=== PATIENT | female | born 1930 | race Caucasian/White ===

== ENCOUNTER 2016-10-28 08:51 | Emergency (ER) | payer MEDICARE ==
[~2016-10-28] VITALS: Ht 167.6 cm; Wt 74.8 kg
[~2016-10-28 08:51] MED LIST: ACET325T21 PO; AMLO10TA2 PO; BETA1TAB10 PO; CARV12.52 PO; CARV25TA2 PO; CARV6.25 PO; CHLO12TA PO; CHLO25TA PO; CHOL10003 PO; DABI150C PO; FERR-26 PO; FURO20TA3 PO; LEVO50TA5 PO; LOSA25TA PO; OMEG500C PO; POTASSIUM CHLO10 MEQ PO; QUIN40TA7 PO
[2016-10-28] MEDS ORDERED: IBUPROFEN 600 MG TABLET. PO ONE (10:15)
[2016-10-28] MEDS ORDERED: HYDROcodone/APAP 5/325MG 1 TAB TABLET PO ONE (10:30)
--- NOTE | 2016-10-28 11:01 | RAD ---
Exam performed: 3 views bilateral knees. History: Chronic bilateral knee pain, worse to the normal. Patient is unable to bear weight. Date of service: 10/28/16. Comparison: None available 3 views bilateral knees findings: Severe narrowing of bilateral medial and lateral tibiofemoral as well as patellofemoral joint compartment is noted with diffuse osteophytic spurring. There is no acute fracture or dislocation. No soft tissue swelling or joint effusion is seen. 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 No acute abnormality noted.
[2016-10-28] MEDS ORDERED: HYDR-971 PO (13:44)
--- NOTE | 2016-10-28 13:45 | PHYS DOC ---
Past Medical History Past Medical History: A-Fib, Hypertension, Hyperthyroid, Other Additional Past Medical Histor: CHRONIC KNEE PAIN, HYPOKALEMIA Past Surgical History: Other Additional Past Surgical Histo: Right shoulder Alcohol Use: Heavy Drug Use: None Adult General Chief Complaint Chief Complaint: LOWER EXT PAIN HPI HPI 86-year-old female with a history of chronic knee pain now complaining of gradually worsening pain in both knees. Patient is having difficulty getting around because her knee pain is so bad. She takes Tylenol and previously took ibuprofen but she is under the impression she was told to stop this medication. No fall or injury no other complaints. Family is concerned about social issues regarding their mother and that she needs alf placement but she is refusing. Review of Systems Review of Systems Constitutional: Denies fever or chills [] Eyes: Denies change in visual acuity, redness, or eye pain [] HENT: Denies nasal congestion or sore throat [] Respiratory: Denies cough or shortness of breath [] Cardiovascular: No additional information not addressed in HPI [] GI: Denies abdominal pain, nausea, vomiting, bloody stools or diarrhea [] : Denies dysuria or hematuria [] Musculoskeletal: Denies back pain or joint pain [] Integument: Denies rash or skin lesions [] Neurologic: Denies headache, focal weakness or sensory changes [] Endocrine: Denies polyuria or polydipsia [] Current Medications Current Medications Current Medications Medications (Trade) Dose Ordered Sig/Ramón Start Time Stop Time Status Last Admin Dose Admin Acetaminophen/ Hydrocodone Bitart (Lortab 5/325) 1 tab 1X ONCE 10/28/16 10:30 10/28/16 10:31 DC 10/28/16 10:32 1 TAB Ibuprofen (Motrin) 600 mg 1X ONCE 10/28/16 10:15 10/28/16 10:16 DC 10/28/16 10:33 600 MG Allergies Allergies Allergies Coded Allergies Type Severity Reaction Last Updated Verified No Known Drug Allergies 08/21/15 No Physical Exam Physical Exam Constitutional: Well developed, well nourished, no acute distress, non-toxic appearance. [] HENT: Normocephalic, atraumatic, bilateral external ears normal, oropharynx moist, no oral exudates, nose normal. [] Eyes: PERRLA, EOMI, conjunctiva normal, no discharge. [] Neck: Normal range of motion, no tenderness, supple, no stridor. [] Cardiovascular:Heart rate regular rhythm, no murmur [] Lungs & Thorax: Bilateral breath sounds clear to auscultation [] Abdomen: Bowel sounds normal, soft, no tenderness, no masses, no pulsatile masses. [] Skin: Warm, dry, no erythema, no rash. [] Back: No tenderness, no CVA tenderness. [] Extremities: Chronic bony deformities of bilateral knees with no skin changes. Mild tenderness of both knees with palpation and in with range of motion. no cyanosis, no clubbing, ROM intact, no edema. [] Neurologic: Alert and oriented X 3, normal motor function, normal sensory function, no focal deficits noted. [] Psychologic: Affect normal, judgement normal, mood normal. [] Current Patient Data Vital Signs Vital Signs Date Time Temp Pulse Resp B/P (MAP) Pulse Ox O2 Delivery O2 Flow Rate FiO2 10/28/16 12:21 76 20 146/77 (100) 97 10/28/16 08:57 98.1 Room Air 98.1 EKG EKG [] Radiology/Procedures Radiology/Procedures [] Course & Med Decision Making Course & Med Decision Making Pertinent Labs and Imaging studies reviewed. (See chart for details) Signs and symptoms consistent with severe chronic arthritis with no acute disease. Patient improved with NSAIDs. She does not have adequate pain control at home. There is no acute bony abnormality whatsoever and no evidence of recent injury. No further workup or treatment is indicated. Family requested social work to discuss increased level of care for mother but no indication for admission excess today. Patient's were to use NSAIDs and will prescribe Markle for use as needed. The PCP for reevaluation and referral to orthopedics as needed to discuss possibility of qualification for knee replacement Arlyn Disclaimer Dragon Disclaimer This electronic medical record was generated, in whole or in part, using a voice recognition dictation system. Departure Departure Impression: Primary Impression: Osteoarthritis Additional Impression: Bilateral knee pain Disposition: HOME, SELF-CARE Condition: GRAVE Referrals: JENNIFER TELLES (PCP) Patient Instructions: Osteoarthritis Additional Instructions: You have severe osteoarthritis of both knees. Your arthritis is very advanced and certainly the cause of your chronic knee pain. Take anti-inflammatory medication as prescribed and use one half of one Markle pill every 6 hours as needed for breakthrough pain. Try to avoid weightbearing by using her walker to the degree that this is possible and follow-up with your doctor in 1 day for reevaluation and to discuss social issues or guarding and increased level of care either at home or with alf placement. Return immediately for new severe worsening symptoms Scripts Hydrocodone/Apap 5-325 (NORCO 5-325 TABLET) 1 Each Tablet 1 TAB PO PRN Q6HRS Y for PAIN, #14 TAB 0 Refills Take 1/2-1 pill every 6 hours as needed for pain Prov: TREV SAUNDERS MD 10/28/16 Problem Qualifiers TREV SAUNDERS MD Oct 28, 2016 13:45
[2016-10-28 14:41] VITALS: BP 176/108
== END 2016-10-28 14:15 | disposition home or self-care (01) ==
LOC: ER 08:51
DX: M17.0 Bilateral primary osteoarthritis of knee (principal); G89.29 Other chronic pain; I10 Essential (primary) hypertension; I48.91 Unspecified atrial fibrillation; E05.90 Thyrotoxicosis, unspecified without thyrotoxic crisis or storm; F10.10 Alcohol abuse, uncomplicated
CPT/HCPCS: 73562; 99284

== ENCOUNTER 2018-03-26 10:33 | Emergency (ER) | payer MEDICARE ==
[~2018-03-26] VITALS: Ht 160 cm; Wt 72.6 kg
[~2018-03-26 10:33] MED LIST changes: -AMLO10TA2 PO; +AMLO10TA6 PO; +CARV12.511 PO; -CARV12.52 PO; -CHLO25TA PO; +CHLO25TA10 PO; -FERR-26 PO; +FERR325T14 PO; +HYDR-3164 PO; +POTA10TA12 PO; -POTASSIUM CHLO10 MEQ PO; +QUIN40TA16 PO; -QUIN40TA7 PO
--- NOTE | 2018-03-26 10:58 | PHYS DOC ---
Past Medical History Past Medical History: A-Fib, Hypertension, Hypothyroid, Other Additional Past Medical Histor: CHRONIC KNEE PAIN, HYPOKALEMIA Past Surgical History: Other Additional Past Surgical Histo: Right shoulder Alcohol Use: Heavy Drug Use: None Adult General Chief Complaint Chief Complaint: ABSCESS HPI HPI Patient is a 88 year old female who presents with swelling over the right face. Patient has had symptoms over the last 3 days. She complains of pain and swelling over the right portion of her face just over the right mandible. Prior to this, she had some suspected dental pain and was evaluated by her primary care doctor last week. He placed her on Augmentin. She is currently on day 4 of this medication. Patient has not had a fever or chills. She became concerned because she noted the area to be draining some purulent material. Review of Systems Review of Systems Constitutional: Denies fever or chills Eyes: Denies change in visual acuity HENT: Denies nasal congestion or sore throat Respiratory: Denies cough or shortness of breath Cardiovascular: No additional information not addressed in HPI GI: Denies abdominal pain, nausea : Denies dysuria or hematuria Musculoskeletal: Denies back pain Neurologic: Denies headache All other systems were reviewed and found to be within normal limits, except as documented in this note. Current Medications Current Medications Current Medications Medications (Trade) Dose Ordered Sig/Ramón Start Time Stop Time Status Last Admin Dose Admin Info (CONTRAST GIVEN -- Rx MONITORING) 1 each PRN DAILY PRN 03/26/18 12:30 03/28/18 12:29 Iohexol (Omnipaque 300 Mg/ml) 50 ml 1X ONCE 03/26/18 12:30 03/26/18 12:31 DC 03/26/18 12:31 50 ML Piperacillin Sod/ Tazobactam Sod (Zosyn Per Pharmacy) 1 each PRN DAILY PRN 03/26/18 13:45 UNV Piperacillin Sod/ Tazobactam Sod 3.375 gm/Sodium Chloride 50 ml @ 100 mls/hr 1X ONCE 03/26/18 13:45 03/26/18 14:14 DC 03/26/18 14:25 100 MLS/HR Sodium Chloride 500 ml @ 500 mls/hr 1X ONCE 03/26/18 11:00 03/26/18 11:59 DC 03/26/18 11:02 500 MLS/HR Vancomycin HCl (Vanco Per Pharmacy) 1 each PRN DAILY PRN 03/26/18 13:45 UNV Vancomycin HCl 1.75 gm/Sodium Chloride 500 ml @ 250 mls/hr 1X ONCE 03/26/18 14:00 03/26/18 15:59 Allergies Allergies Allergies Coded Allergies Type Severity Reaction Last Updated Verified No Known Drug Allergies 08/21/15 No Physical Exam Physical Exam Constitutional: Well developed, well nourished, no acute distress, non-toxic appearance. overall poorly-kempt with visible dirt on the skin of her face and chest HENT: bilateral external ears normal, oropharynx moist, no oral exudates, nose normal, large area of swelling and erythema over the right side of the face just over the angle of the mandible. There is some palpable fluctuance present. There is a area of central necrotic tissue but no ulcerations. No pain with TMJ range of motion. Patient has no teeth on the corresponding mandibular area in the mouth. Neck is supple. Floor of mouth is soft Eyes: PERRLA, EOMI Neck: Normal range of motion Cardiovascular:Heart rate regular rhythm, no murmur Lungs & Thorax: Bilateral breath sounds clear to auscultation Abdomen: Bowel sounds normal, soft, no tenderness Skin: Warm, dry, no erythema, no rash Back: No tenderness, no CVA tenderness Extremities: No edema Neurologic: Alert and oriented X 3 Psychologic: Affect normal Current Patient Data Vital Signs Vital Signs Date Time Temp Pulse Resp B/P (MAP) Pulse Ox O2 Delivery O2 Flow Rate FiO2 03/26/18 13:52 80 113/56 (75) 94 Room Air 03/26/18 10:40 98.1 20 98.1 Lab Values Laboratory Tests Test 03/26/18 11:00 White Blood Count 14.6 x10^3/uL (4.0-11.0) H Red Blood Count 3.81 x10^6/uL (3.50-5.40) Hemoglobin 11.9 g/dL (12.0-15.5) L Hematocrit 35.1 % (36.0-47.0) L Mean Corpuscular Volume 92 fL (79-100) Mean Corpuscular Hemoglobin 31 pg (25-35) Mean Corpuscular Hemoglobin Concent 34 g/dL (31-37) Red Cell Distribution Width 13.8 % (11.5-14.5) Platelet Count 247 x10^3/uL (140-400) Neutrophils (%) (Auto) 85 % (31-73) H Lymphocytes (%) (Auto) 9 % (24-48) L Monocytes (%) (Auto) 5 % (0-9) Eosinophils (%) (Auto) 1 % (0-3) Basophils (%) (Auto) 1 % (0-3) Neutrophils # (Auto) 12.4 x10^3uL (1.8-7.7) H Lymphocytes # (Auto) 1.3 x10^3/uL (1.0-4.8) Monocytes # (Auto) 0.7 x10^3/uL (0.0-1.1) Eosinophils # (Auto) 0.1 x10^3/uL (0.0-0.7) Basophils # (Auto) 0.1 x10^3/uL (0.0-0.2) Sodium Level 139 mmol/L (136-145) Potassium Level 3.7 mmol/L (3.5-5.1) Chloride Level 109 mmol/L (98-107) H Carbon Dioxide Level 20 mmol/L (21-32) L Anion Gap 10 (6-14) Blood Urea Nitrogen 26 mg/dL (7-20) H Creatinine 1.4 mg/dL (0.6-1.0) H Estimated GFR (Cockcroft-Gault) 35.7 Glucose Level 112 mg/dL (70-99) H Calcium Level 9.2 mg/dL (8.5-10.1) Laboratory Tests 03/26/18 11:00 Laboratory Tests 03/26/18 11:00 EKG EKG [] Radiology/Procedures Radiology/Procedures IMPRESSION: 1. There is a complex rim-enhancing fluid collection of the right parotid gland. If there is clinical evidence of infection, parotid abscess is likely. In the setting of infection reactive regional lymph nodes are expected but are not seen on this study. Benign or malignant parotid neoplasm is not excluded. 2. Calcified meningioma of the right CPA-IAC. 3. Large left thyroid goiter with moderate rightward deviation of the trachea. 4. Periapical lucency of right mandible frontal incisor. Course & Med Decision Making Course & Med Decision Making Pertinent Labs and Imaging studies reviewed. (See chart for details) 10:50: Patient is seen and examined. No acute distress. Orders placed for IVF 's, BMP, CBC, and CT scan to further evaluate the patient's primary complaint. 14:15: All results are reviewed. The patient has mild leukocytosis. Otherwise, she is mildly dehydrated but no acute findings on labs. She was given 500 mils of normal saline in the ER. She was also given a dose of vancomycin and Zosyn. Her CT scan was revealing for a abscess over the right face near the parotid gland. I spoke to [facility] transfer line regarding transfer of this patient for evaluation by marketing researcher. The patient was accepted by transfer by Dr. Ancelmo Cunha. Plan is for the patient to go to the emergency department at where she will then be evaluated. Transfer paperwork is complete. Plan of care is discussed with the family and all of their questions are answered. The patient is agreeable. She is able to sign her on transfer papers. , The patient is in poor hygiene in the emergency department. I did ask about this. The patient states most of the day she sits around and smokes cigarettes and she accrues soot over the neck and face. Patient does not endorse feeling any danger at home and feels safe. Dragon Disclaimer Dragon Disclaimer This electronic medical record was generated, in whole or in part, using a voice recognition dictation system. Departure Departure Disposition: 05 TRANSFER OTHER Condition: GOOD Referrals: JENNIFER TELLES (PCP) ANNEMARIE RAMSAY DO Mar 26, 2018 10:58
[2018-03-26] MEDS: IV NORMAL SALINE 500ML BAG 500 ML IV ONE (11:02)
[2018-03-26 11:18] LABS: BASO # 0.1 x10^3/uL (0.0-0.2); BASO % 1 % (0-3); EOS # 0.1 x10^3/uL (0.0-0.7); EOS % 1 % (0-3); HEMATOCRIT 35.1 % (36.0-47.0); HEMOGLOBIN 11.9 g/dL (12.0-15.5); LYMPH # 1.3 x10^3/uL (1.0-4.8); LYMPH % 9 % (24-48); MEAN CORPUSCULAR HEMOGLOBIN 31 pg (25-35); MEAN CORPUSCULAR HGB CONC 34 g/dL (31-37); MEAN CORPUSCULAR VOLUME 92 fL (79-100); MONO # 0.7 x10^3/uL (0.0-1.1); MONO % 5 % (0-9); NEUT # 12.4 x10^3uL (1.8-7.7); NEUT % 85 % (31-73); PLATELET COUNT 247 x10^3/uL (140-400); RED BLOOD COUNT 3.81 x10^6/uL (3.50-5.40); RED CELL DISTRIBUTION WIDTH 13.8 % (11.5-14.5); WHITE BLOOD COUNT 14.6 x10^3/uL (4.0-11.0)
[2018-03-26 11:32] LABS: CALCIUM 9.2 mg/dL (8.5-10.1); CREATININE 1.4 mg/dL (0.6-1.0); GFR 35.7; POTASSIUM 3.7 mmol/L (3.5-5.1)
[2018-03-26] MEDS ORDERED: CONTRAST GIVEN. MC PRN (12:30)
[2018-03-26] MEDS: IOHEXOL 300 MG/ML 100ML VIAL. IV ONE (12:31)
--- NOTE | 2018-03-26 13:10 | RAD ---
PQRS Compliance Statement: One or more of the following individualized dose reduction techniques were utilized for this examination: 1. Automated exposure control 2. Adjustment of the mA and/or kV according to patient size 3. Use of iterative reconstruction technique CT SOFT TISSUE NECK W/CONTRAST Clinical Indication: mass, abscess right ,mandible angle Comparison: None. TECHNIQUE: Helical CT imaging of the soft tissues of the neck is performed after 50 cc of Omnipaque 300 IV contrast. Findings: There is a calcified mass of the right cerebellopontine angle with an intracanicular component. The mass measures approximately 1.5 x 1.5 cm. No midline shift or mass effect in the brain. The globes and orbits are intact. The mastoid air cells are clear. The paranasal sinuses are clear. There is periapical lucency of right mandible frontal incisor. Maxillary teeth are absent. The parapharyngeal fat planes are preserved. The epiglottis and aryepiglottic folds and piriform sinuses are normal. The submandibular glands are symmetric. Bilateral carotid bulb calcifications. The visualized lungs are clear. There is a heterogeneous left thyroid goiter measuring 5.4 x 5 x 6.3 cm. There is moderate rightward deviation of the trachea. There is no cervical adenopathy. At the area of palpable concern there is a superficial hypodensity with rim enhancement measuring approximately 4.5 cm AP by 3.4 cm transverse by 3.7 cm craniocaudal. This arises from the right parotid gland. The right parotid gland is increased in density compared to the contralateral side. Cervical spine alignment is maintained. IMPRESSION: 1. There is a complex rim-enhancing fluid collection of the right parotid gland. If there is clinical evidence of infection, parotid abscess is likely. In the setting of infection reactive regional lymph nodes are expected but are not seen on this study. Benign or malignant parotid neoplasm is not excluded. 2. Calcified meningioma of the right CPA-IAC. 3. Large left thyroid goiter with moderate rightward deviation of the trachea. 4. Periapical lucency of right mandible frontal incisor. Electronically signed by: Manav Abrams MD (03/26/2018 12:45 PM) [id number] [id number]
[2018-03-26] MEDS ORDERED: PIP/TAZO PER PHARMACY MC PRN (13:45)
[2018-03-26] MEDS ORDERED: VANCOMYCIN PER PHARMACY MC PRN (13:45)
[2018-03-26 13:52] VITALS: BP 113/56
[2018-03-26] MEDS: PIPERACILLIN/TAZOBACTAM 3.375 GM in IV NORMAL SALINE 50ML 50 ML IV ONE (14:25)
[2018-03-26] MEDS: VANCOMYCIN 1.75 GM in IV NORMAL SALINE 500ML BAG 500 ML IV ONE (14:37)
== END 2018-03-26 15:03 | disposition short-term general hospital (02) ==
LOC: ER 10:33
DX: L53.8 Other specified erythematous conditions (principal); F17.210 Nicotine dependence, cigarettes, uncomplicated; I48.91 Unspecified atrial fibrillation; I10 Essential (primary) hypertension; E03.9 Hypothyroidism, unspecified; F10.20 Alcohol dependence, uncomplicated; Y90.9 Presence of alcohol in blood, level not specified
CPT/HCPCS: 36415; 70491; 80048; 85025; 96365; 96368; 99285; J2543; J3370; J7040; Q9967

== ENCOUNTER 2018-05-19 11:20 | Inpatient (IN) | payer MEDICARE ==
[~2018-05-19] VITALS: Ht 160 cm; Wt 67.8 kg
[~2018-05-19 11:20] MED LIST changes: -AMLO10TA6 PO; +AMLO10TA8 PO; +ASPI81TA50 PO; +CEPH250C PO; +FAMO20TA5 PO; +FURO40TA4 PO; +HYDR-2761 PO
[2018-05-19] MEDS ORDERED: NICOTINE 21MG PATCH. TD STA (11:29)
[2018-05-19] MEDS ORDERED: methylPREDNISolone SOD SUCC PF 125 MG/2 ML VIAL. IV ONE (11:30)
[2018-05-19] MEDS ORDERED: IV NORMAL SALINE 1000ML BAG 1,000 ML IV ONE (11:30)
[2018-05-19 11:47] LABS: BASO % 1 % (0-3); EOS # 0.1 x10^3/uL (0.0-0.7); EOS % 1 % (0-3); HEMATOCRIT 40.3 % (36.0-47.0); HEMOGLOBIN 13.1 g/dL (12.0-15.5); LYMPH # 1.4 x10^3/uL (1.0-4.8); LYMPH % 13 % (24-48); MEAN CORPUSCULAR HEMOGLOBIN 29 pg (25-35); MEAN CORPUSCULAR HGB CONC 33 g/dL (31-37); MEAN CORPUSCULAR VOLUME 90 fL (79-100); MONO # 0.7 x10^3/uL (0.0-1.1); MONO % 7 % (0-9); NEUT # 8.3 x10^3uL (1.8-7.7); NEUT % 79 % (31-73); PLATELET COUNT 205 x10^3/uL (140-400); RED BLOOD COUNT 4.48 x10^6/uL (3.50-5.40); RED CELL DISTRIBUTION WIDTH 16.8 % (11.5-14.5); WHITE BLOOD COUNT 10.5 x10^3/uL (4.0-11.0)
--- NOTE | 2018-05-19 11:54 | PHYS DOC ---
Past Medical History Past Medical History: A-Fib, Hypertension, Hypothyroid, Other Additional Past Medical Histor: CHRONIC KNEE PAIN, HYPOKALEMIA Past Surgical History: Other Additional Past Surgical Histo: Right shoulder,R GLAND/JAW Alcohol Use: Heavy Drug Use: None Adult General Chief Complaint Chief Complaint: MECHANICAL FALL HPI HPI Patient is a 88 year old female with history of A. fib, hypertension, heavy smoking, who presents to the ED today to be evaluated for follow-up and a rash. Patient states last night she got up to use the bathroom, she states while getting off the toilet, she fell down landing on her buttocks. Patient denies any loss of consciousness, denies hitting her head on the ground, denies being on any anticoagulants. Denies any neck pain. She is complaining of bilateral knee pain she is unable to rate the pain. Patient is also complaining of a pruritic rash throughout her body for a while. EMS states when they got patient' s the house was dirty. Review of Systems Review of Systems Constitutional: Denies fever or chills [] Eyes: Denies change in visual acuity, redness, or eye pain [] HENT: Denies nasal congestion or sore throat [] Respiratory: Denies cough or shortness of breath [] Cardiovascular: No additional information not addressed in HPI [] GI: Denies abdominal pain, nausea, vomiting, bloody stools or diarrhea [] : Denies dysuria or hematuria [] Musculoskeletal: Bilateral knee pain, buttock pain. Integument: Reports rash Neurologic: Denies headache, focal weakness or sensory changes [] All other systems were reviewed and found to be within normal limits, except as documented in this note. Current Medications Current Medications Current Medications Medications (Trade) Dose Ordered Sig/Ramón Start Time Stop Time Status Last Admin Dose Admin Acetaminophen (Tylenol) 650 mg PRN Q4HRS PRN 05/19/18 14:30 05/20/18 14:29 UNV Methylprednisolone Sodium Succinate (SOLU-Medrol 125MG VIAL) 125 mg 1X ONCE 05/19/18 11:30 05/19/18 11:36 DC 05/19/18 11:59 125 MG Morphine Sulfate (Morphine Sulfate) 2 mg PRN Q2HR PRN 05/19/18 14:30 05/20/18 14:29 UNV Nicotine (Nicoderm Cq 21mg) 1 patch 1X STAT 05/19/18 11:29 05/19/18 11:36 DC 05/19/18 11:50 1 PATCH Ondansetron HCl (Zofran) 4 mg PRN Q8HRS PRN 05/19/18 14:30 05/20/18 14:29 UNV Sodium Chloride 1,000 ml @ 1,000 mls/hr 1X ONCE 05/19/18 11:30 05/19/18 12:29 DC 05/19/18 11:56 1,000 MLS/HR Allergies Allergies Allergies Coded Allergies Type Severity Reaction Last Updated Verified No Known Drug Allergies 08/21/15 No Physical Exam Physical Exam Constitutional: Well developed, well nourished, no acute distress, non-toxic appearance. [] HENT: Normocephalic, atraumatic, bilateral external ears normal, oropharynx moist, no oral exudates, nose normal. [] Eyes: PERRLA, EOMI, conjunctiva normal, no discharge. [] Neck: Normal range of motion, no tenderness, supple, no stridor. [] Cardiovascular:Heart rate regular rhythm, no murmur [] Lungs & Thorax: Bilateral breath sounds clear to auscultation [] Abdomen: Bowel sounds normal, soft, no tenderness, no masses, no pulsatile masses. [] Skin: Patient's skin appears dirty. Mild to moderate erythematous macular rash throughout patient's body worse on extremities, back and in between the thighs Back: Slight tenderness on palpation of the lower lumbar spline area, tenderness diffusely on palpation of bilateral knees, no obvious deformities. Full passive range of motion to bilateral knees. +2 bilateral pedal pulses. Sensation intact bilateral lower extremities. Cap refill less than 2 seconds bilateral lower extremities. Extremities: No hip tenderness bilaterally. No cyanosis, no clubbing, ROM intact , no edema. [] Neurologic: Alert and oriented X 3, normal motor function, normal sensory function, no focal deficits noted. Cranial nerves II through XII intact. Psychologic: Affect normal, judgement normal, mood normal. [] Current Patient Data Vital Signs Vital Signs Date Time Temp Pulse Resp B/P (MAP) Pulse Ox O2 Delivery O2 Flow Rate FiO2 05/19/18 11:20 97.3 84 20 115/67 (83) 99 Room Air 97.3 Lab Values Laboratory Tests Test 05/19/18 11:33 05/19/18 11:48 White Blood Count 10.5 x10^3/uL (4.0-11.0) Red Blood Count 4.48 x10^6/uL (3.50-5.40) Hemoglobin 13.1 g/dL (12.0-15.5) Hematocrit 40.3 % (36.0-47.0) Mean Corpuscular Volume 90 fL (79-100) Mean Corpuscular Hemoglobin 29 pg (25-35) Mean Corpuscular Hemoglobin Concent 33 g/dL (31-37) Red Cell Distribution Width 16.8 % (11.5-14.5) H Platelet Count 205 x10^3/uL (140-400) Neutrophils (%) (Auto) 79 % (31-73) H Lymphocytes (%) (Auto) 13 % (24-48) L Monocytes (%) (Auto) 7 % (0-9) Eosinophils (%) (Auto) 1 % (0-3) Basophils (%) (Auto) 1 % (0-3) Neutrophils # (Auto) 8.3 x10^3uL (1.8-7.7) H Lymphocytes # (Auto) 1.4 x10^3/uL (1.0-4.8) Monocytes # (Auto) 0.7 x10^3/uL (0.0-1.1) Eosinophils # (Auto) 0.1 x10^3/uL (0.0-0.7) Basophils # (Auto) 0.0 x10^3/uL (0.0-0.2) Prothrombin Time 13.8 SEC (11.7-14.0) Prothrombin Time INR 1.1 (0.8-1.1) Sodium Level 140 mmol/L (136-145) Potassium Level 3.7 mmol/L (3.5-5.1) Chloride Level 106 mmol/L (98-107) Carbon Dioxide Level 22 mmol/L (21-32) Anion Gap 12 (6-14) Blood Urea Nitrogen 15 mg/dL (7-20) Creatinine 1.3 mg/dL (0.6-1.0) H Estimated GFR (Cockcroft-Gault) 38.8 BUN/Creatinine Ratio 12 (6-20) Glucose Level 109 mg/dL (70-99) H Lactic Acid Level 2.0 mmol/L (0.4-2.0) Calcium Level 8.8 mg/dL (8.5-10.1) Magnesium Level 1.8 mg/dL (1.8-2.4) Total Bilirubin 0.8 mg/dL (0.2-1.0) Aspartate Amino Transferase (AST) 19 U/L (15-37) Alanine Aminotransferase (ALT) 12 U/L (14-59) L Alkaline Phosphatase 66 U/L (46-116) Creatine Kinase 134 U/L (26-192) Creatine Kinase MB (Mass) 1.2 ng/mL (0.0-3.6) Creatine Kinase MB Relative Index 0.9 % (0-4) Troponin I Quantitative 0.026 ng/mL (0.000-0.055) MW-Kjw-Q-Type Natriuretic Peptide 3701 pg/mL (0-449) H Total Protein 6.0 g/dL (6.4-8.2) L Albumin 2.3 g/dL (3.4-5.0) L Albumin/Globulin Ratio 0.6 (1.0-1.7) L Lipase 58 U/L (73-393) L Thyroid Stimulating Hormone (TSH) 1.328 uIU/mL (0.358-3.74) Urine Collection Type U cath Urine Color Yellow Urine Clarity Clear Urine pH 5.5 Urine Specific [place] 1.015 Urine Protein Negative mg/dL (NEG-TRACE) Urine Glucose (UA) Negative mg/dL (NEG) Urine Ketones (Stick) Negative mg/dL (NEG) Urine Blood Negative (NEG) Urine Nitrite Negative (NEG) Urine Bilirubin Negative (NEG) Urine Urobilinogen Dipstick 0.2 mg/dL (0.2 mg/dL) Urine Leukocyte Esterase Negative (NEG) Urine RBC Occ /HPF (0-2) Urine WBC 1-4 /HPF (0-4) Urine Squamous Epithelial Cells Occ /LPF Urine Bacteria Few /HPF (0-FEW) Urine Hyaline Casts Few /HPF Urine Mucus Marked /LPF Urine Opiates Screen Pos (NEG) Urine Methadone Screen Neg (NEG) Urine Barbiturates Neg (NEG) Urine Phencyclidine Screen Neg (NEG) Urine Amphetamine/Methamphetamine Neg (NEG) Urine Benzodiazepines Screen Neg (NEG) Urine Cocaine Screen Neg (NEG) Urine Cannabinoids Screen Neg (NEG) Urine Ethyl Alcohol Neg (NEG) Laboratory Tests 05/19/18 11:33 Laboratory Tests 05/19/18 11:33 EKG EKG 11:40 Interpreted by Beatriz sinus irregular rhythm HR 87 no STEMI[] Radiology/Procedures Radiology/Procedures [] Course & Med Decision Making Course & Med Decision Making Pertinent Labs and Imaging studies reviewed. (See chart for details) This is a 88-year-old female patient presenting to the ED today to be evaluated for 2 things. One she fell last night and has bilateral knee pain and slight buttock pain, no loss of consciousness. 2. She's had a rash that appears systemic for a while. Family is in the room, they state patient has had a rash for one week, this state they believe the rash began after she took Benadryl. Patient's labs do not have anything significantly acute. Urine analysis is no infection. Patient is alert and oriented 3. Lumbar spine x-rays shows patient has compression fractures of L4 and L2. Spoke with Edna KEYES for neurosurgery, she requested we order a CT of the lumbar spine and follow-up with patient. Consulted with Dr. Sweeney who accepted patient for admission. Dragon Disclaimer Dragon Disclaimer This electronic medical record was generated, in whole or in part, using a voice recognition dictation system. Departure Departure Impression: Primary Impression: Fall Additional Impressions: Rash Compression fx, lumbar spine Smoking addiction Disposition: ADMITTED INPATIENT Condition: STABLE Referrals: JENNIFER TELLES (PCP) Problem Qualifiers Primary Impression: Fall Encounter type: initial encounter Qualified Codes: W19.XXXA - Unspecified fall, initial encounter Additional Impressions: Compression fx, lumbar spine Encounter type: initial encounter Lumbar vertebra fracture level: L4 Fracture type: closed Qualified Codes: S32.040A - Wedge compression fracture of fourth lumbar vertebra, initial encounter for closed fracture EVELIN JOHANSEN BOARDING ROOM FIXER May 19, 2018 11:54
[2018-05-19 11:56] LABS: BILIRUBIN,URINE NEGATIVE (NEG); CLARITY,URINE CLEAR; COLOR,URINE YELLOW; NITRITE,URINE NEGATIVE (NEG); PH,URINE 5.5; PROTEIN,URINE NEGATIVE (NEG-TRACE); UROBILINOGEN,URINE 0.2 mg/dL (0.2 mg/dL)
[2018-05-19 11:57] LABS: PROTHROMBIN TIME PATIENT 13.8 SEC (11.7-14.0)
[2018-05-19 12:02] LABS: CALCIUM 8.8 mg/dL (8.5-10.1); CREATININE 1.3 mg/dL (0.6-1.0); GFR 38.8; POTASSIUM 3.7 mmol/L (3.5-5.1)
[2018-05-19 12:04] LABS: BARBITURATES NEG (NEG); BENZODIAZEPINES NEG (NEG); CANNABINOIDS NEG (NEG); COCAINE NEG (NEG); HYALINE CASTS, URINE FEW /HPF; METHADONE NEG (NEG); OPIATES POS (NEG); PHENCYCLIDINE NEG (NEG); SQUAMOUS EPITHELIAL CELL,UR OCC /LPF
[2018-05-19 12:06] LABS: BACTERIA,URINE FEW /HPF (0-FEW); RBC,URINE OCC /HPF (0-2)
[2018-05-19 12:08] LABS: ALBUMIN 2.3 g/dL (3.4-5.0); ALBUMIN/GLOBULIN RATIO 0.6 (1.0-1.7); MAGNESIUM 1.8 mg/dL (1.8-2.4); TOTAL BILIRUBIN 0.8 mg/dL (0.2-1.0)
[2018-05-19 12:08] LABS: AMPHETAMINE/METHAMPHETAMINE NEG (NEG)
--- NOTE | 2018-05-19 13:00 | RAD ---
PQRS Compliance Statement: One or more of the following individualized dose reduction techniques were utilized for this examination: 1. Automated exposure control 2. Adjustment of the mA and/or kV according to patient size 3. Use of iterative reconstruction technique CT HEAD WITHOUT CONTRAST History: AMS, fall. Comparison: CT head without contrast 04/13/2018. Technique: Axial images are obtained of the head from the skull base through the vertex without IV contrast. Findings: No mass-effect, midline shift, extra-axial fluid collection, hemorrhage, or obvious acute infarction is identified. Basilar cisterns are patent. The ventricles and sulci are prominent, consistent with age-related cerebral atrophy. There is mild supratentorial white matter hypoattenuation. This is a nonspecific finding but is commonly due to chronic small vessel ischemic disease. Bone windows demonstrate no acute calvarial abnormality. There is a 1.4 cm x 0.9 cm homogeneously calcified mass of the right cerebellopontine angle. Primary consideration is a meningioma. This may partially block the right internal auditory canal. Small air-fluid level in the left maxillary sinus. Mastoid air cells are well aerated. IMPRESSION: 1. No acute intracranial hemorrhage or obvious infarct. 2. Calcified mass of the right cerebellopontine angle, primary consideration is a meningioma. If diagnosis is not known recommend MR brain with and without contrast, IAC protocol. 3. Mild periventricular white matter changes probably due to chronic small vessel ischemic disease. Generalized cerebral atrophy. 4. Small air-fluid level in the left maxillary sinus suggests acute sinusitis. Electronically signed by: Manav Abrams MD (05/19/2018 12:57 PM) [id number]
--- NOTE | 2018-05-19 13:17 | RAD ---
Portable chest, 05/19/2018: HISTORY: Fall Comparison is made to a study from 01/25/2016. The heart is enlarged. There is calcific plaquing and tortuosity of the thoracic aorta. The pulmonary vascularity is normal. A density overlying the right upper chest is most likely due to an overlying soft tissue density or skinfold. There is minimal linear atelectasis or scarring laterally in the left base. There is no evidence of pleural fluid or pneumothorax. Moderate spurring is present in the spine. A surgical plate and screws is partially visualized in the proximal right humerus. IMPRESSION: 1. Cardiomegaly and aortic atherosclerosis. 2. Probable skin fold overlying the right upper chest. PA and lateral chest radiographs may be useful for confirmation, if clinically indicated Electronically signed by: Roberto Morgan MD (05/19/2018 1:15 PM) [facility]
--- NOTE | 2018-05-19 13:21 | RAD ---
Left knee, 3 views, 05/19/2018: HISTORY: Chronic pain, recent fall The bony structures are demineralized. There is severe narrowing of the left knee joint with marginal spurring and articular irregularity. There is extensive patellofemoral hypertrophic degenerative change. No acute fracture or dislocation is identified. No significant joint effusion is evident. Moderate arterial calcifications are noted. IMPRESSION: 1. Demineralization. 2. Severe hypertrophic degenerative change at the left knee. 3. No acute bony abnormality is detected. Lumbar spine, 3 views, 05/19/2018: HISTORY: Fall, pain The bony structures are demineralized. There is a moderate vertebral compression deformity at L4 and a mild vertebral compression deformity at L2, both which were not present on CT images from 08/23/2015. There are moderate scattered marginal spurs. There is moderate to severe facet joint arthropathy bilaterally in the lower lumbar spine. Moderate aortoiliac calcific plaquing is present. IMPRESSION: 1. Demineralization. 2. Moderate degenerative change. 3. L4 and L2 vertebral compression fractures which are new since 08/23/2015. Electronically signed by: Roberto Morgan MD (05/19/2018 1:19 PM) [facility]
[2018-05-19] MEDS ORDERED: MORPHINE SULFATE 2 MG/ML VIAL. IV PRN (14:30)
[2018-05-19] MEDS ORDERED: ONDANSETRON PF 4 MG/2 ML VIAL. IV PRN (14:30)
[2018-05-19] MEDS ORDERED: ACETAMINOPHEN 325 MG TABLET. PO PRN (14:30)
--- NOTE | 2018-05-19 15:19 | PDOC1 ---
History and Physical Date of Admission Date of Admission DATE: 05/19/18 TIME: 15:19 Source Source: Caregiver, Chart review, Patient History of Present Illness History of Present Illness Ms. Alonso, is a 88 year old female admit from ER s/p a fall at home, right knee pain and back pain. She has with history of A. fib, hypertension, tobacco use. prior admit here last month acute renal failure and UTI. she complains of back pain and knee pain and severe rash, beefy red rash to buttock and trunk and thighs, her son has been putting A+D ointment and OTC meds on with no improfement, rash has puritic sensation she fell last night off the toilet onto her buttock and now having pain. no LOC. pt brought by EMS, could not walk, Past Medical History Cardiovascular: AFIB, HTN Pulmonary: No pertinent hx CENTRAL NERVOUS SYSTEM: Other GI: Gastritis Heme/Onc: No pertinent hx Hepatobiliary: No pertinent hx Psych: No pertinent hx Musculoskeletal: Osteoarthritis Rheumatologic: No pertinent hx Infectious disease: No pertinent hx Renal/: No pertinent hx Endocrine: Hypothyroidism Past Surgical History Past Surgical History: Cataract Removal, Other Family History Family History: No Significant, Family History Unknown, Other Social History Smoke: 1 pack per day (or more) ALCOHOL: none Drugs: None Current Problem List Problem List Problems Medical Problems: (1) Compression fx, lumbar spine Status: Acute (2) Fall Status: Acute (3) Rash Status: Acute (4) Smoking addiction Status: Acute Current Medications Current Medications Current Medications Methylprednisolone Sodium Succinate (SOLU-Medrol 125MG VIAL) 125 mg 1X ONCE IV Last administered on 05/19/18at 11:59; Start 05/19/18 at 11:30; Stop 05/19/18 at 11:36; Status DC Sodium Chloride 1,000 ml @ 1,000 mls/hr 1X ONCE IV Last administered on at 11:56; Start 05/19/18 at 11:30; Stop 05/19/18 at 12:29; Status DC Nicotine (Nicoderm Cq 21mg) 1 patch 1X STAT TD Last administered on 05/19/18at 11:50; Start 05/19/18 at 11:29; Stop 05/19/18 at 11:36; Status DC Ondansetron HCl (Zofran) 4 mg PRN Q8HRS PRN IV NAUSEA/VOMITING; Start 05/19/18 at 14:30; Stop 05/20/18 at 14:29 Morphine Sulfate (Morphine Sulfate) 2 mg PRN Q2HR PRN IV PAIN; Start 05/19/18 at 14:30; Stop 05/20/18 at 14:29 Acetaminophen (Tylenol) 650 mg PRN Q4HRS PRN PO FEVER; Start 05/19/18 at 14:30 ; Stop 05/20/18 at 14:29 Aspirin (Ecotrin) 81 mg DAILY PO ; Start 05/20/18 at 09:00 Carvedilol (Coreg) 6.25 mg BIDWMEALS PO ; Start 05/19/18 at 17:00 Cephalexin HCl (Keflex) 250 mg QID PO ; Start 05/19/18 at 17:00 Famotidine (Pepcid) 20 mg DAILY PO ; Start 05/20/18 at 09:00 Acetaminophen/ Hydrocodone Bitart (Lortab 5/325) 1 tab PRN Q4HRS PRN PO MODERATE PAIN; Start 05/19/18 at 14:45 Losartan Potassium (Cozaar) 25 mg DAILY PO ; Start 05/20/18 at 09:00 Potassium Chloride (Klor-Con) 10 meq DAILY PO ; Start 05/20/18 at 09:00 Active Scripts Active Cephalexin 250 Mg Capsule 250 Mg PO QID 5 Days Hydrocodone-Apap 5-325 (Hydrocodone Bit/Acetaminophen) 1 Tab Tablet 1 Tab PO PRN Q4-6HRS PRN 5 Days Cozaar (Losartan Potassium) 25 Mg Tablet 25 Mg PO DAILY Reported Famotidine 20 Mg Tablet 20 Mg PO DAILY Aspir-Low (Aspirin) 81 Mg Tablet.dr 81 Mg PO DAILY Furosemide 40 Mg Tablet 40 Mg PO DAILY Coreg (Carvedilol) 6.25 Mg Tablet 6.25 Mg PO BIDWMEALS Potassium Chloride 10 Meq Capsule.er 10 Meq PO DAILY Allergies Allergies: Coded Allergies: No Known Drug Allergies (Unverified , 08/21/15) ROS General: YES: Fatigue, Malaise PSYCHOLOGICAL ROS: YES: Sleep disturbances Eyes: No Blurry vision, No Decreased vision, No Double vision, No Dry eyes, No Excessive tearing, No Eye Pain, No Itchy Eyes, No Loss of vision, No Photophobia , No Scotomata, No Uses contacts, No Uses glasses, No Other HEENT: No: Heacaches, Visual Changes, Hearing change, Nasal congestion, Nasal discharge, Oral lesions, Sinus pain, Sore Throat, Epistaxis, Sneezing, Snoring, Tinnitus, Vertigo, Vocal changes, Other Respiratory: YES: Cough; No: Hemoptysis, Orthopnea, Pleuritic Pain, Shortness of breath, SOB with excertion, Sputum Changes, Stridor, Tachypnea, Wheezing, Other Cardiovascular: No Chest Pain, No Palpitations, No Orthopnea, No Paroxysmal Noc. Dyspnea, No Edema, No Lt Headedness, No Other Gastrointestinal: No Nausea, No Vomiting, No Abdominal Pain, No Diarrhea, No Constipation, No Melena, No Hematochezia, No Other Genitourinary: No Dysuria, No Frequency, No Incontinence, No Hematuria, No Retention, No Discharge, No Urgency, No Pain, No Flank Pain, No Other, No , No , No , No , No , No , No Musculoskeletal: Yes Gait Disturbance, Yes Joint Stiffness, Yes Muscular Weakness, Yes Pain In: (knee) Skin: Yes Dry Skin, Yes Eczema, Yes Rash, Yes Other Physical Exam General: Alert, Oriented X3, Cooperative, mild distress, Other (sunken face, ) HEENT: EOMI, Other Lungs: Clear to auscultation, Normal air movement Heart: no gallops Abdomen: Normal bowel sounds, Soft Rectal Exam: not examined Extremities: Other (right knee severe pain, poor mobility, tr edema) Skin: Other (large diffuse area of rash, mult skin thinkening on face, ) Neuro: Sensation intact Psych/Mental Status: Mood NL Vitals Vitals Vital Signs Date Time Temp Pulse Resp B/P (MAP) Pulse Ox O2 Delivery O2 Flow Rate FiO2 05/19/18 11:20 97.3 84 20 115/67 (83) 99 Room Air 97.3 Labs Labs Laboratory Tests Test 05/19/18 11:33 05/19/18 11:48 White Blood Count 10.5 x10^3/uL (4.0-11.0) Red Blood Count 4.48 x10^6/uL (3.50-5.40) Hemoglobin 13.1 g/dL (12.0-15.5) Hematocrit 40.3 % (36.0-47.0) Mean Corpuscular Volume 90 fL (79-100) Mean Corpuscular Hemoglobin 29 pg (25-35) Mean Corpuscular Hemoglobin Concent 33 g/dL (31-37) Red Cell Distribution Width 16.8 % (11.5-14.5) Platelet Count 205 x10^3/uL (140-400) Neutrophils (%) (Auto) 79 % (31-73) Lymphocytes (%) (Auto) 13 % (24-48) Monocytes (%) (Auto) 7 % (0-9) Eosinophils (%) (Auto) 1 % (0-3) Basophils (%) (Auto) 1 % (0-3) Neutrophils # (Auto) 8.3 x10^3uL (1.8-7.7) Lymphocytes # (Auto) 1.4 x10^3/uL (1.0-4.8) Monocytes # (Auto) 0.7 x10^3/uL (0.0-1.1) Eosinophils # (Auto) 0.1 x10^3/uL (0.0-0.7) Basophils # (Auto) 0.0 x10^3/uL (0.0-0.2) Prothrombin Time 13.8 SEC (11.7-14.0) Prothromb Time International Ratio 1.1 (0.8-1.1) Sodium Level 140 mmol/L (136-145) Potassium Level 3.7 mmol/L (3.5-5.1) Chloride Level 106 mmol/L (98-107) Carbon Dioxide Level 22 mmol/L (21-32) Anion Gap 12 (6-14) Blood Urea Nitrogen 15 mg/dL (7-20) Creatinine 1.3 mg/dL (0.6-1.0) Estimated GFR (Cockcroft-Gault) 38.8 BUN/Creatinine Ratio 12 (6-20) Glucose Level 109 mg/dL (70-99) Lactic Acid Level 2.0 mmol/L (0.4-2.0) Calcium Level 8.8 mg/dL (8.5-10.1) Magnesium Level 1.8 mg/dL (1.8-2.4) Total Bilirubin 0.8 mg/dL (0.2-1.0) Aspartate Amino Transf (AST/SGOT) 19 U/L (15-37) Alanine Aminotransferase (ALT/SGPT) 12 U/L (14-59) Alkaline Phosphatase 66 U/L (46-116) Creatine Kinase 134 U/L (26-192) Creatine Kinase MB (Mass) 1.2 ng/mL (0.0-3.6) Creatine Kinase MB Relative Index 0.9 % (0-4) Troponin I Quantitative 0.026 ng/mL (0.000-0.055) [id number]-Type Natriuretic Peptide 3701 pg/mL (0-449) Total Protein 6.0 g/dL (6.4-8.2) Albumin 2.3 g/dL (3.4-5.0) Albumin/Globulin Ratio 0.6 (1.0-1.7) Lipase 58 U/L (73-393) Thyroid Stimulating Hormone (TSH) 1.328 uIU/mL (0.358-3.74) Urine Collection Type U cath Urine Color Yellow Urine Clarity Clear Urine pH 5.5 Urine Specific [place] 1.015 Urine Protein Negative mg/dL (NEG-TRACE) Urine Glucose (UA) Negative mg/dL (NEG) Urine Ketones (Stick) Negative mg/dL (NEG) Urine Blood Negative (NEG) Urine Nitrite Negative (NEG) Urine Bilirubin Negative (NEG) Urine Urobilinogen Dipstick 0.2 mg/dL (0.2 mg/dL) Urine Leukocyte Esterase Negative (NEG) Urine RBC Occ /HPF (0-2) Urine WBC 1-4 /HPF (0-4) Urine Squamous Epithelial Cells Occ /LPF Urine Bacteria Few /HPF (0-FEW) Urine Hyaline Casts Few /HPF Urine Mucus Marked /LPF Urine Opiates Screen Pos (NEG) Urine Methadone Screen Neg (NEG) Urine Barbiturates Neg (NEG) Urine Phencyclidine Screen Neg (NEG) Urine Amphetamine/Methamphetamine Neg (NEG) Urine Benzodiazepines Screen Neg (NEG) Urine Cocaine Screen Neg (NEG) Urine Cannabinoids Screen Neg (NEG) Urine Ethyl Alcohol Neg (NEG) Laboratory Tests Test 05/19/18 11:33 05/19/18 11:48 White Blood Count 10.5 x10^3/uL (4.0-11.0) Red Blood Count 4.48 x10^6/uL (3.50-5.40) Hemoglobin 13.1 g/dL (12.0-15.5) Hematocrit 40.3 % (36.0-47.0) Mean Corpuscular Volume 90 fL (79-100) Mean Corpuscular Hemoglobin 29 pg (25-35) Mean Corpuscular Hemoglobin Concent 33 g/dL (31-37) Red Cell Distribution Width 16.8 % (11.5-14.5) Platelet Count 205 x10^3/uL (140-400) Neutrophils (%) (Auto) 79 % (31-73) Lymphocytes (%) (Auto) 13 % (24-48) Monocytes (%) (Auto) 7 % (0-9) Eosinophils (%) (Auto) 1 % (0-3) Basophils (%) (Auto) 1 % (0-3) Neutrophils # (Auto) 8.3 x10^3uL (1.8-7.7) Lymphocytes # (Auto) 1.4 x10^3/uL (1.0-4.8) Monocytes # (Auto) 0.7 x10^3/uL (0.0-1.1) Eosinophils # (Auto) 0.1 x10^3/uL (0.0-0.7) Basophils # (Auto) 0.0 x10^3/uL (0.0-0.2) Prothrombin Time 13.8 SEC (11.7-14.0) Prothromb Time International Ratio 1.1 (0.8-1.1) Sodium Level 140 mmol/L (136-145) Potassium Level 3.7 mmol/L (3.5-5.1) Chloride Level 106 mmol/L (98-107) Carbon Dioxide Level 22 mmol/L (21-32) Anion Gap 12 (6-14) Blood Urea Nitrogen 15 mg/dL (7-20) Creatinine 1.3 mg/dL (0.6-1.0) Estimated GFR (Cockcroft-Gault) 38.8 BUN/Creatinine Ratio 12 (6-20) Glucose Level 109 mg/dL (70-99) Lactic Acid Level 2.0 mmol/L (0.4-2.0) Calcium Level 8.8 mg/dL (8.5-10.1) Magnesium Level 1.8 mg/dL (1.8-2.4) Total Bilirubin 0.8 mg/dL (0.2-1.0) Aspartate Amino Transf (AST/SGOT) 19 U/L (15-37) Alanine Aminotransferase (ALT/SGPT) 12 U/L (14-59) Alkaline Phosphatase 66 U/L (46-116) Creatine Kinase 134 U/L (26-192) Creatine Kinase MB (Mass) 1.2 ng/mL (0.0-3.6) Creatine Kinase MB Relative Index 0.9 % (0-4) Troponin I Quantitative 0.026 ng/mL (0.000-0.055) RS-[id number]-S-Type Natriuretic Peptide 3701 pg/mL (0-449) Total Protein 6.0 g/dL (6.4-8.2) Albumin 2.3 g/dL (3.4-5.0) Albumin/Globulin Ratio 0.6 (1.0-1.7) Lipase 58 U/L (73-393) Thyroid Stimulating Hormone (TSH) 1.328 uIU/mL (0.358-3.74) Urine Collection Type U cath Urine Color Yellow Urine Clarity Clear Urine pH 5.5 Urine Specific [place] 1.015 Urine Protein Negative mg/dL (NEG-TRACE) Urine Glucose (UA) Negative mg/dL (NEG) Urine Ketones (Stick) Negative mg/dL (NEG) Urine Blood Negative (NEG) Urine Nitrite Negative (NEG) Urine Bilirubin Negative (NEG) Urine Urobilinogen Dipstick 0.2 mg/dL (0.2 mg/dL) Urine Leukocyte Esterase Negative (NEG) Urine RBC Occ /HPF (0-2) Urine WBC 1-4 /HPF (0-4) Urine Squamous Epithelial Cells Occ /LPF Urine Bacteria Few /HPF (0-FEW) Urine Hyaline Casts Few /HPF Urine Mucus Marked /LPF Urine Opiates Screen Pos (NEG) Urine Methadone Screen Neg (NEG) Urine Barbiturates Neg (NEG) Urine Phencyclidine Screen Neg (NEG) Urine Amphetamine/Methamphetamine Neg (NEG) Urine Benzodiazepines Screen Neg (NEG) Urine Cocaine Screen Neg (NEG) Urine Cannabinoids Screen Neg (NEG) Urine Ethyl Alcohol Neg (NEG) VTE Prophylaxis Ordered VTE Prophylaxis Devices: No VTE Pharmacological Prophylaxi: Yes Assessment/Plan Assessment/Plan fall, back pain, right knee pain, poor mobility weakness and debility serious diffuse rash to trunk and groin - try nystatin powder, consult Derm and wound care CKD3 severe malnutrition, consult nutrition admit, discussed with son in the ER TATYANA HAQUE MD May 19, 2018 15:19
[2018-05-19] MEDS ORDERED: NICOTINE 21MG PATCH. TD PRN (15:30)
--- NOTE | 2018-05-19 15:55 | RAD ---
EXAM: CT lumbar spine without contrast. HISTORY: Back pain, fall, compression fractures. TECHNIQUE: CT of the lumbar spine was performed without intravenous contrast. COMPARISON: Today's radiograph. FINDINGS: There is a small left pleural effusion. And mitral valve annular calcifications are noted. A large gallstone is partially visualized. There are diffuse aortic atherosclerotic calcifications without aneurysm. Overall alignment of the lumbar spine is maintained. Osteopenia is severe. There are compression deformities at all lumbar levels. These are minimal at L1, moderate at L2, L3 and L5, and moderate to severe at L4-5. There are also mild at T11 and T12. No definitively acute fractures are seen, but at least a subacute component is suspected at L4. Sensitivity is low in the setting of severe osteopenia. Disc heights are preserved. Vacuum disc phenomenon are seen from L1 through L5. Facet osteoarthritis is moderate to severe from L3 through S1 and moderate more superiorly. Neural foraminal stenosis is moderate to severe bilaterally from L2 through L5 and mild to moderate at L1-2 and L5-S1. Central canal stenosis is moderate to severe from L3 through L5 and moderate at L2-3. IMPRESSION: 1. Compression fractures at all levels from T11 through L5 to moderate/severe at L4. Severe osteopenia limits assessment for acute fractures, but none are clearly seen and there is no malalignment. MRI could further evaluate fractures if there is persistent concern. 2. Central canal stenosis is moderate at L2-3 and moderate to severe from L3 through L5. There is diffuse moderate to severe neural foraminal stenosis as above. MRI could further assess stenosis if there is persistent concern. 3. Cholelithiasis. *One or more of the following individualized dose reduction techniques were utilized for this examination: 1. Automated exposure control. 2. Adjustment of the mA and/or kV according to patient size. 3. Use of iterative reconstruction technique. Electronically signed by: Bi Ziegler MD (05/19/2018 3:52 PM) [place] [id number]
--- NOTE | 2018-05-19 16:08 | EKG ---
[facility] [address] [place] [address] Test Date: 2018-05-19 Test Time: 11:40:20 Pat Name: CRISTO TANG Department: Room: Gender: F Health Director: : [id number] Requested By: EVELIN JOHANSEN Order Number: [id number] Reading MD: Dnucan Rojas MD Measurements Intervals [place] Rate: 87 P: ME: QRS: 49 QRSD: 70 T: -9 QT: 380 QTc: 458 Interpretive Statements ATRIAL FIBRILLATION WITH CONTROLLED VENTRICULAR RESPONSE PVC Electronically Signed On 05-27-2018 9:43:33 CDT by Duncan Rojas MD
[2018-05-19] MEDS: HYDROcodone/APAP 5/325MG 1 TAB TABLET PO PRN (16:47)
[2018-05-19] MEDS: CARVEDILOL 6.25 MG TABLET. PO SCH (16:47)
[2018-05-19] MEDS: CEPHALEXIN 250 MG CAPSULE. PO SCH ×2 (16:47→21:00)
[2018-05-19] MEDS ORDERED: methylPREDNISolone ACETATE 40 MG/ML VIAL. IM ONE (17:00)
[2018-05-19] MEDS ORDERED: BUPIVACAINE MPF 0.25% 10 ML VIAL. IJ ONE (17:00)
[2018-05-19 19:00] VITALS: BP 113/54
[2018-05-19] MEDS: DICLOFENAC SODIUM 1% TOPICAL GEL 100GM TUBE. TP SCH (21:00)
[2018-05-19] MEDS: NYSTATIN TOPICAL POWDER 15GM BOTTLE. TP SCH (21:00)
[2018-05-19 23:00] VITALS: BP 110/71
[2018-05-20 03:00] VITALS: BP 131/56
[2018-05-20 05:16] LABS: BASO % 0 % (0-3); EOS % 0 % (0-3); HEMATOCRIT 37.6 % (36.0-47.0); HEMOGLOBIN 12.4 g/dL (12.0-15.5); LYMPH % 13 % (24-48); MEAN CORPUSCULAR HEMOGLOBIN 30 pg (25-35); MEAN CORPUSCULAR HGB CONC 33 g/dL (31-37); MEAN CORPUSCULAR VOLUME 90 fL (79-100); MONO # 0.2 x10^3/uL (0.0-1.1); MONO % 2 % (0-9); NEUT # 6.2 x10^3uL (1.8-7.7); NEUT % 84 % (31-73); PLATELET COUNT 184 x10^3/uL (140-400); RED BLOOD COUNT 4.17 x10^6/uL (3.50-5.40); RED CELL DISTRIBUTION WIDTH 17.1 % (11.5-14.5); WHITE BLOOD COUNT 7.3 x10^3/uL (4.0-11.0)
[2018-05-20 05:29] LABS: CALCIUM 8.9 mg/dL (8.5-10.1); GFR 52.6; POTASSIUM 3.9 mmol/L (3.5-5.1)
[2018-05-20 07:00] VITALS: BP 131/83
--- NOTE | 2018-05-20 07:27 | CONS ---
DATE OF CONSULTATION: 05/19/2018 ATTENDING PHYSICIAN: Dr. Sweeney. The patient was seen at the request of Dr. Sweeney for rehab evaluation. HISTORY OF PRESENT ILLNESS: This is an 88-year-old female admitted on 05/19/2018, after she apparently had a fall at home, complaining of lower back and right knee pain. The patient with known atrial fibrillation, hypertension, still smokes. The patient was admitted in the past, last month for acute renal failure and urinary tract infection. The patient complains of right knee pain and back pain and weepy red rash to her buttock, trunk and thighs and her son had been using A and D ointment and [id number] medication like Benadryl without much improvement, rash had pruritic sensation. She apparently fell last night off the toilet onto her buttocks and having pain. No apparent loss of consciousness. The patient usually gets up from a lift chair and walks a few feet using a roller walker and to the commode, other than that she does not get much activity. The patient with known gastritis, degenerative joint disease, hypothyroidism, not known allergic to any medication, status post cataract surgery. She still smokes a pack of cigarettes per day. The patient had radiological studies, which revealed multiple lower thoracic and lumbar vertebral body compression fractures of indeterminate age secondary to significant osteoporosis, also right knee x-ray showed osteoporosis and degenerative joint disease changes with bone spurs at edges. CT scan of the brain failed to reveal any acute abnormality other than chronic microvascular ischemic changes and possible calcified lesion might be meningioma. The patient denies any trouble with her bowel or bladder control. PHYSICAL EXAMINATION: Today revealed an elderly female. She is alert, oriented to time, place, person and circumstance and follows commands appropriately, moves all 4 extremities voluntarily where she had 4/5 to 4+/5 grade muscle strength. Deep tendon reflexes are 2+ and symmetrical with absent ankle jerks and she had equal perception of touch and pinprick sensation bilaterally. The patient had no significant tenderness to palpation over thoracic or lumbar spine or adjoining paraspinal muscles or sacroiliac joint area and straight leg raising test is negative bilaterally. She had crepitus on range of motion of both knee joints with knee joint effusion. The patient had weepy red skin rash, more so over her lumbar area, buttocks and groin and anterior aspect of her thighs and dry scaly skin over thoracic level in the back. She requires some assistance in rolling from side to side. I have not tested her transfers or ambulation skills at this time. ASSESSMENT: An elderly female with significant deconditioned state does not get much activity with severe osteoporosis with probable old lower thoracic and lumbar vertebral body compression fractures and degenerative joint disease of both knees with associated osteoporosis with painful right knee, clinical evidence of peripheral neuropathy. The patient with known atrial fibrillation, hypertension, gastritis, hypothyroidism, last hospitalization for urinary tract infection and acute renal failure. She apparently takes hydrocodone 5/325 mg four times a day for right knee pain given by Dr. Cornel Lambert, her family physician. RECOMMENDATION: At her request, I have injected painful right knee joint under aseptic skin technique after skin preparation using 2 mL of 0.25% Marcaine solution mixed with 1 mL of Depo-Medrol 40 mg per 1 mL solution and she tolerated the procedure satisfactorily without any side effects to get her up as tolerated. I agree with consultation with Dr. Pierre about her skin rash, hopefully home when medically stable with home health followup in the next day or so. Dr. Sweeney, I appreciate asking me to participate in the care of this interesting patient. I will be glad to follow her with you as needed for her rehabilitation. QUYEN ADAN MD DR: KIRIT/david JOB#: [id number] / [id number]
[2018-05-20] MEDS: FAMOTIDINE 20 MG TABLET. PO SCH (08:05)
[2018-05-20] MEDS: CEPHALEXIN 250 MG CAPSULE. PO SCH ×4 (08:05→21:16)
[2018-05-20] MEDS: ASPIRIN ENTERIC COATED 81 MG TABLET.DR. PO SCH (08:05)
[2018-05-20] MEDS: POTASSIUM CHLORIDE 10 MEQ TABLET.ER. PO SCH (08:05)
[2018-05-20] MEDS: LOSARTAN POTASSIUM 25 MG TABLET. PO SCH (08:06)
[2018-05-20] MEDS: DICLOFENAC SODIUM 1% TOPICAL GEL 100GM TUBE. TP SCH ×2 (08:06→21:19)
[2018-05-20] MEDS: CARVEDILOL 6.25 MG TABLET. PO SCH ×2 (08:06→15:46)
[2018-05-20] MEDS: NYSTATIN TOPICAL POWDER 15GM BOTTLE. TP SCH ×2 (08:06→21:17)
[2018-05-20] MEDS: HYDROcodone/APAP 5/325MG 1 TAB TABLET PO PRN (09:54)
[2018-05-20] MEDS ORDERED: CELECOXIB 100 MG CAPSULE. PO SCH (10:00)
--- NOTE | 2018-05-20 10:52 | PDOC ---
PROGRESS NOTES Chief Complaint Chief Complaint fall, back pain, right knee pain, poor mobility weakness and debility eryhtematous diffuse rash to trunk and groin - CKD3 severe malnutrition, OSteoporosis, highly likely\\ FULL CODE History of Present Illness History of Present Illness RAsh which sons claim is pruritic but she seems calm and, not scratching Very hard of hearing Agreeable to SN[facility] Did work with physical therapy today - walked around the room L3 and L4 compression fracture seems to be chronic-patient not complaining of back pain Status post knee injections by physiatry and significant improvement already as relayed by alysa Plan: full code as discussed with alysa Trial of Celebrex 100 twice a day Check vitamin D levels Social work for SNU screen FULL CODE Vitals Vitals Vital Signs Date Time Temp Pulse Resp B/P (MAP) Pulse Ox O2 Delivery O2 Flow Rate FiO2 05/20/18 10:43 Room Air 05/20/18 08:06 69 131/83 05/20/18 07:00 97.3 18 98 97.3 Physical Exam General: Alert, Oriented X3, Cooperative, mild distress, Other (sunken face, ) Lungs: Clear Abdomen: Normal bowel sounds, Soft Extremities: Other (right knee severe pain, poor mobility, tr edema) Skin: Other (large diffuse area of rash, mult skin thinkening on face, ) Labs LABS Laboratory Tests Test 05/19/18 11:33 05/19/18 11:48 05/20/18 04:45 White Blood Count 10.5 x10^3/uL (4.0-11.0) 7.3 x10^3/uL (4.0-11.0) Red Blood Count 4.48 x10^6/uL (3.50-5.40) 4.17 x10^6/uL (3.50-5.40) Hemoglobin 13.1 g/dL (12.0-15.5) 12.4 g/dL (12.0-15.5) Hematocrit 40.3 % (36.0-47.0) 37.6 % (36.0-47.0) Mean Corpuscular Volume 90 fL (79-100) 90 fL (79-100) Mean Corpuscular Hemoglobin 29 pg (25-35) 30 pg (25-35) Mean Corpuscular Hemoglobin Concent 33 g/dL (31-37) 33 g/dL (31-37) Red Cell Distribution Width 16.8 % (11.5-14.5) 17.1 % (11.5-14.5) Platelet Count 205 x10^3/uL (140-400) 184 x10^3/uL (140-400) Neutrophils (%) (Auto) 79 % (31-73) 84 % (31-73) Lymphocytes (%) (Auto) 13 % (24-48) 13 % (24-48) Monocytes (%) (Auto) 7 % (0-9) 2 % (0-9) Eosinophils (%) (Auto) 1 % (0-3) 0 % (0-3) Basophils (%) (Auto) 1 % (0-3) 0 % (0-3) Neutrophils # (Auto) 8.3 x10^3uL (1.8-7.7) 6.2 x10^3uL (1.8-7.7) Lymphocytes # (Auto) 1.4 x10^3/uL (1.0-4.8) 1.0 x10^3/uL (1.0-4.8) Monocytes # (Auto) 0.7 x10^3/uL (0.0-1.1) 0.2 x10^3/uL (0.0-1.1) Eosinophils # (Auto) 0.1 x10^3/uL (0.0-0.7) 0.0 x10^3/uL (0.0-0.7) Basophils # (Auto) 0.0 x10^3/uL (0.0-0.2) 0.0 x10^3/uL (0.0-0.2) Prothrombin Time 13.8 SEC (11.7-14.0) Prothromb Time International Ratio 1.1 (0.8-1.1) Sodium Level 140 mmol/L (136-145) 144 mmol/L (136-145) Potassium Level 3.7 mmol/L (3.5-5.1) 3.9 mmol/L (3.5-5.1) Chloride Level 106 mmol/L (98-107) 110 mmol/L (98-107) Carbon Dioxide Level 22 mmol/L (21-32) 21 mmol/L (21-32) Anion Gap 12 (6-14) 13 (6-14) Blood Urea Nitrogen 15 mg/dL (7-20) 21 mg/dL (7-20) Creatinine 1.3 mg/dL (0.6-1.0) 1.0 mg/dL (0.6-1.0) Estimated GFR (Cockcroft-Gault) 38.8 52.6 BUN/Creatinine Ratio 12 (6-20) Glucose Level 109 mg/dL (70-99) 137 mg/dL (70-99) Lactic Acid Level 2.0 mmol/L (0.4-2.0) Calcium Level 8.8 mg/dL (8.5-10.1) 8.9 mg/dL (8.5-10.1) Magnesium Level 1.8 mg/dL (1.8-2.4) Total Bilirubin 0.8 mg/dL (0.2-1.0) Aspartate Amino Transf (AST/SGOT) 19 U/L (15-37) Alanine Aminotransferase (ALT/SGPT) 12 U/L (14-59) Alkaline Phosphatase 66 U/L (46-116) Creatine Kinase 134 U/L (26-192) Creatine Kinase MB (Mass) 1.2 ng/mL (0.0-3.6) Creatine Kinase MB Relative Index 0.9 % (0-4) Troponin I Quantitative 0.026 ng/mL (0.000-0.055) BQ-Wkf-T-Type Natriuretic Peptide 3701 pg/mL (0-449) Total Protein 6.0 g/dL (6.4-8.2) Albumin 2.3 g/dL (3.4-5.0) Albumin/Globulin Ratio 0.6 (1.0-1.7) Lipase 58 U/L (73-393) Thyroid Stimulating Hormone (TSH) 1.328 uIU/mL (0.358-3.74) Urine Collection Type U cath Urine Color Yellow Urine Clarity Clear Urine pH 5.5 Urine Specific [place] 1.015 Urine Protein Negative mg/dL (NEG-TRACE) Urine Glucose (UA) Negative mg/dL (NEG) Urine Ketones (Stick) Negative mg/dL (NEG) Urine Blood Negative (NEG) Urine Nitrite Negative (NEG) Urine Bilirubin Negative (NEG) Urine Urobilinogen Dipstick 0.2 mg/dL (0.2 mg/dL) Urine Leukocyte Esterase Negative (NEG) Urine RBC Occ /HPF (0-2) Urine WBC 1-4 /HPF (0-4) Urine Squamous Epithelial Cells Occ /LPF Urine Bacteria Few /HPF (0-FEW) Urine Hyaline Casts Few /HPF Urine Mucus Marked /LPF Urine Opiates Screen Pos (NEG) Urine Methadone Screen Neg (NEG) Urine Barbiturates Neg (NEG) Urine Phencyclidine Screen Neg (NEG) Urine Amphetamine/Methamphetamine Neg (NEG) Urine Benzodiazepines Screen Neg (NEG) Urine Cocaine Screen Neg (NEG) Urine Cannabinoids Screen Neg (NEG) Urine Ethyl Alcohol Neg (NEG) Review of Systems Review of Systems HArd of hearing hence unobtainable ROS Assessment and Plan Assessmemt and Plan Problems Medical Problems: (1) Compression fx, lumbar spine Status: Acute (2) Fall Status: Acute (3) Rash Status: Acute (4) Smoking addiction Status: Acute Comment Review of Relevant I have reviewed the following items lupe (where applicable) has been applied. Labs Laboratory Tests Test 05/19/18 11:33 05/19/18 11:48 05/20/18 04:45 White Blood Count 10.5 x10^3/uL (4.0-11.0) 7.3 x10^3/uL (4.0-11.0) Red Blood Count 4.48 x10^6/uL (3.50-5.40) 4.17 x10^6/uL (3.50-5.40) Hemoglobin 13.1 g/dL (12.0-15.5) 12.4 g/dL (12.0-15.5) Hematocrit 40.3 % (36.0-47.0) 37.6 % (36.0-47.0) Mean Corpuscular Volume 90 fL (79-100) 90 fL (79-100) Mean Corpuscular Hemoglobin 29 pg (25-35) 30 pg (25-35) Mean Corpuscular Hemoglobin Concent 33 g/dL (31-37) 33 g/dL (31-37) Red Cell Distribution Width 16.8 % (11.5-14.5) 17.1 % (11.5-14.5) Platelet Count 205 x10^3/uL (140-400) 184 x10^3/uL (140-400) Neutrophils (%) (Auto) 79 % (31-73) 84 % (31-73) Lymphocytes (%) (Auto) 13 % (24-48) 13 % (24-48) Monocytes (%) (Auto) 7 % (0-9) 2 % (0-9) Eosinophils (%) (Auto) 1 % (0-3) 0 % (0-3) Basophils (%) (Auto) 1 % (0-3) 0 % (0-3) Neutrophils # (Auto) 8.3 x10^3uL (1.8-7.7) 6.2 x10^3uL (1.8-7.7) Lymphocytes # (Auto) 1.4 x10^3/uL (1.0-4.8) 1.0 x10^3/uL (1.0-4.8) Monocytes # (Auto) 0.7 x10^3/uL (0.0-1.1) 0.2 x10^3/uL (0.0-1.1) Eosinophils # (Auto) 0.1 x10^3/uL (0.0-0.7) 0.0 x10^3/uL (0.0-0.7) Basophils # (Auto) 0.0 x10^3/uL (0.0-0.2) 0.0 x10^3/uL (0.0-0.2) Prothrombin Time 13.8 SEC (11.7-14.0) Prothromb Time International Ratio 1.1 (0.8-1.1) Sodium Level 140 mmol/L (136-145) 144 mmol/L (136-145) Potassium Level 3.7 mmol/L (3.5-5.1) 3.9 mmol/L (3.5-5.1) Chloride Level 106 mmol/L (98-107) 110 mmol/L (98-107) Carbon Dioxide Level 22 mmol/L (21-32) 21 mmol/L (21-32) Anion Gap 12 (6-14) 13 (6-14) Blood Urea Nitrogen 15 mg/dL (7-20) 21 mg/dL (7-20) Creatinine 1.3 mg/dL (0.6-1.0) 1.0 mg/dL (0.6-1.0) Estimated GFR (Cockcroft-Gault) 38.8 52.6 BUN/Creatinine Ratio 12 (6-20) Glucose Level 109 mg/dL (70-99) 137 mg/dL (70-99) Lactic Acid Level 2.0 mmol/L (0.4-2.0) Calcium Level 8.8 mg/dL (8.5-10.1) 8.9 mg/dL (8.5-10.1) Magnesium Level 1.8 mg/dL (1.8-2.4) Total Bilirubin 0.8 mg/dL (0.2-1.0) Aspartate Amino Transf (AST/SGOT) 19 U/L (15-37) Alanine Aminotransferase (ALT/SGPT) 12 U/L (14-59) Alkaline Phosphatase 66 U/L (46-116) Creatine Kinase 134 U/L (26-192) Creatine Kinase MB (Mass) 1.2 ng/mL (0.0-3.6) Creatine Kinase MB Relative Index 0.9 % (0-4) Troponin I Quantitative 0.026 ng/mL (0.000-0.055) JG-Swx-A-Type Natriuretic Peptide 3701 pg/mL (0-449) Total Protein 6.0 g/dL (6.4-8.2) Albumin 2.3 g/dL (3.4-5.0) Albumin/Globulin Ratio 0.6 (1.0-1.7) Lipase 58 U/L (73-393) Thyroid Stimulating Hormone (TSH) 1.328 uIU/mL (0.358-3.74) Urine Collection Type U cath Urine Color Yellow Urine Clarity Clear Urine pH 5.5 Urine Specific [place] 1.015 Urine Protein Negative mg/dL (NEG-TRACE) Urine Glucose (UA) Negative mg/dL (NEG) Urine Ketones (Stick) Negative mg/dL (NEG) Urine Blood Negative (NEG) Urine Nitrite Negative (NEG) Urine Bilirubin Negative (NEG) Urine Urobilinogen Dipstick 0.2 mg/dL (0.2 mg/dL) Urine Leukocyte Esterase Negative (NEG) Urine RBC Occ /HPF (0-2) Urine WBC 1-4 /HPF (0-4) Urine Squamous Epithelial Cells Occ /LPF Urine Bacteria Few /HPF (0-FEW) Urine Hyaline Casts Few /HPF Urine Mucus Marked /LPF Urine Opiates Screen Pos (NEG) Urine Methadone Screen Neg (NEG) Urine Barbiturates Neg (NEG) Urine Phencyclidine Screen Neg (NEG) Urine Amphetamine/Methamphetamine Neg (NEG) Urine Benzodiazepines Screen Neg (NEG) Urine Cocaine Screen Neg (NEG) Urine Cannabinoids Screen Neg (NEG) Urine Ethyl Alcohol Neg (NEG) Laboratory Tests Test 05/19/18 11:33 05/19/18 11:48 05/20/18 04:45 White Blood Count 10.5 x10^3/uL (4.0-11.0) 7.3 x10^3/uL (4.0-11.0) Red Blood Count 4.48 x10^6/uL (3.50-5.40) 4.17 x10^6/uL (3.50-5.40) Hemoglobin 13.1 g/dL (12.0-15.5) 12.4 g/dL (12.0-15.5) Hematocrit 40.3 % (36.0-47.0) 37.6 % (36.0-47.0) Mean Corpuscular Volume 90 fL (79-100) 90 fL (79-100) Mean Corpuscular Hemoglobin 29 pg (25-35) 30 pg (25-35) Mean Corpuscular Hemoglobin Concent 33 g/dL (31-37) 33 g/dL (31-37) Red Cell Distribution Width 16.8 % (11.5-14.5) 17.1 % (11.5-14.5) Platelet Count 205 x10^3/uL (140-400) 184 x10^3/uL (140-400) Neutrophils (%) (Auto) 79 % (31-73) 84 % (31-73) Lymphocytes (%) (Auto) 13 % (24-48) 13 % (24-48) Monocytes (%) (Auto) 7 % (0-9) 2 % (0-9) Eosinophils (%) (Auto) 1 % (0-3) 0 % (0-3) Basophils (%) (Auto) 1 % (0-3) 0 % (0-3) Neutrophils # (Auto) 8.3 x10^3uL (1.8-7.7) 6.2 x10^3uL (1.8-7.7) Lymphocytes # (Auto) 1.4 x10^3/uL (1.0-4.8) 1.0 x10^3/uL (1.0-4.8) Monocytes # (Auto) 0.7 x10^3/uL (0.0-1.1) 0.2 x10^3/uL (0.0-1.1) Eosinophils # (Auto) 0.1 x10^3/uL (0.0-0.7) 0.0 x10^3/uL (0.0-0.7) Basophils # (Auto) 0.0 x10^3/uL (0.0-0.2) 0.0 x10^3/uL (0.0-0.2) Prothrombin Time 13.8 SEC (11.7-14.0) Prothromb Time International Ratio 1.1 (0.8-1.1) Sodium Level 140 mmol/L (136-145) 144 mmol/L (136-145) Potassium Level 3.7 mmol/L (3.5-5.1) 3.9 mmol/L (3.5-5.1) Chloride Level 106 mmol/L (98-107) 110 mmol/L (98-107) Carbon Dioxide Level 22 mmol/L (21-32) 21 mmol/L (21-32) Anion Gap 12 (6-14) 13 (6-14) Blood Urea Nitrogen 15 mg/dL (7-20) 21 mg/dL (7-20) Creatinine 1.3 mg/dL (0.6-1.0) 1.0 mg/dL (0.6-1.0) Estimated GFR (Cockcroft-Gault) 38.8 52.6 BUN/Creatinine Ratio 12 (6-20) Glucose Level 109 mg/dL (70-99) 137 mg/dL (70-99) Lactic Acid Level 2.0 mmol/L (0.4-2.0) Calcium Level 8.8 mg/dL (8.5-10.1) 8.9 mg/dL (8.5-10.1) Magnesium Level 1.8 mg/dL (1.8-2.4) Total Bilirubin 0.8 mg/dL (0.2-1.0) Aspartate Amino Transf (AST/SGOT) 19 U/L (15-37) Alanine Aminotransferase (ALT/SGPT) 12 U/L (14-59) Alkaline Phosphatase 66 U/L (46-116) Creatine Kinase 134 U/L (26-192) Creatine Kinase MB (Mass) 1.2 ng/mL (0.0-3.6) Creatine Kinase MB Relative Index 0.9 % (0-4) Troponin I Quantitative 0.026 ng/mL (0.000-0.055) FQ-Jpm-Y-Type Natriuretic Peptide 3701 pg/mL (0-449) Total Protein 6.0 g/dL (6.4-8.2) Albumin 2.3 g/dL (3.4-5.0) Albumin/Globulin Ratio 0.6 (1.0-1.7) Lipase 58 U/L (73-393) Thyroid Stimulating Hormone (TSH) 1.328 uIU/mL (0.358-3.74) Urine Collection Type U cath Urine Color Yellow Urine Clarity Clear Urine pH 5.5 Urine Specific [place] 1.015 Urine Protein Negative mg/dL (NEG-TRACE) Urine Glucose (UA) Negative mg/dL (NEG) Urine Ketones (Stick) Negative mg/dL (NEG) Urine Blood Negative (NEG) Urine Nitrite Negative (NEG) Urine Bilirubin Negative (NEG) Urine Urobilinogen Dipstick 0.2 mg/dL (0.2 mg/dL) Urine Leukocyte Esterase Negative (NEG) Urine RBC Occ /HPF (0-2) Urine WBC 1-4 /HPF (0-4) Urine Squamous Epithelial Cells Occ /LPF Urine Bacteria Few /HPF (0-FEW) Urine Hyaline Casts Few /HPF Urine Mucus Marked /LPF Urine Opiates Screen Pos (NEG) Urine Methadone Screen Neg (NEG) Urine Barbiturates Neg (NEG) Urine Phencyclidine Screen Neg (NEG) Urine Amphetamine/Methamphetamine Neg (NEG) Urine Benzodiazepines Screen Neg (NEG) Urine Cocaine Screen Neg (NEG) Urine Cannabinoids Screen Neg (NEG) Urine Ethyl Alcohol Neg (NEG) Medications Current Medications Methylprednisolone Sodium Succinate (SOLU-Medrol 125MG VIAL) 125 mg 1X ONCE IV Last administered on 05/19/18at 11:59; Start 05/19/18 at 11:30; Stop 05/19/18 at 11:36; Status DC Sodium Chloride 1,000 ml @ 1,000 mls/hr 1X ONCE IV Last administered on 11:56; Start 05/19/18 at 11:30; Stop 05/19/18 at 12:29; Status DC Nicotine (Nicoderm Cq 21mg) 1 patch 1X STAT TD Last administered on 05/19/18 11:50; Start 05/19/18 at 11:29; Stop 05/19/18 at 11:36; Status DC Ondansetron HCl (Zofran) 4 mg PRN Q8HRS PRN IV NAUSEA/VOMITING; Start 05/19/18 at 14:30; Stop 05/20/18 at 14:29 Morphine Sulfate (Morphine Sulfate) 2 mg PRN Q2HR PRN IV PAIN; Start 05/19/18 at 14:30; Stop 05/20/18 at 14:29 Acetaminophen (Tylenol) 650 mg PRN Q4HRS PRN PO FEVER; Start 05/19/18 at 14:30 ; Stop 05/20/18 at 14:29 Aspirin (Ecotrin) 81 mg DAILY PO Last administered on 05/20/18 08:05; Start at 09:00 Carvedilol (Coreg) 6.25 mg BIDWMEALS PO Last administered on 05/20/18 08:06; Start 05/19/18 at 17:00 Cephalexin HCl (Keflex) 250 mg QID PO Last administered on 05/20/18 08:05; Start 05/19/18 at 17:00 Famotidine (Pepcid) 20 mg DAILY PO Last administered on 05/20/18 08:05; Start 05/20/18 at 09:00 Acetaminophen/ Hydrocodone Bitart (Lortab 5/325) 1 tab PRN Q4HRS PRN PO MODERATE PAIN Last administered on 05/20/18 09:54; Start 05/19/18 at 14:45 Losartan Potassium (Cozaar) 25 mg DAILY PO Last administered on 05/20/18 08:06 ; Start 05/20/18 at 09:00 Potassium Chloride (Klor-Con) 10 meq DAILY PO Last administered on 05/20/18 08 :05; Start 05/20/18 at 09:00 Nystatin (Nystop) 1 gonzalez BID TP Last administered on 05/20/18 08:06; Start at 21:00 Nicotine (Nicoderm Cq 21mg) 1 patch PRN DAILY PRN TD SMOKING CESSATION Last administered on 05/20/18at 08:07; Start 05/19/18 at 15:30 Methylprednisolone Acetate (DEPO-Medrol 40MG VIAL) 40 mg 1X ONCE IM Last administered on 05/19/18at 17:00; Start 05/19/18 at 17:00; Stop 05/19/18 at 17:01 ; Status DC Bupivacaine HCl (Sensorcaine-Mpf 0.25%) 10 ml 1X ONCE IJ Last administered on 05/19/18at 17:00; Start 05/19/18 at 17:00; Stop 05/19/18 at 17:01; Status DC Diclofenac Sodium (Voltaren) 1 gonzalez BID TP Last administered on 05/20/18at 08:06 ; Start 05/19/18 at 21:00 Celecoxib (CeleBREX) 100 mg BID PO Last administered on 05/20/18at 09:26; Start 05/20/18 at 10:00 Active Scripts Active Cephalexin 250 Mg Capsule 250 Mg PO QID 5 Days Hydrocodone-Apap 5-325 (Hydrocodone Bit/Acetaminophen) 1 Tab Tablet 1 Tab PO PRN Q4-6HRS PRN 5 Days Cozaar (Losartan Potassium) 25 Mg Tablet 25 Mg PO DAILY Reported Famotidine 20 Mg Tablet 20 Mg PO DAILY Aspir-Low (Aspirin) 81 Mg Tablet.dr 81 Mg PO DAILY Furosemide 40 Mg Tablet 40 Mg PO DAILY Coreg (Carvedilol) 6.25 Mg Tablet 6.25 Mg PO BIDWMEALS Potassium Chloride 10 Meq Capsule.er 10 Meq PO DAILY Vitals/I & O Vital Sign - Last 24 Hours 05/19/18 05/19/18 05/19/18 05/19/18 11:20 11:57 12:27 13:21 Temp 97.3 97.3 Pulse 84 86 84 86 Resp 20 18 16 16 B/P (MAP) 115/67 (83) Pulse Ox 99 98 96 96 O2 Delivery Room Air 05/19/18 05/19/18 05/19/18 05/19/18 13:51 14:21 16:20 16:47 Pulse 86 88 87 87 Resp 20 20 16 B/P (MAP) 124/83 Pulse Ox 97 97 98 05/19/18 05/19/18 05/19/18 05/19/18 16:47 17:05 19:00 20:00 Temp 97.8 97.8 Pulse 83 Resp 14 B/P (MAP) 113/54 (73) Pulse Ox 96 O2 Delivery Room Air Room Air Room Air Room Air 05/19/18 05/20/18 05/20/18 05/20/18 23:00 03:00 07:00 07:30 Temp 97.2 97.5 97.3 97.2 97.5 97.3 Pulse 74 71 69 Resp 14 16 18 B/P (MAP) 110/71 (84) 131/56 (81) 131/83 (99) Pulse Ox 95 96 98 O2 Delivery Room Air Room Air Room Air Room Air 05/20/18 05/20/18 05/20/18 05/20/18 08:06 08:06 09:54 10:43 Pulse 69 69 B/P (MAP) 131/83 131/83 O2 Delivery Room Air Room Air Intake and Output 05/19/18 05/19/18 05/20/18 14:59 22:59 06:59 Intake Total 1000 ml 0 ml 0 ml Output Total 120 ml Balance 1000 ml 0 ml -120 ml MELANI HICKS MD May 20, 2018 10:52
[2018-05-20 11:00] VITALS: BP 124/34
--- NOTE | 2018-05-20 12:53 | PDOC ---
PROGRESS NOTES Subjective Subjective She denies any knee or back pain. Objective Objective Vital Signs Date Time Temp Pulse Resp B/P (MAP) Pulse Ox O2 Delivery O2 Flow Rate FiO2 05/20/18 11:00 97.4 83 18 124/34 (64) 98 Room Air 97.4 Intake and Output 05/20/18 06:59 Intake Total 1000 ml Output Total 120 ml Balance 880 ml Intake Oral 0 ml IV Total 1000 ml Output Urine Total 120 ml Physical Exam Physical Exam She got up and walked with roller walker with wide based gait under supervision. Assessment Assessment Problems Medical Problems: (1) Compression fx, lumbar spine Status: Acute (2) Fall Status: Acute (3) Rash Status: Acute (4) Smoking addiction Status: Acute Plan Plan of Care I spoke to her son who lives with her and he feels comfortable to take her home when medically stable. Comment Review of Relevant I have reviewed the following items lupe (where applicable) has been applied. Labs Laboratory Tests Test 05/19/18 11:33 05/19/18 11:48 05/20/18 04:45 White Blood Count 10.5 x10^3/uL (4.0-11.0) 7.3 x10^3/uL (4.0-11.0) Red Blood Count 4.48 x10^6/uL (3.50-5.40) 4.17 x10^6/uL (3.50-5.40) Hemoglobin 13.1 g/dL (12.0-15.5) 12.4 g/dL (12.0-15.5) Hematocrit 40.3 % (36.0-47.0) 37.6 % (36.0-47.0) Mean Corpuscular Volume 90 fL (79-100) 90 fL (79-100) Mean Corpuscular Hemoglobin 29 pg (25-35) 30 pg (25-35) Mean Corpuscular Hemoglobin Concent 33 g/dL (31-37) 33 g/dL (31-37) Red Cell Distribution Width 16.8 % (11.5-14.5) 17.1 % (11.5-14.5) Platelet Count 205 x10^3/uL (140-400) 184 x10^3/uL (140-400) Neutrophils (%) (Auto) 79 % (31-73) 84 % (31-73) Lymphocytes (%) (Auto) 13 % (24-48) 13 % (24-48) Monocytes (%) (Auto) 7 % (0-9) 2 % (0-9) Eosinophils (%) (Auto) 1 % (0-3) 0 % (0-3) Basophils (%) (Auto) 1 % (0-3) 0 % (0-3) Neutrophils # (Auto) 8.3 x10^3uL (1.8-7.7) 6.2 x10^3uL (1.8-7.7) Lymphocytes # (Auto) 1.4 x10^3/uL (1.0-4.8) 1.0 x10^3/uL (1.0-4.8) Monocytes # (Auto) 0.7 x10^3/uL (0.0-1.1) 0.2 x10^3/uL (0.0-1.1) Eosinophils # (Auto) 0.1 x10^3/uL (0.0-0.7) 0.0 x10^3/uL (0.0-0.7) Basophils # (Auto) 0.0 x10^3/uL (0.0-0.2) 0.0 x10^3/uL (0.0-0.2) Prothrombin Time 13.8 SEC (11.7-14.0) Prothromb Time International Ratio 1.1 (0.8-1.1) Sodium Level 140 mmol/L (136-145) 144 mmol/L (136-145) Potassium Level 3.7 mmol/L (3.5-5.1) 3.9 mmol/L (3.5-5.1) Chloride Level 106 mmol/L (98-107) 110 mmol/L (98-107) Carbon Dioxide Level 22 mmol/L (21-32) 21 mmol/L (21-32) Anion Gap 12 (6-14) 13 (6-14) Blood Urea Nitrogen 15 mg/dL (7-20) 21 mg/dL (7-20) Creatinine 1.3 mg/dL (0.6-1.0) 1.0 mg/dL (0.6-1.0) Estimated GFR (Cockcroft-Gault) 38.8 52.6 BUN/Creatinine Ratio 12 (6-20) Glucose Level 109 mg/dL (70-99) 137 mg/dL (70-99) Lactic Acid Level 2.0 mmol/L (0.4-2.0) Calcium Level 8.8 mg/dL (8.5-10.1) 8.9 mg/dL (8.5-10.1) Magnesium Level 1.8 mg/dL (1.8-2.4) Total Bilirubin 0.8 mg/dL (0.2-1.0) Aspartate Amino Transf (AST/SGOT) 19 U/L (15-37) Alanine Aminotransferase (ALT/SGPT) 12 U/L (14-59) Alkaline Phosphatase 66 U/L (46-116) Creatine Kinase 134 U/L (26-192) Creatine Kinase MB (Mass) 1.2 ng/mL (0.0-3.6) Creatine Kinase MB Relative Index 0.9 % (0-4) Troponin I Quantitative 0.026 ng/mL (0.000-0.055) PI-Hcg-P-Type Natriuretic Peptide 3701 pg/mL (0-449) Total Protein 6.0 g/dL (6.4-8.2) Albumin 2.3 g/dL (3.4-5.0) Albumin/Globulin Ratio 0.6 (1.0-1.7) Lipase 58 U/L (73-393) Thyroid Stimulating Hormone (TSH) 1.328 uIU/mL (0.358-3.74) Urine Collection Type U cath Urine Color Yellow Urine Clarity Clear Urine pH 5.5 Urine Specific [place] 1.015 Urine Protein Negative mg/dL (NEG-TRACE) Urine Glucose (UA) Negative mg/dL (NEG) Urine Ketones (Stick) Negative mg/dL (NEG) Urine Blood Negative (NEG) Urine Nitrite Negative (NEG) Urine Bilirubin Negative (NEG) Urine Urobilinogen Dipstick 0.2 mg/dL (0.2 mg/dL) Urine Leukocyte Esterase Negative (NEG) Urine RBC Occ /HPF (0-2) Urine WBC 1-4 /HPF (0-4) Urine Squamous Epithelial Cells Occ /LPF Urine Bacteria Few /HPF (0-FEW) Urine Hyaline Casts Few /HPF Urine Mucus Marked /LPF Urine Opiates Screen Pos (NEG) Urine Methadone Screen Neg (NEG) Urine Barbiturates Neg (NEG) Urine Phencyclidine Screen Neg (NEG) Urine Amphetamine/Methamphetamine Neg (NEG) Urine Benzodiazepines Screen Neg (NEG) Urine Cocaine Screen Neg (NEG) Urine Cannabinoids Screen Neg (NEG) Urine Ethyl Alcohol Neg (NEG) Laboratory Tests Test 05/20/18 04:45 White Blood Count 7.3 x10^3/uL (4.0-11.0) Red Blood Count 4.17 x10^6/uL (3.50-5.40) Hemoglobin 12.4 g/dL (12.0-15.5) Hematocrit 37.6 % (36.0-47.0) Mean Corpuscular Volume 90 fL (79-100) Mean Corpuscular Hemoglobin 30 pg (25-35) Mean Corpuscular Hemoglobin Concent 33 g/dL (31-37) Red Cell Distribution Width 17.1 % (11.5-14.5) Platelet Count 184 x10^3/uL (140-400) Neutrophils (%) (Auto) 84 % (31-73) Lymphocytes (%) (Auto) 13 % (24-48) Monocytes (%) (Auto) 2 % (0-9) Eosinophils (%) (Auto) 0 % (0-3) Basophils (%) (Auto) 0 % (0-3) Neutrophils # (Auto) 6.2 x10^3uL (1.8-7.7) Lymphocytes # (Auto) 1.0 x10^3/uL (1.0-4.8) Monocytes # (Auto) 0.2 x10^3/uL (0.0-1.1) Eosinophils # (Auto) 0.0 x10^3/uL (0.0-0.7) Basophils # (Auto) 0.0 x10^3/uL (0.0-0.2) Sodium Level 144 mmol/L (136-145) Potassium Level 3.9 mmol/L (3.5-5.1) Chloride Level 110 mmol/L (98-107) Carbon Dioxide Level 21 mmol/L (21-32) Anion Gap 13 (6-14) Blood Urea Nitrogen 21 mg/dL (7-20) Creatinine 1.0 mg/dL (0.6-1.0) Estimated GFR (Cockcroft-Gault) 52.6 Glucose Level 137 mg/dL (70-99) Calcium Level 8.9 mg/dL (8.5-10.1) Microbiology 05/19/18 Blood Culture - Preliminary, Resulted NO GROWTH AFTER 1 DAY Medications Current Medications Methylprednisolone Sodium Succinate (SOLU-Medrol 125MG VIAL) 125 mg 1X ONCE IV Last administered on 05/19/18 11:59; Start 05/19/18 at 11:30; Stop 05/19/18 at 11:36; Status DC Sodium Chloride 1,000 ml @ 1,000 mls/hr 1X ONCE IV Last administered on at 11:56; Start 05/19/18 at 11:30; Stop 05/19/18 at 12:29; Status DC Nicotine (Nicoderm Cq 21mg) 1 patch 1X STAT TD Last administered on 05/19/18 11:50; Start 05/19/18 at 11:29; Stop 05/19/18 at 11:36; Status DC Ondansetron HCl (Zofran) 4 mg PRN Q8HRS PRN IV NAUSEA/VOMITING; Start 05/19/18 at 14:30; Stop 05/20/18 at 14:29 Morphine Sulfate (Morphine Sulfate) 2 mg PRN Q2HR PRN IV PAIN; Start 05/19/18 at 14:30; Stop 05/20/18 at 14:29 Acetaminophen (Tylenol) 650 mg PRN Q4HRS PRN PO FEVER; Start 05/19/18 at 14:30 ; Stop 05/20/18 at 14:29 Aspirin (Ecotrin) 81 mg DAILY PO Last administered on 05/20/18at 08:05; Start at 09:00 Carvedilol (Coreg) 6.25 mg BIDWMEALS PO Last administered on 05/20/18 08:06; Start 05/19/18 at 17:00 Cephalexin HCl (Keflex) 250 mg QID PO Last administered on 05/20/18 12:19; Start 05/19/18 at 17:00 Famotidine (Pepcid) 20 mg DAILY PO Last administered on 05/20/18at 08:05; Start 05/20/18 at 09:00 Acetaminophen/ Hydrocodone Bitart (Lortab 5/325) 1 tab PRN Q4HRS PRN PO MODERATE PAIN Last administered on 05/20/18 09:54; Start 05/19/18 at 14:45 Losartan Potassium (Cozaar) 25 mg DAILY PO Last administered on 05/20/18 08:06 ; Start 05/20/18 at 09:00 Potassium Chloride (Klor-Con) 10 meq DAILY PO Last administered on 05/20/18 08 :05; Start 05/20/18 at 09:00 Nystatin (Nystop) 1 gonzalez BID TP Last administered on 05/20/18 08:06; Start at 21:00 Nicotine (Nicoderm Cq 21mg) 1 patch PRN DAILY PRN TD SMOKING CESSATION Last administered on 05/20/18 08:07; Start 05/19/18 at 15:30 Methylprednisolone Acetate (DEPO-Medrol 40MG VIAL) 40 mg 1X ONCE IM Last administered on 05/19/18 17:00; Start 05/19/18 at 17:00; Stop 05/19/18 at 17:01 ; Status DC Bupivacaine HCl (Sensorcaine-Mpf 0.25%) 10 ml 1X ONCE IJ Last administered on 05/19/18 17:00; Start 05/19/18 at 17:00; Stop 05/19/18 at 17:01; Status DC Diclofenac Sodium (Voltaren) 1 gonzalez BID TP Last administered on 05/20/18 08:06 ; Start 05/19/18 at 21:00 Celecoxib (CeleBREX) 100 mg BID PO Last administered on 05/20/18 09:26; Start 05/20/18 at 10:00 Active Scripts Active Cephalexin 250 Mg Capsule 250 Mg PO QID 5 Days Hydrocodone-Apap 5-325 (Hydrocodone Bit/Acetaminophen) 1 Tab Tablet 1 Tab PO PRN Q4-6HRS PRN 5 Days Cozaar (Losartan Potassium) 25 Mg Tablet 25 Mg PO DAILY Reported Famotidine 20 Mg Tablet 20 Mg PO DAILY Aspir-Low (Aspirin) 81 Mg Tablet.dr 81 Mg PO DAILY Furosemide 40 Mg Tablet 40 Mg PO DAILY Coreg (Carvedilol) 6.25 Mg Tablet 6.25 Mg PO BIDWMEALS Potassium Chloride 10 Meq Capsule.er 10 Meq PO DAILY Vitals/I & O Vital Sign - Last 24 Hours 05/19/18 05/19/18 05/19/18 05/19/18 13:21 13:51 14:21 16:20 Pulse 86 86 88 87 Resp 16 20 20 16 Pulse Ox 96 97 97 98 05/19/18 05/19/18 05/19/18 05/19/18 16:47 16:47 17:05 19:00 Temp 97.8 97.8 Pulse 87 83 Resp 14 B/P (MAP) 124/83 113/54 (73) Pulse Ox 96 O2 Delivery Room Air Room Air Room Air 05/19/18 05/19/18 05/20/18 05/20/18 20:00 23:00 03:00 07:00 Temp 97.2 97.5 97.3 97.2 97.5 97.3 Pulse 74 71 69 Resp 14 16 18 B/P (MAP) 110/71 (84) 131/56 (81) 131/83 (99) Pulse Ox 95 96 98 O2 Delivery Room Air Room Air Room Air Room Air 05/20/18 05/20/18 05/20/18 05/20/18 07:30 08:06 08:06 09:54 Pulse 69 69 B/P (MAP) 131/83 131/83 O2 Delivery Room Air Room Air 05/20/18 05/20/18 10:43 11:00 Temp 97.4 97.4 Pulse 83 Resp 18 B/P (MAP) 124/34 (64) Pulse Ox 98 O2 Delivery Room Air Room Air Intake and Output 05/19/18 05/19/18 05/20/18 14:59 22:59 06:59 Intake Total 1000 ml 0 ml 0 ml Output Total 120 ml Balance 1000 ml 0 ml -120 ml QUYEN ADAN MD May 20, 2018 12:53
--- NOTE | 2018-05-20 13:28 | NUR ---
SW following for discharge planning. Discussed with RN, [facility]. Anne with [facility] will meet with pt. SW will continue to follow.
[2018-05-20 15:00] VITALS: BP 125/68
--- NOTE | 2018-05-20 15:58 | NUR ---
Wound Care Wound care consult for rash. Pt has red, peeling, dry rash from upper thighs to top of shoulders, worse on posterior side and in groin. Cleansed area with lotion cleanser and applied generous amount of lotion mixed with nystatin powder. Dermatology will follow up tomorrow to assess and treat. No open wounds noted. WC will continue to follow for possible changes.
[2018-05-20 19:29] VITALS: BP 118/53
[2018-05-20 22:57] VITALS: BP 116/72
[2018-05-21] MEDS: HYDROcodone/APAP 5/325MG 1 TAB TABLET PO PRN ×3 (00:50→09:57)
--- NOTE | 2018-05-21 03:06 | NUR ---
Pt has open to air wound on right sacrum. Pictures taken, refer to wound assessment. Barrier creams applied. Pt educated on turning every two hours, off weight. Will reassess incontinence frequently. P500 bed ordered. Will continue to monitor.
[2018-05-21 03:10] VITALS: BP 131/76
[2018-05-21 07:00] VITALS: BP 107/68
[2018-05-21] MEDS: ASPIRIN ENTERIC COATED 81 MG TABLET.DR. PO SCH (08:00)
[2018-05-21] MEDS: FAMOTIDINE 20 MG TABLET. PO SCH (08:01)
[2018-05-21] MEDS: LOSARTAN POTASSIUM 25 MG TABLET. PO SCH (08:01)
[2018-05-21] MEDS: POTASSIUM CHLORIDE 10 MEQ TABLET.ER. PO SCH (08:01)
[2018-05-21] MEDS: CEPHALEXIN 250 MG CAPSULE. PO SCH ×3 (08:01→16:47)
[2018-05-21] MEDS: CARVEDILOL 6.25 MG TABLET. PO SCH ×2 (08:02→16:48)
[2018-05-21] MEDS ORDERED: NYST60PO TP (08:57)
--- NOTE | 2018-05-21 09:13 | PDOC ---
PROGRESS NOTES Subjective Subjective She admits pain right knee joint. Objective Objective Vital Signs Date Time Temp Pulse Resp B/P (MAP) Pulse Ox O2 Delivery O2 Flow Rate FiO2 05/21/18 08:02 75 107/68 05/21/18 08:00 Room Air 05/21/18 07:00 97.4 18 96 97.4 Intake and Output 05/21/18 07:00 Intake Total 870 ml Balance 870 ml Intake Oral 870 ml # Voids 5 # Bowel Movements 7 Physical Exam Physical Exam She is alert,supine in bed and she continues with crepitus on ROM of her knee joints with mild knee joint effusion and some stiffness of her knees but she can move right lower extremity actively. She has been walking to bathroom. Assessment Assessment Problems Medical Problems: (1) Compression fx, lumbar spine Status: Acute (2) Fall Status: Acute (3) Rash Status: Acute (4) Smoking addiction Status: Acute Plan Plan of Care Waiting for dermatology consult. To consider hinge knee brace if pain in her right knee is interfering with her mobility. Comment Review of Relevant I have reviewed the following items lupe (where applicable) has been applied. Labs Laboratory Tests Test 05/19/18 11:33 05/19/18 11:48 05/20/18 04:45 White Blood Count 10.5 x10^3/uL (4.0-11.0) 7.3 x10^3/uL (4.0-11.0) Red Blood Count 4.48 x10^6/uL (3.50-5.40) 4.17 x10^6/uL (3.50-5.40) Hemoglobin 13.1 g/dL (12.0-15.5) 12.4 g/dL (12.0-15.5) Hematocrit 40.3 % (36.0-47.0) 37.6 % (36.0-47.0) Mean Corpuscular Volume 90 fL (79-100) 90 fL (79-100) Mean Corpuscular Hemoglobin 29 pg (25-35) 30 pg (25-35) Mean Corpuscular Hemoglobin Concent 33 g/dL (31-37) 33 g/dL (31-37) Red Cell Distribution Width 16.8 % (11.5-14.5) 17.1 % (11.5-14.5) Platelet Count 205 x10^3/uL (140-400) 184 x10^3/uL (140-400) Neutrophils (%) (Auto) 79 % (31-73) 84 % (31-73) Lymphocytes (%) (Auto) 13 % (24-48) 13 % (24-48) Monocytes (%) (Auto) 7 % (0-9) 2 % (0-9) Eosinophils (%) (Auto) 1 % (0-3) 0 % (0-3) Basophils (%) (Auto) 1 % (0-3) 0 % (0-3) Neutrophils # (Auto) 8.3 x10^3uL (1.8-7.7) 6.2 x10^3uL (1.8-7.7) Lymphocytes # (Auto) 1.4 x10^3/uL (1.0-4.8) 1.0 x10^3/uL (1.0-4.8) Monocytes # (Auto) 0.7 x10^3/uL (0.0-1.1) 0.2 x10^3/uL (0.0-1.1) Eosinophils # (Auto) 0.1 x10^3/uL (0.0-0.7) 0.0 x10^3/uL (0.0-0.7) Basophils # (Auto) 0.0 x10^3/uL (0.0-0.2) 0.0 x10^3/uL (0.0-0.2) Prothrombin Time 13.8 SEC (11.7-14.0) Prothromb Time International Ratio 1.1 (0.8-1.1) Sodium Level 140 mmol/L (136-145) 144 mmol/L (136-145) Potassium Level 3.7 mmol/L (3.5-5.1) 3.9 mmol/L (3.5-5.1) Chloride Level 106 mmol/L (98-107) 110 mmol/L (98-107) Carbon Dioxide Level 22 mmol/L (21-32) 21 mmol/L (21-32) Anion Gap 12 (6-14) 13 (6-14) Blood Urea Nitrogen 15 mg/dL (7-20) 21 mg/dL (7-20) Creatinine 1.3 mg/dL (0.6-1.0) 1.0 mg/dL (0.6-1.0) Estimated GFR (Cockcroft-Gault) 38.8 52.6 BUN/Creatinine Ratio 12 (6-20) Glucose Level 109 mg/dL (70-99) 137 mg/dL (70-99) Lactic Acid Level 2.0 mmol/L (0.4-2.0) Calcium Level 8.8 mg/dL (8.5-10.1) 8.9 mg/dL (8.5-10.1) Magnesium Level 1.8 mg/dL (1.8-2.4) Total Bilirubin 0.8 mg/dL (0.2-1.0) Aspartate Amino Transf (AST/SGOT) 19 U/L (15-37) Alanine Aminotransferase (ALT/SGPT) 12 U/L (14-59) Alkaline Phosphatase 66 U/L (46-116) Creatine Kinase 134 U/L (26-192) Creatine Kinase MB (Mass) 1.2 ng/mL (0.0-3.6) Creatine Kinase MB Relative Index 0.9 % (0-4) Troponin I Quantitative 0.026 ng/mL (0.000-0.055) AU-Qjs-S-Type Natriuretic Peptide 3701 pg/mL (0-449) Total Protein 6.0 g/dL (6.4-8.2) Albumin 2.3 g/dL (3.4-5.0) Albumin/Globulin Ratio 0.6 (1.0-1.7) Lipase 58 U/L (73-393) Thyroid Stimulating Hormone (TSH) 1.328 uIU/mL (0.358-3.74) Urine Collection Type U cath Urine Color Yellow Urine Clarity Clear Urine pH 5.5 Urine Specific [place] 1.015 Urine Protein Negative mg/dL (NEG-TRACE) Urine Glucose (UA) Negative mg/dL (NEG) Urine Ketones (Stick) Negative mg/dL (NEG) Urine Blood Negative (NEG) Urine Nitrite Negative (NEG) Urine Bilirubin Negative (NEG) Urine Urobilinogen Dipstick 0.2 mg/dL (0.2 mg/dL) Urine Leukocyte Esterase Negative (NEG) Urine RBC Occ /HPF (0-2) Urine WBC 1-4 /HPF (0-4) Urine Squamous Epithelial Cells Occ /LPF Urine Bacteria Few /HPF (0-FEW) Urine Hyaline Casts Few /HPF Urine Mucus Marked /LPF Urine Opiates Screen Pos (NEG) Urine Methadone Screen Neg (NEG) Urine Barbiturates Neg (NEG) Urine Phencyclidine Screen Neg (NEG) Urine Amphetamine/Methamphetamine Neg (NEG) Urine Benzodiazepines Screen Neg (NEG) Urine Cocaine Screen Neg (NEG) Urine Cannabinoids Screen Neg (NEG) Urine Ethyl Alcohol Neg (NEG) 25-Hydroxy Vitamin D Total 48.3 ng/mL (30-100) Microbiology 05/19/18 Blood Culture - Preliminary, Resulted NO GROWTH AFTER 1 DAY Medications Current Medications Methylprednisolone Sodium Succinate (SOLU-Medrol 125MG VIAL) 125 mg 1X ONCE IV Last administered on 05/19/18at 11:59; Start 05/19/18 at 11:30; Stop 05/19/18 at 11:36; Status DC Sodium Chloride 1,000 ml @ 1,000 mls/hr 1X ONCE IV Last administered on at 11:56; Start 05/19/18 at 11:30; Stop 05/19/18 at 12:29; Status DC Nicotine (Nicoderm Cq 21mg) 1 patch 1X STAT TD Last administered on 05/19/18at 11:50; Start 05/19/18 at 11:29; Stop 05/19/18 at 11:36; Status DC Ondansetron HCl (Zofran) 4 mg PRN Q8HRS PRN IV NAUSEA/VOMITING; Start 05/19/18 at 14:30; Stop 05/20/18 at 14:29; Status DC Morphine Sulfate (Morphine Sulfate) 2 mg PRN Q2HR PRN IV PAIN; Start 05/19/18 at 14:30; Stop 05/20/18 at 14:29; Status DC Acetaminophen (Tylenol) 650 mg PRN Q4HRS PRN PO FEVER; Start 05/19/18 at 14:30 ; Stop 05/20/18 at 14:29; Status DC Aspirin (Ecotrin) 81 mg DAILY PO Last administered on 05/21/18at 08:00; Start at 09:00 Carvedilol (Coreg) 6.25 mg BIDWMEALS PO Last administered on 05/21/18at 08:02; Start 05/19/18 at 17:00 Cephalexin HCl (Keflex) 250 mg QID PO Last administered on 05/21/18 08:01; Start 05/19/18 at 17:00 Famotidine (Pepcid) 20 mg DAILY PO Last administered on 05/21/18 08:01; Start 05/20/18 at 09:00 Acetaminophen/ Hydrocodone Bitart (Lortab 5/325) 1 tab PRN Q4HRS PRN PO MODERATE PAIN Last administered on 05/21/18 06:08; Start 05/19/18 at 14:45 Losartan Potassium (Cozaar) 25 mg DAILY PO Last administered on 05/21/18 08:01 ; Start 05/20/18 at 09:00 Potassium Chloride (Klor-Con) 10 meq DAILY PO Last administered on 05/21/18 08 :01; Start 05/20/18 at 09:00 Nystatin (Nystop) 1 bret BID TP Last administered on 05/20/18 21:17; Start at 21:00 Nicotine (Nicoderm Cq 21mg) 1 patch PRN DAILY PRN TD SMOKING CESSATION Last administered on 05/20/18 08:07; Start 05/19/18 at 15:30 Methylprednisolone Acetate (DEPO-Medrol 40MG VIAL) 40 mg 1X ONCE IM Last administered on 05/19/18 17:00; Start 05/19/18 at 17:00; Stop 05/19/18 at 17:01 ; Status DC Bupivacaine HCl (Sensorcaine-Mpf 0.25%) 10 ml 1X ONCE IJ Last administered on 05/19/18 17:00; Start 05/19/18 at 17:00; Stop 05/19/18 at 17:01; Status DC Diclofenac Sodium (Voltaren) 1 bret BID TP Last administered on 05/20/18 21:19 ; Start 05/19/18 at 21:00 Celecoxib (CeleBREX) 100 mg BID PO Last administered on 05/20/18 09:26; Start 05/20/18 at 10:00; Stop 05/20/18 at 12:49; Status DC Active Scripts Active Nystop (Nystatin) 60 Gm Powder 1 Bret TP BID MDD 1 Cephalexin 250 Mg Capsule 250 Mg PO QID 5 Days Hydrocodone-Apap 5-325 (Hydrocodone Bit/Acetaminophen) 1 Tab Tablet 1 Tab PO PRN Q4-6HRS PRN 5 Days Cozaar (Losartan Potassium) 25 Mg Tablet 25 Mg PO DAILY Reported Famotidine 20 Mg Tablet 20 Mg PO DAILY Aspir-Low (Aspirin) 81 Mg Tablet.dr 81 Mg PO DAILY Furosemide 40 Mg Tablet 40 Mg PO DAILY Coreg (Carvedilol) 6.25 Mg Tablet 6.25 Mg PO BIDWMEALS Potassium Chloride 10 Meq Capsule.er 10 Meq PO DAILY Vitals/I & O Vital Sign - Last 24 Hours 05/20/18 05/20/18 05/20/18 05/20/18 09:54 11:00 15:00 15:46 Temp 97.4 97.5 97.4 97.5 Pulse 83 75 75 Resp 18 18 B/P (MAP) 124/34 (64) 125/68 (87) 125/68 Pulse Ox 98 100 O2 Delivery Room Air Room Air Room Air 05/20/18 05/20/18 05/20/18 05/21/18 19:29 20:30 22:57 00:50 Temp 97.4 97.9 97.4 97.9 Pulse 75 75 Resp 18 20 B/P (MAP) 118/53 (74) 116/72 (87) Pulse Ox 97 95 O2 Delivery Room Air Room Air Room Air Room Air 05/21/18 05/21/18 05/21/18 05/21/18 03:10 06:08 07:00 07:08 Temp 97.4 97.4 97.4 97.4 Pulse 73 75 Resp 20 18 B/P (MAP) 131/76 (94) 107/68 (81) Pulse Ox 96 96 O2 Delivery Room Air Room Air Room Air Room Air 05/21/18 05/21/18 05/21/18 08:00 08:01 08:02 Pulse 75 75 B/P (MAP) 107/68 107/68 O2 Delivery Room Air Intake and Output 05/20/18 05/20/18 05/21/18 15:00 23:00 07:00 Intake Total 325 ml 245 ml 300 ml Balance 325 ml 245 ml 300 ml Nutrition Consultation Dietary Evaluation: Recommendations by RD: Increase Calorie Intake, Protein supplementation Comments: magic cup bid ensure pudding tid Expected Outcomes/Goals: to meet > 75% est nutr needs Malnutrition Findings: Body Fat Depletion (Non Severe: Mild Depletion Weight Status: Overweight QUYEN ADAN MD May 21, 2018 09:13
[2018-05-21] MEDS: DICLOFENAC SODIUM 1% TOPICAL GEL 100GM TUBE. TP SCH (09:54)
[2018-05-21] MEDS: NYSTATIN TOPICAL POWDER 15GM BOTTLE. TP SCH (09:54)
--- NOTE | 2018-05-21 10:07 | NUR ---
SW following. Discussed with RN. Pt has discharge orders in. GIBSON advised Chel Rodríguez RN. Cathi will fax discharge paperwork. No further SW needs.
[2018-05-21 11:00] VITALS: BP 118/61
--- NOTE | 2018-05-21 11:16 | PDOC3 ---
Discharge Summary Visit Information Date of Admission: May 19, 2018 Date of Discharge: May 21, 2018 Admitting Diagnosis Comment: fall, back pain, right knee pain s/p injections -better eryhtematous diffuse rash to trunk and groin - CKD3 severe malnutrition, OSteoporosis, highly likely\\ NOrmla VIt D FULL CODE Final Diagnosis Problems Medical Problems: (1) Compression fx, lumbar spine Status: Acute (2) Fall Status: Acute (3) Rash Status: Acute (4) Smoking addiction Status: Acute Brief Hospital Course Allergies Allergies Coded Allergies Type Severity Reaction Last Updated Verified No Known Drug Allergies 08/21/15 No Vital Signs Vital Signs Date Time Temp Pulse Resp B/P (MAP) Pulse Ox O2 Delivery O2 Flow Rate FiO2 05/21/18 11:00 16 Room Air 05/21/18 08:02 75 107/68 05/21/18 07:00 97.4 96 97.4 Lab Results Laboratory Tests Test 05/19/18 11:33 05/19/18 11:48 05/20/18 04:45 White Blood Count 10.5 x10^3/uL (4.0-11.0) 7.3 x10^3/uL (4.0-11.0) Red Blood Count 4.48 x10^6/uL (3.50-5.40) 4.17 x10^6/uL (3.50-5.40) Hemoglobin 13.1 g/dL (12.0-15.5) 12.4 g/dL (12.0-15.5) Hematocrit 40.3 % (36.0-47.0) 37.6 % (36.0-47.0) Mean Corpuscular Volume 90 fL (79-100) 90 fL (79-100) Mean Corpuscular Hemoglobin 29 pg (25-35) 30 pg (25-35) Mean Corpuscular Hemoglobin Concent 33 g/dL (31-37) 33 g/dL (31-37) Red Cell Distribution Width 16.8 % (11.5-14.5) 17.1 % (11.5-14.5) Platelet Count 205 x10^3/uL (140-400) 184 x10^3/uL (140-400) Neutrophils (%) (Auto) 79 % (31-73) 84 % (31-73) Lymphocytes (%) (Auto) 13 % (24-48) 13 % (24-48) Monocytes (%) (Auto) 7 % (0-9) 2 % (0-9) Eosinophils (%) (Auto) 1 % (0-3) 0 % (0-3) Basophils (%) (Auto) 1 % (0-3) 0 % (0-3) Neutrophils # (Auto) 8.3 x10^3uL (1.8-7.7) 6.2 x10^3uL (1.8-7.7) Lymphocytes # (Auto) 1.4 x10^3/uL (1.0-4.8) 1.0 x10^3/uL (1.0-4.8) Monocytes # (Auto) 0.7 x10^3/uL (0.0-1.1) 0.2 x10^3/uL (0.0-1.1) Eosinophils # (Auto) 0.1 x10^3/uL (0.0-0.7) 0.0 x10^3/uL (0.0-0.7) Basophils # (Auto) 0.0 x10^3/uL (0.0-0.2) 0.0 x10^3/uL (0.0-0.2) Prothrombin Time 13.8 SEC (11.7-14.0) Prothromb Time International Ratio 1.1 (0.8-1.1) Sodium Level 140 mmol/L (136-145) 144 mmol/L (136-145) Potassium Level 3.7 mmol/L (3.5-5.1) 3.9 mmol/L (3.5-5.1) Chloride Level 106 mmol/L (98-107) 110 mmol/L (98-107) Carbon Dioxide Level 22 mmol/L (21-32) 21 mmol/L (21-32) Anion Gap 12 (6-14) 13 (6-14) Blood Urea Nitrogen 15 mg/dL (7-20) 21 mg/dL (7-20) Creatinine 1.3 mg/dL (0.6-1.0) 1.0 mg/dL (0.6-1.0) Estimated GFR (Cockcroft-Gault) 38.8 52.6 BUN/Creatinine Ratio 12 (6-20) Glucose Level 109 mg/dL (70-99) 137 mg/dL (70-99) Lactic Acid Level 2.0 mmol/L (0.4-2.0) Calcium Level 8.8 mg/dL (8.5-10.1) 8.9 mg/dL (8.5-10.1) Magnesium Level 1.8 mg/dL (1.8-2.4) Total Bilirubin 0.8 mg/dL (0.2-1.0) Aspartate Amino Transf (AST/SGOT) 19 U/L (15-37) Alanine Aminotransferase (ALT/SGPT) 12 U/L (14-59) Alkaline Phosphatase 66 U/L (46-116) Creatine Kinase 134 U/L (26-192) Creatine Kinase MB (Mass) 1.2 ng/mL (0.0-3.6) Creatine Kinase MB Relative Index 0.9 % (0-4) Troponin I Quantitative 0.026 ng/mL (0.000-0.055) CC-Ive-A-Type Natriuretic Peptide 3701 pg/mL (0-449) Total Protein 6.0 g/dL (6.4-8.2) Albumin 2.3 g/dL (3.4-5.0) Albumin/Globulin Ratio 0.6 (1.0-1.7) Lipase 58 U/L (73-393) Thyroid Stimulating Hormone (TSH) 1.328 uIU/mL (0.358-3.74) Urine Collection Type U cath Urine Color Yellow Urine Clarity Clear Urine pH 5.5 Urine Specific Cartwright 1.015 Urine Protein Negative mg/dL (NEG-TRACE) Urine Glucose (UA) Negative mg/dL (NEG) Urine Ketones (Stick) Negative mg/dL (NEG) Urine Blood Negative (NEG) Urine Nitrite Negative (NEG) Urine Bilirubin Negative (NEG) Urine Urobilinogen Dipstick 0.2 mg/dL (0.2 mg/dL) Urine Leukocyte Esterase Negative (NEG) Urine RBC Occ /HPF (0-2) Urine WBC 1-4 /HPF (0-4) Urine Squamous Epithelial Cells Occ /LPF Urine Bacteria Few /HPF (0-FEW) Urine Hyaline Casts Few /HPF Urine Mucus Marked /LPF Urine Opiates Screen Pos (NEG) Urine Methadone Screen Neg (NEG) Urine Barbiturates Neg (NEG) Urine Phencyclidine Screen Neg (NEG) Urine Amphetamine/Methamphetamine Neg (NEG) Urine Benzodiazepines Screen Neg (NEG) Urine Cocaine Screen Neg (NEG) Urine Cannabinoids Screen Neg (NEG) Urine Ethyl Alcohol Neg (NEG) 25-Hydroxy Vitamin D Total 48.3 ng/mL (30-100) Brief Hospital Course Ms. Alonso is a 88 old female who is good ADLs for age, lives alone at home but sons are nearby. Admitted because for a fall and severe osteoarthritis of the knee that was significant BUTr better after injections by physiatry. Although she has old compression fractures of her thoracic spine, she is not complaining of back pain. Consulted physiatry, PT OT also has cleared for home independent with the sons nearby Is not needing any pain medicines. Full code. No no change in meds Physiatry preferred not to start Celebrex given some CK D element seen and examined Dc < 30 Discharge Information Condition at Discharge: Improved, Stable Disposition/Orders: D/C to Home Scheduled Aspirin (Aspir-Low) 81 Mg Tablet.dr, 81 MG PO DAILY for heart health, (Reported) Entered as Reported by: OSBALDO STROUD on 04/12/181258 Last Action: Continued on 05/19/181437 by TATYANA HAQUE Carvedilol (Coreg ) 6.25 Mg Tablet, 6.25 MG PO BIDWMEALS for CARDIAC, ( Reported) Entered as Reported by: OSBALDO STROUD on 04/12/181258 Last Action: Continued on 05/19/181437 by TATYANA HAQUE Cephalexin (Cephalexin) 250 Mg Capsule, 250 MG PO QID for uti for 5 Days, #20 Prescribed by: GE ESPINOZA MD on 04/15/18 1236 Last Action: Continued on 05/19/181437 by TATYANA HAQUE Famotidine (Famotidine) 20 Mg Tablet, 20 MG PO DAILY for acid reflux, (Reported) Entered as Reported by: OSBALDO STROUD on 04/12/181258 Last Action: Continued on 05/19/181437 by TATYANA HAQUE Furosemide (Furosemide) 40 Mg Tablet, 40 MG PO DAILY for diuretic, (Reported) Entered as Reported by: OSBALDO STROUD on 04/12/181258 Last Action: HELD on 05/19/181437 by TATYANA HAQUE Losartan Potassium (Cozaar ) 25 Mg Tablet, 25 MG PO DAILY, #30 Prescribed by: JESUS MILLAN MD on 01/28/16 1415 Last Action: Continued on 05/19/181437 by TATYANA HAQUE Nystatin (Nystop) 60 Gm Powder, 1 MI TP BID for folds MDD 1, #1 Prescribed by: MELANI HICKS on 05/21/18 0857 Potassium Chloride (Potassium Chloride) 10 Meq Capsule.er, 10 MEQ PO DAILY, ( Reported) Entered as Reported by: Sun Fernandez on 01/23/162120 Last Action: Continued on 05/19/181437 by TATYANA HAQUE Scheduled PRN Hydrocodone Bit/Acetaminophen (Hydrocodone-Apap 5-325 ) 1 Tab Tablet, 1 TAB PO PRN Q4-6HRS PRN for PAIN for 5 Days, #20 Ref 0 Prescribed by: GE ESPINOZA MD on 04/15/18 1235 Last Action: Continued on 05/19/181437 by MELANI BECERRA MD May 21, 2018 11:16
[2018-05-21 15:00] VITALS: BP 142/81
[2018-05-21 16:48] VITALS: BP 142/81
--- NOTE | 2018-05-21 16:52 | SNU/HH DC ---
DISCHARGE WITH HOME HEALTH DISCHARGE INFORMATION: Discharge Date: May 21, 2018 Final Diagnosis: Problems Medical Problems: (1) Compression fx, lumbar spine Status: Acute (2) Fall Status: Acute (3) Rash Status: Acute (4) Smoking addiction Status: Acute Condition on Discharge: Stable CODE STATUS: Code Status: Full HOME HEALTH: Face to Face: I certify this patient is under my care and that I, or a nurse practitioner or physician's financial legal assistant working with me, had a face to face encounter that meets the physician face to face encounter requirements with this patient on []. 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 For: Community Resources Pt Meets Homebound Status: Unsteady balance w/ amb, POST DISCHARGE ORDERS: Activity Instructions for Disc: Activity as tolerated Weight Bearing Status after Di: As tolerated DIET AFTER DISCHARGE: Cardiac Wound/Incision Care: Change dressing CHECKS AFTER DISCHARGE: Checks after discharge: Check blood press - daily TREATMENT/EQUIPMENT ORDERS: Adaptive Equipment Issued: None CERTIFICATION STATEMENT: Certification Statement: Certification Statement: Based on the above finding, I certify that this patient is confined to the home and needs intermittent longterm care, physical therapy and/or speech therapy, or continues to need occupational therapy.~ This patient is under my care, and I have initiated the establishment of the plan of care.~ This patient will be followed by myself or a community physician who will periodically review the plan of care. Home Meds Active Scripts Nystatin (NYSTOP) 60 Gm Powder, 1 MI TP BID for folds MDD 1, #1 MISC Prov:MELANI HICKS MD 05/21/18 Cephalexin (CEPHALEXIN) 250 Mg Capsule, 250 MG PO QID for uti for 5 Days, #20 CAP Prov:GE ESPINOZA MD 04/15/18 Hydrocodone Bit/Acetaminophen (HYDROCODONE-APAP 5-325 ) 1 Tab Tablet, 1 TAB PO PRN Q4-6HRS PRN for PAIN for 5 Days, #20 TAB 0 Refills Prov:GE ESPINOZA MD 04/15/18 Losartan Potassium (COZAAR ) 25 Mg Tablet, 25 MG PO DAILY, #30 TAB Prov:JESUS MILLAN MD 01/28/16 Reported Medications Famotidine (FAMOTIDINE) 20 Mg Tablet, 20 MG PO DAILY for acid reflux, TAB 04/12/18 Aspirin (ASPIR-LOW) 81 Mg Tablet.dr, 81 MG PO DAILY for heart health, TAB.SR 04/12/18 Furosemide (FUROSEMIDE) 40 Mg Tablet, 40 MG PO DAILY for diuretic, TAB 04/12/18 Carvedilol (COREG ) 6.25 Mg Tablet, 6.25 MG PO BIDWMEALS for CARDIAC, TAB 04/12/18 Potassium Chloride (POTASSIUM CHLORIDE) 10 Meq Capsule.er, 10 MEQ PO DAILY, TAB.SR 01/23/16 MELANI HICKS MD May 21, 2018 16:52
--- NOTE | 2018-05-21 16:54 | PDOC ---
SUBJECTIVE Subjective actually, her family were complaining more than the patient. OBJECTIVE Vital Signs Vital Signs Date Time Temp Pulse Resp B/P (MAP) Pulse Ox O2 Delivery O2 Flow Rate FiO2 05/21/18 15:00 97.4 75 18 142/81 (101) 95 Room Air 97.4 05/21/18 11:00 97.4 81 20 118/61 (80) 97 Room Air 97.4 05/21/18 11:00 16 Room Air 05/21/18 09:57 16 Room Air 05/21/18 08:02 75 107/68 05/21/18 08:01 75 107/68 05/21/18 08:00 Room Air 05/21/18 07:00 97.4 75 18 107/68 (81) 96 Room Air 97.4 05/21/18 06:08 Room Air 05/21/18 03:10 97.4 73 20 131/76 (94) 96 Room Air 97.4 05/21/18 00:50 Room Air 05/20/18 22:57 97.9 75 20 116/72 (87) 95 Room Air 97.9 05/20/18 20:30 Room Air 05/20/18 19:29 97.4 75 18 118/53 (74) 97 Room Air 97.4 I & O Intake and Output 05/21/18 06:59 Intake Total 870 ml Balance 870 ml Intake Oral 870 ml # Voids 5 # Bowel Movements 7 PHYSICAL EXAM Physical Exam face lesions of indeterminate significance right cheek (puckered). Some worrisome macular pigmented lesion upper left chest. Patchy faint pink erythema abdomen. significant erythema perineum and medial thighs with vulvar swelling. significant erythema medial buttocks. Significant desquamation of portions of posterior torso and legs. ASSESSMENT/PLAN Assessment/Plan Reviewed history and labs. Suspect patient had a "diaper rash". This may not have been adequately addressed. The intense inflammatory process spread (as bad rashes often do). (an "id" reaction). consider addressing lesions on face and chest at a future time.\\ I do not think that biopsy at this time will be helpful diagnostically. Drug rash always possible but the lack of generalized rash goes against that. will order up 1% HC cream. mix with Eucerin cream or equivalent and apply to entire affected skin. On severely involved perineal skin apply (over it) Nystatin cream + Calmoseptine ointment. Do this twice a day. Nutrition Consultation Dietary Evaluation: Recommendations by RD: Increase Calorie Intake, Protein supplementation Comments: magic cup bid ensure pudding tid Expected Outcomes/Goals: to meet > 75% est nutr needs Malnutrition Findings: Body Fat Depletion (Non Severe: Mild Depletion Weight Status: Overweight REGINA DELANEY MD May 21, 2018 16:54
--- NOTE | 2018-05-21 17:31 | NUR ---
Discharge instructions reviewed with patient and belongings, verbalized understanding. Patient was escorted out of hospital via wheelchair by Robert KEVIN, accompanied by her son. On license of [facility] was faxed all paperwork and orders to [phone].
[2018-05-21] MEDS ORDERED: MINERAL OIL/PETROLATUM TOPICAL CREAM 113GM JAR. TP SCH (21:00)
[2018-05-21] MEDS ORDERED: NYSTATIN 100,000 UNIT/GM TOPICAL CREAM 15GM TUBE. TP SCH (21:00)
[2018-05-21] MEDS ORDERED: HYDROCORTISONE 1% TOPICAL OINTMENT 30GM TUBE. TP SCH (21:00)
== END 2018-05-21 17:33 | disposition home health service (06) | DRG 542 ==
LOC: ER 11:20 → 4 NORTH 14:23
PROVIDERS: ADMIT Internal Medicine; ATTEND Internal Medicine
PROC: 3E0U3GC Introduction of Other Therapeutic Substance into Joints, Percutaneous Approach (ICD-10-PCS; principal; 2018-05-19)
DX: M80.08XA Age-related osteoporosis with current pathological fracture, vertebra(e), initial encounter for fracture (principal); E43 Unspecified severe protein-calorie malnutrition; M17.0 Bilateral primary osteoarthritis of knee; L29.9 Pruritus, unspecified; W18.30XA Fall on same level, unspecified, initial encounter; G62.9 Polyneuropathy, unspecified; G89.29 Other chronic pain; M19.90 Unspecified osteoarthritis, unspecified site; E03.9 Hypothyroidism, unspecified; E66.3 Overweight; F17.210 Nicotine dependence, cigarettes, uncomplicated; I12.9 Hypertensive chronic kidney disease with stage 1 through stage 4 chronic kidney disease, or unspecified chronic kidney disease; W18.39XA Other fall on same level, initial encounter; I48.91 Unspecified atrial fibrillation; K21.9 Gastro-esophageal reflux disease without esophagitis; N18.3 Chronic kidney disease, stage 3 (moderate); Z79.82 Long term (current) use of aspirin; Y93.89 Activity, other specified; Z68.26 Body mass index [BMI] 26.0-26.9, adult; Z79.899 Other long term (current) drug therapy; Y92.098 Other place in other non-institutional residence as the place of occurrence of the external cause; Y99.8 Other external cause status; R21 Rash and other nonspecific skin eruption
CPT/HCPCS: 36415; 70450; 71045; 72100; 72131; 73562; 80048; 80053; 80307; 81001; 82306; 82553; 83605; 83690; 83735; 83880; 84443; 84484; 85025; 85610; 87040; 87493; 93005; 96361; 96374; J1030; J2930; J3490; J7030; 97116; 97535; 99285-25

== ENCOUNTER 2018-06-12 10:16 | Inpatient (IN) | payer MEDICARE ==
[~2018-06-12] VITALS: Ht 154.9 cm; Wt 61.8 kg
[~2018-06-12 10:16] MED LIST changes: +NYST60PO TP
[2018-06-12] MEDS ORDERED: IPRATRPIUM/ALBUTEROL 0.5/2.5MG 3 ML NEBU. NEB ONE (10:45)
[2018-06-12 11:00] LABS: BASO % 1 % (0-3); EOS # 0.2 x10^3/uL (0.0-0.7); EOS % 3 % (0-3); LYMPH # 1.3 x10^3/uL (1.0-4.8); LYMPH % 18 % (24-48); MEAN CORPUSCULAR HEMOGLOBIN 30 pg (25-35); MEAN CORPUSCULAR HGB CONC 33 g/dL (31-37); MEAN CORPUSCULAR VOLUME 91 fL (79-100); MONO # 0.5 x10^3/uL (0.0-1.1); MONO % 7 % (0-9); NEUT % 71 % (31-73); PLATELET COUNT 238 x10^3/uL (140-400); RED BLOOD COUNT 4.41 x10^6/uL (3.50-5.40); RED CELL DISTRIBUTION WIDTH 17.4 % (11.5-14.5); WHITE BLOOD COUNT 7.1 x10^3/uL (4.0-11.0)
[2018-06-12 11:09] LABS: PROTHROMBIN TIME PATIENT 13.2 SEC (11.7-14.0)
[2018-06-12 11:10] LABS: CALCIUM 9.2 mg/dL (8.5-10.1); CREATININE 1.1 mg/dL (0.6-1.0); GFR 47.1; POTASSIUM 3.3 mmol/L (3.5-5.1)
--- NOTE | 2018-06-12 11:10 | EKG ---
[facility] [address] [place] [address] Test Date: 2018-06-12 Test Time: 10:33:28 Pat Name: CRISTO TANG Department: Room: Gender: Female Director Of Marketing And Promotions: : 1930 Requested By: AURELIA ISAAC Order Number: [id number] Reading MD: Duncan Rojas MD Measurements Intervals [place] Rate: 107 P: MI: QRS: 63 QRSD: 70 T: -10 QT: 352 QTc: 469 Interpretive Statements ATRIAL FIBRILLATION WITH RVR NON-SPECIFIC ST/T CHANGES PVC Electronically Signed On 06-15-2018 15:15:24 CDT by Duncan Rojas MD
--- NOTE | 2018-06-12 11:10 | RAD ---
AP view of the chest. Comparison: Chest radiograph dated 05/19/2018. Indication: Chest pain since this morning Findings: Slightly low lung volume. Bibasilar heterogenous airspace opacities. Pulmonary vascular indistinctness. Possible small right pleural effusion. No pneumothorax. Unchanged cardiomegaly. Unchanged atherosclerotic and tortuous thoracic aorta. No acute osseous abnormality. Incompletely visualized right humeral fixation hardware. IMPRESSION: 1. Bibasilar heterogenous airspace opacities could relate to atelectasis given the slightly low lung volumes. Pulmonary edema or infectious process would be difficult to exclude. 2. Possible small right pleural effusion. 3. Unchanged cardiomegaly. Electronically signed by: Gopal Ponce MD (06/12/2018 11:07 AM) [facility]
[2018-06-12 11:24] LABS: ALBUMIN 2.8 g/dL (3.4-5.0); ALBUMIN/GLOBULIN RATIO 0.7 (1.0-1.7); TOTAL BILIRUBIN 0.8 mg/dL (0.2-1.0)
--- NOTE | 2018-06-12 11:31 | PHYS DOC ---
Past Medical History Past Medical History: A-Fib, COPD, Hypertension, Hypothyroid, Other Additional Past Medical Histor: CHRONIC KNEE PAIN, HYPOKALEMIA Past Surgical History: Other Additional Past Surgical Histo: Right shoulder,R GLAND/JAW Alcohol Use: Heavy Drug Use: None Adult General Chief Complaint Chief Complaint: SHORTNESS OF BREATH HPI HPI Patient is a 88 year old female who presents with onset of shortness of breath. She states she cannot breath laying down and reports she's had head cold for the passed two days with increased white mucus production and cough. She reports a history of COPD. She denies f/c/n/v.[] Review of Systems Review of Systems Constitutional: Denies fever or chills [] Eyes: Denies change in visual acuity, redness, or eye pain [] HENT: Reports nasal congestion, denies sore throat [] Respiratory: Reports productive cough with increased shortness of breath [] Cardiovascular: No additional information not addressed in HPI [] GI: Denies abdominal pain, nausea, vomiting, bloody stools or diarrhea [] : Denies dysuria or hematuria [] Musculoskeletal: Denies back pain or joint pain [] Integument: Denies rash or skin lesions [] Neurologic: Denies headache, focal weakness or sensory changes [] Endocrine: Denies polyuria or polydipsia [] All other systems were reviewed and found to be within normal limits, except as documented in this note. Current Medications Current Medications Current Medications Medications (Trade) Dose Ordered Sig/Ramón Start Time Stop Time Status Last Admin Dose Admin Albuterol/ Ipratropium (Duoneb) 3 ml 1X ONCE 06/12/18 10:45 06/12/18 10:49 DC 06/12/18 10:46 3 ML Aspirin (Children'S Aspirin) 324 mg 1X ONCE 06/12/18 12:00 06/12/18 12:01 Doxycycline Hyclate 100 mg/ Dextrose 100 ml @ 50 mls/hr 1X ONCE 06/12/18 12:00 06/12/18 13:59 Furosemide (Lasix) 10 mg 1X ONCE 06/12/18 11:45 06/12/18 11:46 Methylprednisolone Sodium Succinate (SOLU-Medrol 125MG VIAL) 125 mg 1X ONCE 06/12/18 11:45 06/12/18 11:46 Potassium Chloride (KCl Oral Soln) 40 meq 1X ONCE 06/12/18 11:45 06/12/18 11:46 see med list Allergies Allergies Allergies Coded Allergies Type Severity Reaction Last Updated Verified No Known Drug Allergies 08/21/15 No Physical Exam Physical Exam Constitutional: Well developed, well nourished, no acute distress, non-toxic appearance. [] HENT: Normocephalic, atraumatic, bilateral external ears normal, oropharynx moist, no oral exudates, nose normal. [] Eyes: PERRLA, EOMI, conjunctiva normal, no discharge. [] Neck: Normal range of motion, no tenderness, supple, no stridor. [] Cardiovascular:Heart rate irregular rhythm, distant heart sounds, 2/6 systolic murmur [] Lungs & Thorax: Bilateral expiratory wheezes, diminished breath sounds all lung posts [] Abdomen: Bowel sounds normal, soft, no tenderness, no masses, no pulsatile masses. [] Skin: Warm, dry, no erythema, visible non acute facial lesion perinasal. [] Back: No tenderness, no CVA tenderness. [] Extremities: b/l venous stasis and 2/4 edema to LE, no tenderness, no cyanosis, no clubbing, ROM intact. [] Neurologic: Alert and oriented X 3, normal motor function, normal sensory function, no focal deficits noted. [] Psychologic: Affect normal, judgement normal, mood normal. [] Current Patient Data Vital Signs Vital Signs Date Time Temp Pulse Resp B/P (MAP) Pulse Ox O2 Delivery O2 Flow Rate FiO2 06/12/18 10:39 99 Room Air 06/12/18 10:21 98.0 88 24 130/93 (105) 98.0 Lab Values Laboratory Tests Test 06/12/18 10:45 White Blood Count 7.1 x10^3/uL (4.0-11.0) Red Blood Count 4.41 x10^6/uL (3.50-5.40) Hemoglobin 13.0 g/dL (12.0-15.5) Hematocrit 40.0 % (36.0-47.0) Mean Corpuscular Volume 91 fL (79-100) Mean Corpuscular Hemoglobin 30 pg (25-35) Mean Corpuscular Hemoglobin Concent 33 g/dL (31-37) Red Cell Distribution Width 17.4 % (11.5-14.5) H Platelet Count 238 x10^3/uL (140-400) Neutrophils (%) (Auto) 71 % (31-73) Lymphocytes (%) (Auto) 18 % (24-48) L Monocytes (%) (Auto) 7 % (0-9) Eosinophils (%) (Auto) 3 % (0-3) Basophils (%) (Auto) 1 % (0-3) Neutrophils # (Auto) 5.0 x10^3uL (1.8-7.7) Lymphocytes # (Auto) 1.3 x10^3/uL (1.0-4.8) Monocytes # (Auto) 0.5 x10^3/uL (0.0-1.1) Eosinophils # (Auto) 0.2 x10^3/uL (0.0-0.7) Basophils # (Auto) 0.0 x10^3/uL (0.0-0.2) Prothrombin Time 13.2 SEC (11.7-14.0) Prothrombin Time INR 1.0 (0.8-1.1) Sodium Level 144 mmol/L (136-145) Potassium Level 3.3 mmol/L (3.5-5.1) L Chloride Level 107 mmol/L (98-107) Carbon Dioxide Level 26 mmol/L (21-32) Anion Gap 11 (6-14) Blood Urea Nitrogen 18 mg/dL (7-20) Creatinine 1.1 mg/dL (0.6-1.0) H Estimated GFR (Cockcroft-Gault) 47.1 BUN/Creatinine Ratio 16 (6-20) Glucose Level 165 mg/dL (70-99) H Lactic Acid Level 1.7 mmol/L (0.4-2.0) Calcium Level 9.2 mg/dL (8.5-10.1) Total Bilirubin 0.8 mg/dL (0.2-1.0) Aspartate Amino Transferase (AST) 15 U/L (15-37) Alanine Aminotransferase (ALT) 16 U/L (14-59) Alkaline Phosphatase 93 U/L (46-116) Troponin I Quantitative 0.076 ng/mL (0.000-0.055) XH-Iao-V-Type Natriuretic Peptide 7541 pg/mL (0-449) H Total Protein 7.0 g/dL (6.4-8.2) Albumin 2.8 g/dL (3.4-5.0) L Albumin/Globulin Ratio 0.7 (1.0-1.7) L Laboratory Tests 06/12/18 10:45 Laboratory Tests 06/12/18 10:45 EKG EKG probable a-fib, rate 107 bpm, nonspecific ST changes anteriorly[] Radiology/Procedures Radiology/Procedures [] Impressions: IMPRESSION: 1. Bibasilar heterogenous airspace opacities could relate to atelectasis given the slightly low lung volumes. Pulmonary edema or infectious process would be difficult to exclude. 2. Possible small right pleural effusion. 3. Unchanged cardiomegaly. Electronically signed by: Gopal Ponce MD (06/12/2018 11:07 AM) [facility] Course & Med Decision Making Course & Med Decision Making Pertinent Labs and Imaging studies reviewed. (See chart for details) Pt presents with acute onset shortness of breath in setting of COPD. CXR consistent for pulmonary edema or infectious process with possible small right pleural effusion and cardiomegaly. Current EKG consistent with a-fib not observed on previous EKG. Given increased cough and sputum production concerned for acute COPD exacerbation, however, given cardiac status, cannot exclude congestive heart failure induce pulmonary edema and volume overload. Pt denies fever, chills, nausea, vomiting which lessens concern for infectious etiology such as a pneumonia or UTI. Will proceed with respiratory therapy, assess cardiac labs, blood cultures. []BNP AND TROP MILDLY ELEVATED, SUSPECT GIVEN ORTHOPNEA, PROBABLY NEW CHF. HAS LIKELY AFIB ON EKG, ASIPRIN GIVEN FOR NOW, LASIX, K REPLETED DDX INCLUDES PNA SO GAVE SOLUMEDROL DOXY AND DUONEB IN ER BUT CXR AND LABS MORE SUGG OF CHF WILL D/W KI FOR ADMISSION. Dragon Disclaimer Dragon Disclaimer This electronic medical record was generated, in whole or in part, using a voice recognition dictation system. Departure Departure Impression: Primary Impression: CHF (congestive heart failure) Disposition: ADMITTED INPATIENT Admitting Physician: Aguilar Shabazz Condition: STABLE Referrals: JENNIFER TELLES (PCP) AURELIA ISAAC MD Jun 12, 2018 11:31
[2018-06-12] MEDS ORDERED: FUROSEMIDE 20 MG/2 ML VIAL. IVP ONE ×2 (11:45→14:15)
[2018-06-12] MEDS ORDERED: methylPREDNISolone SOD SUCC PF 125 MG/2 ML VIAL. IV ONE (11:45)
[2018-06-12] MEDS ORDERED: POTASSIUM CHLORIDE 20 MEQ/15 ML ORAL LIQUID. PO ONE (11:45)
[2018-06-12] MEDS ORDERED: ASPIRIN CHEWABLE 81 MG TABLET. PO ONE (12:00)
[2018-06-12] MEDS ORDERED: DOXYCYCLINE HYCLATE 100 MG in IV DEXTROSE 5% 100ML 100 ML IV ONE (12:00)
--- NOTE | 2018-06-12 12:22 | HP ---
ADMIT DATE: 06/12/2018 CHIEF COMPLAINT: Shortness of breath. HISTORY OF PRESENT ILLNESS: The patient is a pleasant 88-year-old female with multiple comorbidities. She is well known to our service. We do admit her several times a year. At this time, she presents with shortness of breath. It appears she is in heart failure. Her son states that she has had heart failure in the distant past and was placed on Lasix. She does have chronic AFib and COPD too. She describes her symptoms as agonizing, rated at 10/10. It has been coming on for 2 days, worse with moving, better with sitting still. She also has orthopnea, sleeps on several pillows. Her BNP level is greater than 7000. Chest x-ray is showing vascular congestion and/or pneumonia. I discussed the case with the ER physician. She also has a right pleural effusion. We are going to admit the patient and consult Cardiology and Pulmonary. The patient is being examined in the ER, where she is critically ill. PAST MEDICAL HISTORY: COPD, AFib, hypertension, hyperlipidemia, hypothyroidism, chronic knee pain, hypokalemia, right shoulder surgery, right jaw surgery and heavy alcohol abuse. ALLERGIES: None. FAMILY HISTORY: Coronary artery disease. SOCIAL HISTORY: She drinks. She used to smoke; I think she quit. No drugs. I think she lives at home with her 2 sons. They are here and seem to be good support for her. MEDICATIONS: Reviewed. She is on cephalexin, Coreg, Cozaar, aspirin, hydrocodone, potassium, Lasix, famotidine and nystatin. REVIEW OF SYSTEMS: GENERAL: No history of weight change or fevers. She complains of weakness. SKIN: No bruising, hair changes or rashes. EYES: No blurred, double or loss of vision. NOSE AND THROAT: No history of nosebleeds, hoarseness or sore throat. HEART: No history of palpitations, chest pain or shortness of breath on exertion. LUNGS: Denies cough, hemoptysis or wheezing. She complains of shortness of breath. GASTROINTESTINAL: Denies changes in appetite, nausea, vomiting, diarrhea or constipation. GENITOURINARY: No history of frequency, urgency, hesitancy or nocturia. NEUROLOGIC: Denies history of numbness, tingling or tremor. She complains of anxiety, weakness and depression. PSYCHIATRIC: No history of panic, anxiety or depression. ENDOCRINE: No history of heat or cold intolerance, polyuria or polydipsia. EXTREMITIES: Denies muscle weakness, joint pain, pain on walking or stiffness. PHYSICAL EXAMINATION: VITAL SIGNS: Temperature 98, pulse 90, respirations 24, blood pressure 133/93 and O2 sats 94% on room air. GENERAL: She is sleeping, she barely awakens. HEART: Tachy, S1 and S2, irregular. LUNGS: Coarse. ABDOMEN: Soft. Decreased bowel sounds. EXTREMITIES: With 2+ edema. SKIN: No rashes, but she is poorly kept, has some dirt on her skin. ENDOCRINE: No thyromegaly. LYMPHATICS: No cervical nodes. HEMATOPOIETIC: No bruising. PSYCHIATRIC: She is very depressed. LABORATORY DATA: White count 7, hemoglobin 13 and platelets 238,000. Electrolytes: Sodium 144, potassium 3.3, chloride 107, bicarbonate 26, BUN 18, creatinine 1.1 and glucose 165. Troponin 0.076 and elevated. BNP 7541. Chest x-ray shows vascular congestion and pneumonia. Albumin is 2.8. ASSESSMENT AND PLAN: Iievh-np-yclylem systolic and diastolic heart failure and/or pneumonia, hypokalemia, hyperglycemia, elevated BNP, elevated troponin and malnutrition. The patient is being admitted. We will start IV Lasix, cardiac monitoring, serial enzymes, serial EKGs, echocardiogram, consult Cardiology, consult Pulmonary, DVT prophylaxis, home meds and frequent labs. DuoNebs if she can tolerate them. Replace her potassium, IV Solu-Medrol. She is critically ill. TOTAL TIME: 35 minutes. ALYSSA EMERSON DO DR: POP/david JOB#: [id number] / [id number]
[2018-06-12] MEDS ORDERED: DIPH25CA58 PO (13:05)
[2018-06-12] MEDS ORDERED: OMEG-57 PO (13:05)
[2018-06-12 13:06] VITALS: BP 146/83
[2018-06-12] MEDS ORDERED: HYDR-2759 PO (14:04)
[2018-06-12] MEDS ORDERED: POTASSIUM CHLORIDE 10 MEQ TABLET.ER. PO ONE (14:15)
[2018-06-12] MEDS: NICOTINE 21MG PATCH. TD SCH (14:19)
[2018-06-12 14:55] VITALS: BP_SYST 153; BP_SYST 88; BP_DIAS 65; BP_DIAS 95
--- NOTE | 2018-06-12 16:34 | NUR ---
Patient arrived to unit from ED via bed, I was notified by nurse who brought her that she could barely stand to transfer. Patient is afib on the monitor. Vital signs stable. Patient accompanied by 2 sons, oriented to room and routines. Consults called to Dr. Mosley and Dr. Duran. Orders received. Will continue to monitor.
[2018-06-12] MEDS: CARVEDILOL 6.25 MG TABLET. PO SCH (18:10)
[2018-06-12] MEDS: HYDROcodone/APAP 5/325MG 1 TAB TABLET PO PRN (18:10)
[2018-06-12 19:35] VITALS: BP 171/104
[2018-06-12] MEDS ORDERED: guaiFENesin DM 200MG/20MG 10 ML SYRUP PO PRN (21:00)
[2018-06-12] MEDS ORDERED: cloNIDine HCL 0.2 MG TABLET PO PRN (21:00)
[2018-06-12] MEDS: NYSTATIN TOPICAL POWDER 15GM BOTTLE. TP SCH (21:22)
[2018-06-12 23:15] VITALS: BP 159/100
[2018-06-13 03:44] VITALS: BP 163/93
[2018-06-13 07:00] VITALS: BP 184/82
--- NOTE | 2018-06-13 07:24 | PDOC ---
PROGRESS NOTES Chief Complaint Chief Complaint Ecleb-yd-tplsahy systolic and diastolic heart failure +/- pneumonia hypokalemia hyperglycemia elevated troponin Severe protein calorie malnutrition - albumin 2.8 History of Present Illness History of Present Illness Ms Alonso is an 88yo F w/ PMHx COPD, AFib, hypertension, hyperlipidemia, hypothyroidism, chronic knee pain, hypokalemia, right shoulder surgery, right jaw surgery and heavy alcohol abuse who was admitted for worsening shortness of breath, weakness, hypoxia and bilateral opacities on CXR. She is still feeling very weak. Does not feel she can even get out of bed to urinate. Short of breath. Denies CP, no abdominal pain Plan: Cont diuresis, herrera Wean O2 as tolerated PT/OT, may need placement for recovery from this CHF exacerbation Vitals Vitals Vital Signs Date Time Temp Pulse Resp B/P (MAP) Pulse Ox O2 Delivery O2 Flow Rate FiO2 06/13/18 03:44 98.2 64 19 163/93 (116) 100 Nasal Cannula 2.0 98.2 Physical Exam General: Alert, Cooperative Heart: Other (Irregular rate) Lungs: Clear Labs LABS Laboratory Tests Test 06/12/18 10:45 06/12/18 14:42 06/12/18 17:45 White Blood Count 7.1 x10^3/uL (4.0-11.0) Red Blood Count 4.41 x10^6/uL (3.50-5.40) Hemoglobin 13.0 g/dL (12.0-15.5) Hematocrit 40.0 % (36.0-47.0) Mean Corpuscular Volume 91 fL (79-100) Mean Corpuscular Hemoglobin 30 pg (25-35) Mean Corpuscular Hemoglobin Concent 33 g/dL (31-37) Red Cell Distribution Width 17.4 % (11.5-14.5) Platelet Count 238 x10^3/uL (140-400) Neutrophils (%) (Auto) 71 % (31-73) Lymphocytes (%) (Auto) 18 % (24-48) Monocytes (%) (Auto) 7 % (0-9) Eosinophils (%) (Auto) 3 % (0-3) Basophils (%) (Auto) 1 % (0-3) Neutrophils # (Auto) 5.0 x10^3uL (1.8-7.7) Lymphocytes # (Auto) 1.3 x10^3/uL (1.0-4.8) Monocytes # (Auto) 0.5 x10^3/uL (0.0-1.1) Eosinophils # (Auto) 0.2 x10^3/uL (0.0-0.7) Basophils # (Auto) 0.0 x10^3/uL (0.0-0.2) Prothrombin Time 13.2 SEC (11.7-14.0) Prothromb Time International Ratio 1.0 (0.8-1.1) Sodium Level 144 mmol/L (136-145) Potassium Level 3.3 mmol/L (3.5-5.1) Chloride Level 107 mmol/L (98-107) Carbon Dioxide Level 26 mmol/L (21-32) Anion Gap 11 (6-14) Blood Urea Nitrogen 18 mg/dL (7-20) Creatinine 1.1 mg/dL (0.6-1.0) Estimated GFR (Cockcroft-Gault) 47.1 BUN/Creatinine Ratio 16 (6-20) Glucose Level 165 mg/dL (70-99) Lactic Acid Level 1.7 mmol/L (0.4-2.0) Calcium Level 9.2 mg/dL (8.5-10.1) Total Bilirubin 0.8 mg/dL (0.2-1.0) Aspartate Amino Transf (AST/SGOT) 15 U/L (15-37) Alanine Aminotransferase (ALT/SGPT) 16 U/L (14-59) Alkaline Phosphatase 93 U/L (46-116) Troponin I Quantitative 0.076 ng/mL (0.000-0.055) 0.089 ng/mL (0.000-0.055) 0.072 ng/mL (0.000-0.055) AV-Upy-K-Type Natriuretic Peptide 7541 pg/mL (0-449) Total Protein 7.0 g/dL (6.4-8.2) Albumin 2.8 g/dL (3.4-5.0) Albumin/Globulin Ratio 0.7 (1.0-1.7) Comment Review of Relevant I have reviewed the following items lupe (where applicable) has been applied. Labs Laboratory Tests Test 06/12/18 10:45 06/12/18 14:42 06/12/18 17:45 White Blood Count 7.1 x10^3/uL (4.0-11.0) Red Blood Count 4.41 x10^6/uL (3.50-5.40) Hemoglobin 13.0 g/dL (12.0-15.5) Hematocrit 40.0 % (36.0-47.0) Mean Corpuscular Volume 91 fL (79-100) Mean Corpuscular Hemoglobin 30 pg (25-35) Mean Corpuscular Hemoglobin Concent 33 g/dL (31-37) Red Cell Distribution Width 17.4 % (11.5-14.5) Platelet Count 238 x10^3/uL (140-400) Neutrophils (%) (Auto) 71 % (31-73) Lymphocytes (%) (Auto) 18 % (24-48) Monocytes (%) (Auto) 7 % (0-9) Eosinophils (%) (Auto) 3 % (0-3) Basophils (%) (Auto) 1 % (0-3) Neutrophils # (Auto) 5.0 x10^3uL (1.8-7.7) Lymphocytes # (Auto) 1.3 x10^3/uL (1.0-4.8) Monocytes # (Auto) 0.5 x10^3/uL (0.0-1.1) Eosinophils # (Auto) 0.2 x10^3/uL (0.0-0.7) Basophils # (Auto) 0.0 x10^3/uL (0.0-0.2) Prothrombin Time 13.2 SEC (11.7-14.0) Prothromb Time International Ratio 1.0 (0.8-1.1) Sodium Level 144 mmol/L (136-145) Potassium Level 3.3 mmol/L (3.5-5.1) Chloride Level 107 mmol/L (98-107) Carbon Dioxide Level 26 mmol/L (21-32) Anion Gap 11 (6-14) Blood Urea Nitrogen 18 mg/dL (7-20) Creatinine 1.1 mg/dL (0.6-1.0) Estimated GFR (Cockcroft-Gault) 47.1 BUN/Creatinine Ratio 16 (6-20) Glucose Level 165 mg/dL (70-99) Lactic Acid Level 1.7 mmol/L (0.4-2.0) Calcium Level 9.2 mg/dL (8.5-10.1) Total Bilirubin 0.8 mg/dL (0.2-1.0) Aspartate Amino Transf (AST/SGOT) 15 U/L (15-37) Alanine Aminotransferase (ALT/SGPT) 16 U/L (14-59) Alkaline Phosphatase 93 U/L (46-116) Troponin I Quantitative 0.076 ng/mL (0.000-0.055) 0.089 ng/mL (0.000-0.055) 0.072 ng/mL (0.000-0.055) LE-Cfs-E-Type Natriuretic Peptide 7541 pg/mL (0-449) Total Protein 7.0 g/dL (6.4-8.2) Albumin 2.8 g/dL (3.4-5.0) Albumin/Globulin Ratio 0.7 (1.0-1.7) Laboratory Tests Test 06/12/18 10:45 06/12/18 14:42 06/12/18 17:45 White Blood Count 7.1 x10^3/uL (4.0-11.0) Red Blood Count 4.41 x10^6/uL (3.50-5.40) Hemoglobin 13.0 g/dL (12.0-15.5) Hematocrit 40.0 % (36.0-47.0) Mean Corpuscular Volume 91 fL (79-100) Mean Corpuscular Hemoglobin 30 pg (25-35) Mean Corpuscular Hemoglobin Concent 33 g/dL (31-37) Red Cell Distribution Width 17.4 % (11.5-14.5) Platelet Count 238 x10^3/uL (140-400) Neutrophils (%) (Auto) 71 % (31-73) Lymphocytes (%) (Auto) 18 % (24-48) Monocytes (%) (Auto) 7 % (0-9) Eosinophils (%) (Auto) 3 % (0-3) Basophils (%) (Auto) 1 % (0-3) Neutrophils # (Auto) 5.0 x10^3uL (1.8-7.7) Lymphocytes # (Auto) 1.3 x10^3/uL (1.0-4.8) Monocytes # (Auto) 0.5 x10^3/uL (0.0-1.1) Eosinophils # (Auto) 0.2 x10^3/uL (0.0-0.7) Basophils # (Auto) 0.0 x10^3/uL (0.0-0.2) Prothrombin Time 13.2 SEC (11.7-14.0) Prothromb Time International Ratio 1.0 (0.8-1.1) Sodium Level 144 mmol/L (136-145) Potassium Level 3.3 mmol/L (3.5-5.1) Chloride Level 107 mmol/L (98-107) Carbon Dioxide Level 26 mmol/L (21-32) Anion Gap 11 (6-14) Blood Urea Nitrogen 18 mg/dL (7-20) Creatinine 1.1 mg/dL (0.6-1.0) Estimated GFR (Cockcroft-Gault) 47.1 BUN/Creatinine Ratio 16 (6-20) Glucose Level 165 mg/dL (70-99) Lactic Acid Level 1.7 mmol/L (0.4-2.0) Calcium Level 9.2 mg/dL (8.5-10.1) Total Bilirubin 0.8 mg/dL (0.2-1.0) Aspartate Amino Transf (AST/SGOT) 15 U/L (15-37) Alanine Aminotransferase (ALT/SGPT) 16 U/L (14-59) Alkaline Phosphatase 93 U/L (46-116) Troponin I Quantitative 0.076 ng/mL (0.000-0.055) 0.089 ng/mL (0.000-0.055) 0.072 ng/mL (0.000-0.055) FO-Fxh-C-Type Natriuretic Peptide 7541 pg/mL (0-449) Total Protein 7.0 g/dL (6.4-8.2) Albumin 2.8 g/dL (3.4-5.0) Albumin/Globulin Ratio 0.7 (1.0-1.7) Medications Current Medications Albuterol/ Ipratropium (Duoneb) 3 ml 1X ONCE NEB Last administered on at 10:46; Start 06/12/18 at 10:45; Stop 06/12/18 at 10:49; Status DC Doxycycline Hyclate 100 mg/ Dextrose 100 ml @ 50 mls/hr 1X ONCE IV Last administered on 06/12/18 11:44; Start 06/12/18 at 12:00; Stop 06/12/18 at 13:59; Status DC Methylprednisolone Sodium Succinate (SOLU-Medrol 125MG VIAL) 125 mg 1X ONCE IV Last administered on 06/12/18at 11:43; Start 06/12/18 at 11:45; Stop 06/12/18 at 11:46; Status DC Furosemide (Lasix) 10 mg 1X ONCE IVP Last administered on 06/12/18 11:42; Start 06/12/18 at 11:45; Stop 06/12/18 at 11:46; Status DC Potassium Chloride (KCl Oral Soln) 40 meq 1X ONCE PO Last administered on 11:43; Start 06/12/18 at 11:45; Stop 06/12/18 at 11:46; Status DC Aspirin (Children'S Aspirin) 324 mg 1X ONCE PO Last administered on 06/12/18at 11:54; Start 06/12/18 at 12:00; Stop 06/12/18 at 12:01; Status DC Aspirin (Ecotrin) 81 mg DAILY PO ; Start 06/13/18 at 09:00 Carvedilol (Coreg) 6.25 mg BIDWMEALS PO Last administered on 06/12/18at 18:10; Start 06/12/18 at 17:00 Diphenhydramine HCl (Benadryl) 25 mg DAILY PO ; Start 06/13/18 at 09:00 Famotidine (Pepcid) 20 mg DAILY PO ; Start 06/13/18 at 09:00 Acetaminophen/ Hydrocodone Bitart (Lortab 5/325) 1 tab PRN Q4HRS PRN PO PAIN Last administered on 06/12/18 18:10; Start 06/12/18 at 14:15 Losartan Potassium (Cozaar) 25 mg DAILY PO ; Start 06/13/18 at 09:00 Nystatin (Nystop) 1 bret BID TP Last administered on 06/12/18at 21:22; Start at 21:00 Fish Oil (Fish Oil) 1,000 mg DAILY PO ; Start 06/13/18 at 09:00 Furosemide (Lasix) 20 mg 1X ONCE IVP Last administered on 06/12/18 14:19; Start 06/12/18 at 14:15; Stop 06/12/18 at 14:16; Status DC Potassium Chloride (Klor-Con) 30 meq 1X ONCE PO Last administered on 06/12/18 14:19; Start 06/12/18 at 14:15; Stop 06/12/18 at 14:16; Status DC Nicotine (Nicoderm Cq 21mg) 1 patch DAILY TD Last administered on 06/12/18 14: 19; Start 06/12/18 at 14:15 Guaifenesin (Robitussin Dm) 10 ml PRN Q6HRS PRN PO COUGH Last administered on 21:22; Start 06/12/18 at 21:00 Clonidine HCl (Catapres) 0.2 mg PRN Q1HR PRN PO HYPERTENSION, SEE COMMENTS Last administered on 06/12/18 21:22; Start 06/12/18 at 21:00 Active Scripts Active Nystop (Nystatin) 60 Gm Powder 1 Bret TP BID MDD 1 Cozaar (Losartan Potassium) 25 Mg Tablet 25 Mg PO DAILY Reported Hydrocodone-Acetamin 5-325 mg (Hydrocodone/Acetaminophen) 1 Each Tablet 1 Each PO PRN Q4HRS PRN Fish Oil + D3 Softgel (Hennessey-3S/Dha/Epa/Fish Oil/D3) 1 Each Capsule 1 Each PO DAILY Benadryl (Diphenhydramine Hcl) 25 Mg Capsule 25 Mg PO DAILY Famotidine 20 Mg Tablet 20 Mg PO DAILY Aspir-Low (Aspirin) 81 Mg Tablet.dr 81 Mg PO DAILY Furosemide 40 Mg Tablet 40 Mg PO DAILY Coreg (Carvedilol) 6.25 Mg Tablet 6.25 Mg PO BIDWMEALS Potassium Chloride 10 Meq Capsule.er 10 Meq PO DAILY Vitals/I & O Vital Sign - Last 24 Hours 06/12/18 06/12/18 06/12/18 06/12/18 10:21 10:39 13:06 14:55 Temp 98.0 97.7 97.7 98.0 97.7 97.7 Pulse 88 78 89 Resp 24 18 18 B/P (MAP) 130/93 (105) 146/83 (104) 153/95 (114) Pulse Ox 95 99 93 96 O2 Delivery Room Air Room Air Nasal Cannula Nasal Cannula O2 Flow Rate 2.0 2.0 06/12/18 06/12/18 06/12/18 06/12/18 16:19 18:10 18:10 19:35 Temp 97.9 97.9 Pulse 85 89 Resp 18 20 B/P (MAP) 159/101 171/104 (126) Pulse Ox 98 O2 Delivery Nasal Cannula Nasal Cannula Nasal Cannula O2 Flow Rate 2.0 2.0 2.0 06/12/18 06/12/18 06/12/18 06/13/18 20:00 21:22 23:15 03:44 Temp 98.1 98.2 98.1 98.2 Pulse 89 67 64 Resp 19 19 B/P (MAP) 171/104 159/100 (119) 163/93 (116) Pulse Ox 100 100 O2 Delivery Nasal Cannula Nasal Cannula Nasal Cannula O2 Flow Rate 2.0 2.0 2.0 Intake and Output 06/12/18 06/12/18 06/13/18 15:00 23:00 07:00 Intake Total 60 ml 200 ml Output Total 1275 ml 550 ml Balance -1215 ml -350 ml Images CXR - 1. Bibasilar heterogenous airspace opacities could relate to atelectasis given the slightly low lung volumes. Pulmonary edema or infectious process would be difficult to exclude. 2. Possible small right pleural effusion. 3. Unchanged cardiomegaly. LEATHA GHOSH MD Jun 13, 2018 07:24
[2018-06-13] MEDS: OMEGA-3 FATTY ACIDS/FISH OIL 1,000 MG CAPSULE. PO SCH (09:03)
[2018-06-13] MEDS: LOSARTAN POTASSIUM 25 MG TABLET. PO SCH (09:04)
[2018-06-13] MEDS: ASPIRIN ENTERIC COATED 81 MG TABLET.DR. PO SCH (09:04)
[2018-06-13] MEDS: NICOTINE 21MG PATCH. TD SCH (09:04)
[2018-06-13] MEDS: diphenhydrAMINE HCL 25 MG CAPSULE PO SCH (09:04)
[2018-06-13] MEDS: FAMOTIDINE 20 MG TABLET. PO SCH (09:04)
[2018-06-13] MEDS: CARVEDILOL 6.25 MG TABLET. PO SCH ×2 (09:04→17:13)
[2018-06-13] MEDS: NYSTATIN TOPICAL POWDER 15GM BOTTLE. TP SCH ×2 (09:04→21:05)
[2018-06-13 09:19] LABS: CALCIUM 9.1 mg/dL (8.5-10.1); CREATININE 1.2 mg/dL (0.6-1.0); GFR 42.6; MAGNESIUM 1.8 mg/dL (1.8-2.4); POTASSIUM 4.3 mmol/L (3.5-5.1)
[2018-06-13 11:00] VITALS: BP 116/79
[2018-06-13] MEDS: IPRATRPIUM/ALBUTEROL 0.5/2.5MG 3 ML NEBU. NEB SCH ×3 (11:53→19:40)
--- NOTE | 2018-06-13 11:54 | CONS ---
DATE OF CONSULTATION: 06/13/2018 ATTENDING PHYSICIAN: Dr. Shabazz. REASON FOR CONSULTATION: Dyspnea. HISTORY OF PRESENT ILLNESS: The patient is an 88-year-old female who smoked 3 packs per day for the last 50+ years. She is not on home oxygen. She was brought into the hospital with increasing shortness of breath. According to the son, the patient had a head cold and then she developed orthopnea. She has no chest pain. No history of deep vein thrombosis or pulmonary embolism. She did not have any cough. No fever, no chills. She has chronic atrial fibrillation. She was seen in the Emergency Room where chest x-ray was reviewed by me and it shows congestive heart failure. Her proBNP was greater than 7000. She is in no obvious respiratory distress at present. She is a bit weak and lethargic. Blood pressure is on the high side earlier at 184 systolic, now down to 116. Her sats 100% on 2 liters. She is afebrile. PAST MEDICAL HISTORY: Significant for history of cardiomyopathy with an EF of 40% in 2016. Suspected severe COPD, history of atrial fibrillation, hyperlipidemia, hypothyroidism, chronic knee pain. PAST SURGICAL HISTORY: Right jaw surgery. ALLERGIES: None. FAMILY HISTORY: Coronary artery disease. SOCIAL HISTORY: She drinks. She smokes 3 packs per day since her teenage years. MEDICATIONS: All reviewed as listed in the MRAD. REVIEW OF SYSTEMS: Twelve-point system obtained. Pertinent positives discussed in my history of present illness, otherwise noncontributory. All systems that were negative were reviewed as well. PHYSICAL EXAMINATION: VITAL SIGNS: Reviewed. Pulse ox 100% on 2 liters. NECK: Supple. LUNGS: With few crackles posteriorly. CARDIOVASCULAR: Regular rate. ABDOMEN: Soft. EXTREMITIES: With no pitting edema. LABORATORY DATA: Reviewed. White cell count 7.1, hemoglobin 13.0, platelets are 238. BUN 22 and creatinine 1.1. Her troponin is 0.089. ProBNP 7541. IMPRESSION: 1. Acute hypoxic respiratory failure secondary to acute on chronic systolic heart failure. 2. Abnormal chest x-ray consistent with mild interstitial edema. 3. Heavy history of tobacco use, 3 packs per day since teenage years and suspect severe chronic obstructive pulmonary disease. 4. Clinically cannot exclude a component of pneumonia. We will obtain procalcitonin level. RECOMMENDATIONS: 1. Discussed with the patient's son and RN. We will continue present diuresis. 2. Obtain echocardiogram. 3. Wean off oxygen. 4. Obtain procalcitonin level and if it is abnormal, then we can continue antibiotics with clinically less likely infection. 5. Follow cardiology recommendations. 6. The patient has chronic atrial fibrillation. DHRUV SEARS MD DR: YULISSA/david JOB#: [id number] / [id number]
[2018-06-13] MEDS ORDERED: FUROSEMIDE 20 MG/2 ML VIAL. IVP ONE (12:00)
--- NOTE | 2018-06-13 12:52 | PDOC2 ---
CONSULT Date of Consult Date of Consult DATE: 06/13/18 TIME: 12:47 Reason for Consult Reason for Consult: Shortness of breath, heart failure Referring Physician Referring Physician: Dr. Shabazz Identification/Chief Complaint Chief Complaint Shortness of breath Source Source: Chart review, Patient History of Present Illness Reason for Visit: The patient is an 88-year-old female who was admitted through the emergency room for progressively increasing shortness of breath last night. Her chest x- ray showed bilateral opacities. She has a history of heart failure, COPD, chronic atrial fibrillation and hypertension. After treatment last evening she is feeling mildly better. She denies chest pain. We have no recent echocardiogram. Past Medical History Cardiovascular: AFIB, CHF, HTN Pulmonary: No pertinent hx, COPD CENTRAL NERVOUS SYSTEM: Other GI: GERD, Gastritis Heme/Onc: No pertinent hx Hepatobiliary: No pertinent hx Psych: No pertinent hx Musculoskeletal: Osteoarthritis Rheumatologic: No pertinent hx Infectious disease: No pertinent hx Renal/: No pertinent hx Endocrine: Hypothyroidism Past Surgical History Past Surgical History: Cataract Removal, Other (right shoulder surgery) Family History Family History: No Significant, Family History Unknown, Other Social History Quit (she has discontinued smoking but has a greater than [id number] history. ) ALCOHOL: none Drugs: None Lives: with Family Current Medications Current Medications Current Medications Albuterol/ Ipratropium (Duoneb) 3 ml 1X ONCE NEB Last administered on at 10:46; Start 06/12/18 at 10:45; Stop 06/12/18 at 10:49; Status DC Doxycycline Hyclate 100 mg/ Dextrose 100 ml @ 50 mls/hr 1X ONCE IV Last administered on 06/12/18at 11:44; Start 06/12/18 at 12:00; Stop 06/12/18 at 13:59; Status DC Methylprednisolone Sodium Succinate (SOLU-Medrol 125MG VIAL) 125 mg 1X ONCE IV Last administered on 06/12/18at 11:43; Start 06/12/18 at 11:45; Stop 06/12/18 at 11:46; Status DC Furosemide (Lasix) 10 mg 1X ONCE IVP Last administered on 06/12/18at 11:42; Start 06/12/18 at 11:45; Stop 06/12/18 at 11:46; Status DC Potassium Chloride (KCl Oral Soln) 40 meq 1X ONCE PO Last administered on 11:43; Start 06/12/18 at 11:45; Stop 06/12/18 at 11:46; Status DC Aspirin (Children'S Aspirin) 324 mg 1X ONCE PO Last administered on 06/12/18 11:54; Start 06/12/18 at 12:00; Stop 06/12/18 at 12:01; Status DC Aspirin (Ecotrin) 81 mg DAILY PO Last administered on 06/13/18 09:04; Start 06/13/18 at 09:00 Carvedilol (Coreg) 6.25 mg BIDWMEALS PO Last administered on 06/13/18 09:04; Start 06/12/18 at 17:00 Diphenhydramine HCl (Benadryl) 25 mg DAILY PO Last administered on 06/13/18 09: 04; Start 06/13/18 at 09:00 Famotidine (Pepcid) 20 mg DAILY PO Last administered on 06/13/18 09:04; Start 06/13/18 at 09:00 Acetaminophen/ Hydrocodone Bitart (Lortab 5/325) 1 tab PRN Q4HRS PRN PO PAIN Last administered on 06/12/18 18:10; Start 06/12/18 at 14:15 Losartan Potassium (Cozaar) 25 mg DAILY PO Last administered on 06/13/18 09:04 ; Start 06/13/18 at 09:00 Nystatin (Nystop) 1 bret BID TP Last administered on 06/13/18 09:04; Start at 21:00 Fish Oil (Fish Oil) 1,000 mg DAILY PO Last administered on 06/13/18 09:03; Start 06/13/18 at 09:00 Furosemide (Lasix) 20 mg 1X ONCE IVP Last administered on 06/12/18 14:19; Start 06/12/18 at 14:15; Stop 06/12/18 at 14:16; Status DC Potassium Chloride (Klor-Con) 30 meq 1X ONCE PO Last administered on 06/12/18 14:19; Start 06/12/18 at 14:15; Stop 06/12/18 at 14:16; Status DC Nicotine (Nicoderm Cq 21mg) 1 patch DAILY TD Last administered on 4/7/19at 09: 04; Start 06/12/18 at 14:15 Guaifenesin (Robitussin Dm) 10 ml PRN Q6HRS PRN PO COUGH Last administered on at 21:22; Start 06/12/18 at 21:00 Clonidine HCl (Catapres) 0.2 mg PRN Q1HR PRN PO HYPERTENSION, SEE COMMENTS Last administered on 06/12/18at 21:22; Start 06/12/18 at 21:00 Furosemide (Lasix) 20 mg 1X ONCE IVP Last administered on 06/13/18at 12:17; Start 06/13/18 at 12:00; Stop 06/13/18 at 12:01; Status DC Albuterol/ Ipratropium (Duoneb) 3 ml RTQID NEB Last administered on 06/13/18at 11 :53; Start 06/13/18 at 12:00 Active Scripts Active Nystop (Nystatin) 60 Gm Powder 1 Bert TP BID MDD 1 Cozaar (Losartan Potassium) 25 Mg Tablet 25 Mg PO DAILY Reported Hydrocodone-Acetamin 5-325 mg (Hydrocodone/Acetaminophen) 1 Each Tablet 1 Each PO PRN Q4HRS PRN Fish Oil + D3 Softgel ([place]-3S/Dha/Epa/Fish Oil/D3) 1 Each Capsule 1 Each PO DAILY Benadryl (Diphenhydramine Hcl) 25 Mg Capsule 25 Mg PO DAILY Famotidine 20 Mg Tablet 20 Mg PO DAILY Aspir-Low (Aspirin) 81 Mg Tablet.dr 81 Mg PO DAILY Furosemide 40 Mg Tablet 40 Mg PO DAILY Coreg (Carvedilol) 6.25 Mg Tablet 6.25 Mg PO BIDWMEALS Potassium Chloride 10 Meq Capsule.er 10 Meq PO DAILY Allergies Allergies: Coded Allergies: No Known Drug Allergies (Unverified , 08/21/15) ROS General: YES: Fatigue Respiratory: YES: Shortness of breath, SOB with excertion Physical Exam General: mild distress Lungs: Other (mildly decreased breath sounds.) Heart: Other (irregularly irregular rhythm.) Abdomen: Normal bowel sounds Vitals VITALS Vital Signs Date Time Temp Pulse Resp B/P (MAP) Pulse Ox O2 Delivery O2 Flow Rate FiO2 06/13/18 11:55 98 Nasal Cannula 1.0 06/13/18 11:00 97.6 70 18 116/79 (91) 97.6 Labs Labs Laboratory Tests Test 06/12/18 10:45 06/12/18 14:42 06/12/18 17:45 06/13/18 08:45 White Blood Count 7.1 x10^3/uL (4.0-11.0) Red Blood Count 4.41 x10^6/uL (3.50-5.40) Hemoglobin 13.0 g/dL (12.0-15.5) Hematocrit 40.0 % (36.0-47.0) Mean Corpuscular Volume 91 fL (79-100) Mean Corpuscular Hemoglobin 30 pg (25-35) Mean Corpuscular Hemoglobin Concent 33 g/dL (31-37) Red Cell Distribution Width 17.4 % (11.5-14.5) Platelet Count 238 x10^3/uL (140-400) Neutrophils (%) (Auto) 71 % (31-73) Lymphocytes (%) (Auto) 18 % (24-48) Monocytes (%) (Auto) 7 % (0-9) Eosinophils (%) (Auto) 3 % (0-3) Basophils (%) (Auto) 1 % (0-3) Neutrophils # (Auto) 5.0 x10^3uL (1.8-7.7) Lymphocytes # (Auto) 1.3 x10^3/uL (1.0-4.8) Monocytes # (Auto) 0.5 x10^3/uL (0.0-1.1) Eosinophils # (Auto) 0.2 x10^3/uL (0.0-0.7) Basophils # (Auto) 0.0 x10^3/uL (0.0-0.2) Prothrombin Time 13.2 SEC (11.7-14.0) Prothromb Time International Ratio 1.0 (0.8-1.1) Sodium Level 144 mmol/L (136-145) 144 mmol/L (136-145) Potassium Level 3.3 mmol/L (3.5-5.1) 4.3 mmol/L (3.5-5.1) Chloride Level 107 mmol/L (98-107) 108 mmol/L (98-107) Carbon Dioxide Level 26 mmol/L (21-32) 29 mmol/L (21-32) Anion Gap 11 (6-14) 7 (6-14) Blood Urea Nitrogen 18 mg/dL (7-20) 22 mg/dL (7-20) Creatinine 1.1 mg/dL (0.6-1.0) 1.2 mg/dL (0.6-1.0) Estimated GFR (Cockcroft-Gault) 47.1 42.6 BUN/Creatinine Ratio 16 (6-20) Glucose Level 165 mg/dL (70-99) 142 mg/dL (70-99) Lactic Acid Level 1.7 mmol/L (0.4-2.0) Calcium Level 9.2 mg/dL (8.5-10.1) 9.1 mg/dL (8.5-10.1) Total Bilirubin 0.8 mg/dL (0.2-1.0) Aspartate Amino Transf (AST/SGOT) 15 U/L (15-37) Alanine Aminotransferase (ALT/SGPT) 16 U/L (14-59) Alkaline Phosphatase 93 U/L (46-116) Troponin I Quantitative 0.076 ng/mL (0.000-0.055) 0.089 ng/mL (0.000-0.055) 0.072 ng/mL (0.000-0.055) OE-Byd-V-Type Natriuretic Peptide 7541 pg/mL (0-449) Total Protein 7.0 g/dL (6.4-8.2) Albumin 2.8 g/dL (3.4-5.0) Albumin/Globulin Ratio 0.7 (1.0-1.7) Magnesium Level 1.8 mg/dL (1.8-2.4) Laboratory Tests Test 06/12/18 14:42 06/12/18 17:45 06/13/18 08:45 Troponin I Quantitative 0.089 ng/mL (0.000-0.055) 0.072 ng/mL (0.000-0.055) Sodium Level 144 mmol/L (136-145) Potassium Level 4.3 mmol/L (3.5-5.1) Chloride Level 108 mmol/L (98-107) Carbon Dioxide Level 29 mmol/L (21-32) Anion Gap 7 (6-14) Blood Urea Nitrogen 22 mg/dL (7-20) Creatinine 1.2 mg/dL (0.6-1.0) Estimated GFR (Cockcroft-Gault) 42.6 Glucose Level 142 mg/dL (70-99) Calcium Level 9.1 mg/dL (8.5-10.1) Magnesium Level 1.8 mg/dL (1.8-2.4) Images Images Chest x-ray shows bilateral opacities. Assessment/Plan Assessment/Plan 1. Acute on chronic heart failure. Patient is feeling better post diuresis. Chest x-ray showed bilateral opacities. We'll continue diuresis and monitor lab. Check echocardiogram. 2. Chronic atrial fibrillation. Rate controlled. Continue medical treatment. 3. COPD. Continue pulmonary medications. History of prolonged tobacco use. Being evaluated by the pulmonary service. 4. Hypertension. Continue present medications and monitoring. Thank you for allowing us to participate in the care of your patient. MIKAL DALY MD Jun 13, 2018 12:52
[2018-06-13 14:42] VITALS: BP 140/72
[2018-06-13] MEDS: HYDROcodone/APAP 5/325MG 1 TAB TABLET PO PRN (15:59)
[2018-06-13 19:35] VITALS: BP 146/81
[2018-06-13] MEDS ORDERED: traZODone 50 MG TABLET. PO PRN (22:00)
[2018-06-13 23:00] VITALS: BP 140/79
[2018-06-14 03:16] VITALS: BP 140/83
[2018-06-14 07:17] VITALS: BP 156/81
[2018-06-14] MEDS: IPRATRPIUM/ALBUTEROL 0.5/2.5MG 3 ML NEBU. NEB SCH ×4 (07:23→20:31)
[2018-06-14] MEDS: FAMOTIDINE 20 MG TABLET. PO SCH (07:55)
[2018-06-14] MEDS: CARVEDILOL 6.25 MG TABLET. PO SCH (07:55)
[2018-06-14] MEDS: ASPIRIN ENTERIC COATED 81 MG TABLET.DR. PO SCH (07:55)
[2018-06-14] MEDS: diphenhydrAMINE HCL 25 MG CAPSULE PO SCH (07:55)
[2018-06-14] MEDS: OMEGA-3 FATTY ACIDS/FISH OIL 1,000 MG CAPSULE. PO SCH (07:55)
[2018-06-14] MEDS: LOSARTAN POTASSIUM 25 MG TABLET. PO SCH (07:56)
[2018-06-14] MEDS: NYSTATIN TOPICAL POWDER 15GM BOTTLE. TP SCH ×2 (07:56→21:27)
[2018-06-14] MEDS: NICOTINE 21MG PATCH. TD SCH (07:57)
[2018-06-14] MEDS: HYDROcodone/APAP 5/325MG 1 TAB TABLET PO PRN (10:07)
--- NOTE | 2018-06-14 10:54 | NUR ---
SS following for discharge planning. SS reviewed pt chart. Pt is from home with family and is currently requiring oxygen. Pt was previously on services with [facility], ; fax [phone]. PT recommending home healthcare. Anne from [facility] aware. SS will continue to follow for discharge planning.
[2018-06-14 11:02] VITALS: BP 151/92
--- NOTE | 2018-06-14 11:58 | CARD ---
MR#: [id number] Date of Study: 06/14/2018 Ordering Physician: DHRUV SEARS, Referring Physician: Bernadette PROCTOR: Chelsea Clements RDCS APPROVED REPORT EXAM: Two-dimensional and M-mode echocardiogram with Doppler and color Doppler. Other Information Quality : Good Rhythm : Atrial Fibrillation INDICATION Congestive Heart Failure 2D DIMENSIONS RVDd2.7 (2.9-3.5cm)Left Atrium(2D)5.2 (1.6-4.0cm) IVSd1.0 (0.7-1.1cm)Aortic Root(2D)2.6 (2.0-3.7cm) LVDd4.1 (3.9-5.9cm)LVOT Diameter2.0 (1.8-2.4cm) PWd1.0 (0.7-1.1cm)LVDs3.3 (2.5-4.0cm) FS (%) 21.4 %SV33.5 ml Aortic Valve AoV Peak Jas.113.0cm/sAoV VTI17.3cm AO Peak GR.5.1mmHgLVOT VTI 10.72cm AO Mean GR.3mmHgAVA (VTI)2.00cm2 Mitral Valve MV E Wnnybqkt38.0cm/sMV DECEL [id number] TDI Lateral E' P. V3.67cm/sE/Lateral E'22.9 Tricuspid Valve TR P. [id number]/sRAP [id number] TR Peak Gr.[id number] LEFT VENTRICLE The left ventricle is normal size. There is normal left ventricular wall thickness. Left ventricle sy stolic function is low normal. The Ejection Fraction is 50-55%. There is normal LV segmental wall mot ion. RIGHT VENTRICLE The right ventricle is normal size. The right ventricular systolic function is normal. ATRIA The left atrium is mildly dilated. The right atrium is mildly dilated. The interatrial septum is inta ct with no evidence for an atrial septal defect or patent foramen ovale as noted on 2-D or Doppler im aging. AORTIC VALVE The aortic valve is calcified but opens well. Doppler and Color Flow revealed no significant aortic r egurgitation. There is no significant aortic valvular stenosis. MITRAL VALVE The mitral valve is calcified but opens well. There is no evidence of mitral valve prolapse. There is no mitral valve stenosis. Doppler and Color-flow revealed mild to moderate mitral regurgitation. TRICUSPID VALVE The tricuspid valve is normal in structure and function. Doppler and Color Flow revealed trace to mil d tricuspid regurgitation. The PA pressure was estimated at 27 mmHg. There is no tricuspid valve sten osis. PULMONIC VALVE The pulmonary valve is normal in structure and function. Doppler and Color Flow revealed trace pulmon ic valvular regurgitation. There is no pulmonic valvular stenosis. GREAT VESSELS The aortic root is normal in size. The ascending aorta is normal in size. The IVC is normal in size a nd collapses >50% with inspiration. PERICARDIAL EFFUSION There is no evidence of significant pericardial effusion. Critical Notification Critical Value: No <Conclusion> The left ventricle is normal size. Left ventricle systolic function is low normal. The Ejection Fraction is 50-55%. There is no significant aortic valvular stenosis. Doppler and Color Flow revealed no significant aortic regurgitation. Doppler and Color-flow revealed mild to moderate mitral regurgitation. Doppler and Color Flow revealed trace to mild tricuspid regurgitation. The PA pressure was estimated at 27 mmHg. Signed by : Sonu Mosley MD Electronically Approved : 06/14/2018 11:58:25
[2018-06-14 12:46] LABS: BASO # 0.1 x10^3/uL (0.0-0.2); BASO % 1 % (0-3); EOS # 0.2 x10^3/uL (0.0-0.7); EOS % 2 % (0-3); HEMATOCRIT 43.1 % (36.0-47.0); HEMOGLOBIN 13.5 g/dL (12.0-15.5); LYMPH # 2.4 x10^3/uL (1.0-4.8); LYMPH % 22 % (24-48); MEAN CORPUSCULAR HEMOGLOBIN 29 pg (25-35); MEAN CORPUSCULAR HGB CONC 31 g/dL (31-37); MEAN CORPUSCULAR VOLUME 93 fL (79-100); MONO # 0.9 x10^3/uL (0.0-1.1); MONO % 8 % (0-9); NEUT # 7.1 x10^3uL (1.8-7.7); NEUT % 67 % (31-73); PLATELET COUNT 216 x10^3/uL (140-400); RED BLOOD COUNT 4.66 x10^6/uL (3.50-5.40); RED CELL DISTRIBUTION WIDTH 17.4 % (11.5-14.5); WHITE BLOOD COUNT 10.6 x10^3/uL (4.0-11.0)
--- NOTE | 2018-06-14 12:47 | PDOC ---
CARDIO Progress Notes Date and Time Date of Service 06/14/18 Time of Evaluation 1110 Subjective Subjective: No Chest Pain, No Palpitations, Other (SOA improved, but persists) Vitals Vitals Vital Signs Date Time Temp Pulse Resp B/P (MAP) Pulse Ox O2 Delivery O2 Flow Rate FiO2 06/14/18 11:19 98 Nasal Cannula 1.0 06/14/18 11:02 97.7 86 16 151/92 (111) 97.7 Weight Weight [ ] Input and Output Intake and Output Intake and Output 06/14/18 07:00 Intake Total 620 ml Output Total 1250 ml Balance -630 ml Intake Oral 620 ml Output Urine Total 1250 ml # Bowel Movements 2 Microbiology Micro Microbiology 06/12/18 Blood Culture - Preliminary, Resulted NO GROWTH AFTER 2 DAYS Physical Exam HEENT: Neck Supple W Full Motion Chest: Symmetric LUNGS: Other (bibasilar crackles) Heart: irregularly irregular (AFIB ) Abdomen: Soft N/T Extremities: No Edema Neurology: alert, follow commands Assessment Assessment 1. Acute on chronic diastolic heart failure; Echo showed LVEF 50-55%. Improved following diuresis. 2. Mild troponin elevation; peak 0.089. most probably type II, demand ischemia. CP free 3. Chronic atrial fibrillation. Rate controlled. 4. Hypertension; mildly elevated 5. AE COPD 6. Tobaccoism; discussed/encouraged cessation Recommendations Additional diuresis Continue BB. Increase for better BP control ASA for stroke prevention as patient poor overall candidate for OAC BARAK STEINBERG APRN Jun 14, 2018 12:47
[2018-06-14 12:55] LABS: GFR 52.6; POTASSIUM 4.1 mmol/L (3.5-5.1)
--- NOTE | 2018-06-14 12:56 | PDOC ---
PULMONARY PROGRESS NOTES Subjective feels better Vitals Vital Signs Date Time Temp Pulse Resp B/P (MAP) Pulse Ox O2 Delivery O2 Flow Rate FiO2 06/14/18 11:19 98 Nasal Cannula 1.0 06/14/18 11:02 97.7 86 16 151/92 (111) 97.7 General: Alert, Oriented X4, No acute distress Lungs: Clear Cardiovascular: S1, S2 Abdomen: Soft, Non-tender Extremities: No Edema Skin: Warm Labs Laboratory Tests Test 06/12/18 14:42 06/12/18 17:45 06/13/18 08:45 06/14/18 12:15 Troponin I Quantitative 0.089 ng/mL (0.000-0.055) 0.072 ng/mL (0.000-0.055) Sodium Level 144 mmol/L (136-145) Potassium Level 4.3 mmol/L (3.5-5.1) Chloride Level 108 mmol/L (98-107) Carbon Dioxide Level 29 mmol/L (21-32) Anion Gap 7 (6-14) Blood Urea Nitrogen 22 mg/dL (7-20) Creatinine 1.2 mg/dL (0.6-1.0) Estimated GFR (Cockcroft-Gault) 42.6 Glucose Level 142 mg/dL (70-99) Calcium Level 9.1 mg/dL (8.5-10.1) Magnesium Level 1.8 mg/dL (1.8-2.4) White Blood Count 10.6 x10^3/uL (4.0-11.0) Red Blood Count 4.66 x10^6/uL (3.50-5.40) Hemoglobin 13.5 g/dL (12.0-15.5) Hematocrit 43.1 % (36.0-47.0) Mean Corpuscular Volume 93 fL (79-100) Mean Corpuscular Hemoglobin 29 pg (25-35) Mean Corpuscular Hemoglobin Concent 31 g/dL (31-37) Red Cell Distribution Width 17.4 % (11.5-14.5) Platelet Count 216 x10^3/uL (140-400) Neutrophils (%) (Auto) 67 % (31-73) Lymphocytes (%) (Auto) 22 % (24-48) Monocytes (%) (Auto) 8 % (0-9) Eosinophils (%) (Auto) 2 % (0-3) Basophils (%) (Auto) 1 % (0-3) Neutrophils # (Auto) 7.1 x10^3uL (1.8-7.7) Lymphocytes # (Auto) 2.4 x10^3/uL (1.0-4.8) Monocytes # (Auto) 0.9 x10^3/uL (0.0-1.1) Eosinophils # (Auto) 0.2 x10^3/uL (0.0-0.7) Basophils # (Auto) 0.1 x10^3/uL (0.0-0.2) Laboratory Tests Test 06/14/18 12:15 White Blood Count 10.6 x10^3/uL (4.0-11.0) Red Blood Count 4.66 x10^6/uL (3.50-5.40) Hemoglobin 13.5 g/dL (12.0-15.5) Hematocrit 43.1 % (36.0-47.0) Mean Corpuscular Volume 93 fL (79-100) Mean Corpuscular Hemoglobin 29 pg (25-35) Mean Corpuscular Hemoglobin Concent 31 g/dL (31-37) Red Cell Distribution Width 17.4 % (11.5-14.5) Platelet Count 216 x10^3/uL (140-400) Neutrophils (%) (Auto) 67 % (31-73) Lymphocytes (%) (Auto) 22 % (24-48) Monocytes (%) (Auto) 8 % (0-9) Eosinophils (%) (Auto) 2 % (0-3) Basophils (%) (Auto) 1 % (0-3) Neutrophils # (Auto) 7.1 x10^3uL (1.8-7.7) Lymphocytes # (Auto) 2.4 x10^3/uL (1.0-4.8) Monocytes # (Auto) 0.9 x10^3/uL (0.0-1.1) Eosinophils # (Auto) 0.2 x10^3/uL (0.0-0.7) Basophils # (Auto) 0.1 x10^3/uL (0.0-0.2) Medications Active Scripts Medications Dose Route/Sig Max Daily Dose Days Date Category Hydrocodone-Acetamin 5-325 mg (Hydrocodone/Acetaminophen) 1 Each Tablet 1 Each PO PRN Q4HRS PRN 06/12/18 Reported Fish Oil + D3 Softgel ([place]-3S/Dha/Epa/Fish Oil/D3) 1 Each Capsule 1 Each PO DAILY 06/12/18 Reported Benadryl (Diphenhydramine Hcl) 25 Mg Capsule 25 Mg PO DAILY 06/12/18 Reported Nystop (Nystatin) 60 Gm Powder 1 Bret TP BID MDD 1 05/21/18 Rx Famotidine 20 Mg Tablet 20 Mg PO DAILY 04/12/18 Reported Aspir-Low (Aspirin) 81 Mg Tablet.dr 81 Mg PO DAILY 04/12/18 Reported Furosemide 40 Mg Tablet 40 Mg PO DAILY 04/12/18 Reported Coreg (Carvedilol) 6.25 Mg Tablet 6.25 Mg PO BIDWMEALS 04/12/18 Reported Cozaar (Losartan Potassium) 25 Mg Tablet 25 Mg PO DAILY 01/28/16 Rx Potassium Chloride 10 Meq Capsule.er 10 Meq PO DAILY 01/23/16 Reported Impression . 1. Acute hypoxic respiratory failure secondary to acute on chronic systolic heart failure. 2. Abnormal chest x-ray consistent with mild interstitial edema. 3. Heavy history of tobacco use, 3 packs per day since teenage years and suspect severe chronic obstructive pulmonary disease. 4. Clinically less likely a component of pneumonia. Plan . RECOMMENDATIONS: 1. Discussed with RN. We will continue present diuresis. 2. echocardiogram with normal EF/ mild -moderate MR 3. Wean off oxygen. 4. off antibiotics .clinically less likely infection. 5. Follow cardiology recommendations. 6. The patient has chronic atrial fibrillation. DHRUV SEARS MD Jun 14, 2018 12:55
[2018-06-14] MEDS ORDERED: FUROSEMIDE 40 MG/4 ML VIAL. IVP ONE (13:00)
[2018-06-14 14:47] VITALS: BP 151/93
--- NOTE | 2018-06-14 15:35 | PDOC ---
PROGRESS NOTES Chief Complaint Chief Complaint [id number] systolic and diastolic heart failure +/- pneumonia hypokalemia hyperglycemia elevated troponin Severe protein calorie malnutrition - albumin 2.8 Plan: Cont diuresis, herrera Wean O2 as tolerated PT/OT, may need placement for recovery from this CHF exacerbation History of Present Illness History of Present Illness Ms Alonso is an 88yo F w/ PMHx COPD, AFib, hypertension, hyperlipidemia, hypothyroidism, chronic knee pain, hypokalemia, right shoulder surgery, right jaw surgery and heavy alcohol abuse who was admitted for worsening shortness of breath, weakness, hypoxia and bilateral opacities on CXR. Patient quite debilitated and feels unsteady. She did not have acute events reported overnight. She still does not feel she has had significant improvement Vitals Vitals Vital Signs Date Time Temp Pulse Resp B/P (MAP) Pulse Ox O2 Delivery O2 Flow Rate FiO2 06/14/18 15:21 Nasal Cannula 1.0 06/14/18 14:47 97.7 96 16 151/93 (112) 98 97.7 Physical Exam General: Alert, Oriented X3, mild distress Heart: Normal S1, Normal S2 Lungs: Crackles Abdomen: Normal bowel sounds Labs LABS Laboratory Tests Test 06/14/18 12:15 White Blood Count 10.6 x10^3/uL (4.0-11.0) Red Blood Count 4.66 x10^6/uL (3.50-5.40) Hemoglobin 13.5 g/dL (12.0-15.5) Hematocrit 43.1 % (36.0-47.0) Mean Corpuscular Volume 93 fL (79-100) Mean Corpuscular Hemoglobin 29 pg (25-35) Mean Corpuscular Hemoglobin Concent 31 g/dL (31-37) Red Cell Distribution Width 17.4 % (11.5-14.5) Platelet Count 216 x10^3/uL (140-400) Neutrophils (%) (Auto) 67 % (31-73) Lymphocytes (%) (Auto) 22 % (24-48) Monocytes (%) (Auto) 8 % (0-9) Eosinophils (%) (Auto) 2 % (0-3) Basophils (%) (Auto) 1 % (0-3) Neutrophils # (Auto) 7.1 x10^3uL (1.8-7.7) Lymphocytes # (Auto) 2.4 x10^3/uL (1.0-4.8) Monocytes # (Auto) 0.9 x10^3/uL (0.0-1.1) Eosinophils # (Auto) 0.2 x10^3/uL (0.0-0.7) Basophils # (Auto) 0.1 x10^3/uL (0.0-0.2) Sodium Level 143 mmol/L (136-145) Potassium Level 4.1 mmol/L (3.5-5.1) Chloride Level 105 mmol/L (98-107) Carbon Dioxide Level 26 mmol/L (21-32) Anion Gap 12 (6-14) Blood Urea Nitrogen 29 mg/dL (7-20) Creatinine 1.0 mg/dL (0.6-1.0) Estimated GFR (Cockcroft-Gault) 52.6 Glucose Level 110 mg/dL (70-99) Calcium Level 9.0 mg/dL (8.5-10.1) Procalcitonin < 0.10 ng/mL (0.00-0.10) Comment Review of Relevant I have reviewed the following items lupe (where applicable) has been applied. Labs Laboratory Tests Test 06/12/18 17:45 06/13/18 08:45 06/14/18 12:15 Troponin I Quantitative 0.072 ng/mL (0.000-0.055) Sodium Level 144 mmol/L (136-145) 143 mmol/L (136-145) Potassium Level 4.3 mmol/L (3.5-5.1) 4.1 mmol/L (3.5-5.1) Chloride Level 108 mmol/L (98-107) 105 mmol/L (98-107) Carbon Dioxide Level 29 mmol/L (21-32) 26 mmol/L (21-32) Anion Gap 7 (6-14) 12 (6-14) Blood Urea Nitrogen 22 mg/dL (7-20) 29 mg/dL (7-20) Creatinine 1.2 mg/dL (0.6-1.0) 1.0 mg/dL (0.6-1.0) Estimated GFR (Cockcroft-Gault) 42.6 52.6 Glucose Level 142 mg/dL (70-99) 110 mg/dL (70-99) Calcium Level 9.1 mg/dL (8.5-10.1) 9.0 mg/dL (8.5-10.1) Magnesium Level 1.8 mg/dL (1.8-2.4) White Blood Count 10.6 x10^3/uL (4.0-11.0) Red Blood Count 4.66 x10^6/uL (3.50-5.40) Hemoglobin 13.5 g/dL (12.0-15.5) Hematocrit 43.1 % (36.0-47.0) Mean Corpuscular Volume 93 fL (79-100) Mean Corpuscular Hemoglobin 29 pg (25-35) Mean Corpuscular Hemoglobin Concent 31 g/dL (31-37) Red Cell Distribution Width 17.4 % (11.5-14.5) Platelet Count 216 x10^3/uL (140-400) Neutrophils (%) (Auto) 67 % (31-73) Lymphocytes (%) (Auto) 22 % (24-48) Monocytes (%) (Auto) 8 % (0-9) Eosinophils (%) (Auto) 2 % (0-3) Basophils (%) (Auto) 1 % (0-3) Neutrophils # (Auto) 7.1 x10^3uL (1.8-7.7) Lymphocytes # (Auto) 2.4 x10^3/uL (1.0-4.8) Monocytes # (Auto) 0.9 x10^3/uL (0.0-1.1) Eosinophils # (Auto) 0.2 x10^3/uL (0.0-0.7) Basophils # (Auto) 0.1 x10^3/uL (0.0-0.2) Procalcitonin < 0.10 ng/mL (0.00-0.10) Laboratory Tests Test 06/14/18 12:15 White Blood Count 10.6 x10^3/uL (4.0-11.0) Red Blood Count 4.66 x10^6/uL (3.50-5.40) Hemoglobin 13.5 g/dL (12.0-15.5) Hematocrit 43.1 % (36.0-47.0) Mean Corpuscular Volume 93 fL (79-100) Mean Corpuscular Hemoglobin 29 pg (25-35) Mean Corpuscular Hemoglobin Concent 31 g/dL (31-37) Red Cell Distribution Width 17.4 % (11.5-14.5) Platelet Count 216 x10^3/uL (140-400) Neutrophils (%) (Auto) 67 % (31-73) Lymphocytes (%) (Auto) 22 % (24-48) Monocytes (%) (Auto) 8 % (0-9) Eosinophils (%) (Auto) 2 % (0-3) Basophils (%) (Auto) 1 % (0-3) Neutrophils # (Auto) 7.1 x10^3uL (1.8-7.7) Lymphocytes # (Auto) 2.4 x10^3/uL (1.0-4.8) Monocytes # (Auto) 0.9 x10^3/uL (0.0-1.1) Eosinophils # (Auto) 0.2 x10^3/uL (0.0-0.7) Basophils # (Auto) 0.1 x10^3/uL (0.0-0.2) Sodium Level 143 mmol/L (136-145) Potassium Level 4.1 mmol/L (3.5-5.1) Chloride Level 105 mmol/L (98-107) Carbon Dioxide Level 26 mmol/L (21-32) Anion Gap 12 (6-14) Blood Urea Nitrogen 29 mg/dL (7-20) Creatinine 1.0 mg/dL (0.6-1.0) Estimated GFR (Cockcroft-Gault) 52.6 Glucose Level 110 mg/dL (70-99) Calcium Level 9.0 mg/dL (8.5-10.1) Procalcitonin < 0.10 ng/mL (0.00-0.10) Microbiology 06/12/18 Blood Culture - Preliminary, Resulted NO GROWTH AFTER 2 DAYS Medications Current Medications Albuterol/ Ipratropium (Duoneb) 3 ml 1X ONCE NEB Last administered on at 10:46; Start 06/12/18 at 10:45; Stop 06/12/18 at 10:49; Status DC Doxycycline Hyclate 100 mg/ Dextrose 100 ml @ 50 mls/hr 1X ONCE IV Last administered on 06/12/18at 11:44; Start 06/12/18 at 12:00; Stop 06/12/18 at 13:59; Status DC Methylprednisolone Sodium Succinate (SOLU-Medrol 125MG VIAL) 125 mg 1X ONCE IV Last administered on 06/12/18 11:43; Start 06/12/18 at 11:45; Stop 06/12/18 at 11:46; Status DC Furosemide (Lasix) 10 mg 1X ONCE IVP Last administered on 06/12/18 11:42; Start 06/12/18 at 11:45; Stop 06/12/18 at 11:46; Status DC Potassium Chloride (KCl Oral Soln) 40 meq 1X ONCE PO Last administered on 11:43; Start 06/12/18 at 11:45; Stop 06/12/18 at 11:46; Status DC Aspirin (Children'S Aspirin) 324 mg 1X ONCE PO Last administered on 06/12/18 11:54; Start 06/12/18 at 12:00; Stop 06/12/18 at 12:01; Status DC Aspirin (Ecotrin) 81 mg DAILY PO Last administered on 06/14/18 07:55; Start 06/13/18 at 09:00 Carvedilol (Coreg) 6.25 mg BIDWMEALS PO Last administered on 06/14/18 07:55; Start 06/12/18 at 17:00 Diphenhydramine HCl (Benadryl) 25 mg DAILY PO Last administered on 06/14/18 07: 55; Start 06/13/18 at 09:00 Famotidine (Pepcid) 20 mg DAILY PO Last administered on 06/14/18 07:55; Start 06/13/18 at 09:00 Acetaminophen/ Hydrocodone Bitart (Lortab 5/325) 1 tab PRN Q4HRS PRN PO PAIN Last administered on 06/14/18 10:07; Start 06/12/18 at 14:15 Losartan Potassium (Cozaar) 25 mg DAILY PO Last administered on 06/14/18 07:56 ; Start 06/13/18 at 09:00 Nystatin (Nystop) 1 bret BID TP Last administered on 06/14/18 07:56; Start at 21:00 Fish Oil (Fish Oil) 1,000 mg DAILY PO Last administered on 06/14/18 07:55; Start 06/13/18 at 09:00 Furosemide (Lasix) 20 mg 1X ONCE IVP Last administered on 06/12/18 14:19; Start 06/12/18 at 14:15; Stop 06/12/18 at 14:16; Status DC Potassium Chloride (Klor-Con) 30 meq 1X ONCE PO Last administered on 06/12/18 14:19; Start 06/12/18 at 14:15; Stop 06/12/18 at 14:16; Status DC Nicotine (Nicoderm Cq 21mg) 1 patch DAILY TD Last administered on 06/14/18 07: 57; Start 06/12/18 at 14:15 Guaifenesin (Robitussin Dm) 10 ml PRN Q6HRS PRN PO COUGH Last administered on 21:22; Start 06/12/18 at 21:00 Clonidine HCl (Catapres) 0.2 mg PRN Q1HR PRN PO HYPERTENSION, SEE COMMENTS Last administered on 06/12/18 21:22; Start 06/12/18 at 21:00 Furosemide (Lasix) 20 mg 1X ONCE IVP Last administered on 06/13/18 12:17; Start 06/13/18 at 12:00; Stop 06/13/18 at 12:01; Status DC Albuterol/ Ipratropium (Duoneb) 3 ml RTQID NEB Last administered on 06/14/18 15 :20; Start 06/13/18 at 12:00 Trazodone HCl (Desyrel) 50 mg PRN QHS PRN PO INSOMNIA Last administered on 22:20; Start 06/13/18 at 22:00 Furosemide (Lasix) 40 mg 1X ONCE IVP Last administered on 06/14/18 13:31; Start 06/14/18 at 13:00; Stop 06/14/18 at 13:01; Status DC Active Scripts Active Nystop (Nystatin) 60 Gm Powder 1 Bret TP BID MDD 1 Cozaar (Losartan Potassium) 25 Mg Tablet 25 Mg PO DAILY Reported Hydrocodone-Acetamin 5-325 mg (Hydrocodone/Acetaminophen) 1 Each Tablet 1 Each PO PRN Q4HRS PRN Fish Oil + D3 Softgel ([place]-3S/Dha/Epa/Fish Oil/D3) 1 Each Capsule 1 Each PO DAILY Benadryl (Diphenhydramine Hcl) 25 Mg Capsule 25 Mg PO DAILY Famotidine 20 Mg Tablet 20 Mg PO DAILY Aspir-Low (Aspirin) 81 Mg Tablet.dr 81 Mg PO DAILY Furosemide 40 Mg Tablet 40 Mg PO DAILY Coreg (Carvedilol) 6.25 Mg Tablet 6.25 Mg PO BIDWMEALS Potassium Chloride 10 Meq Capsule.er 10 Meq PO DAILY Vitals/I & O Vital Sign - Last 24 Hours 06/13/18 06/13/18 06/13/18 06/13/18 15:59 16:59 17:13 19:35 Temp 97.7 97.7 Pulse 93 78 Resp 18 16 18 B/P (MAP) 140/72 146/81 (102) Pulse Ox 99 O2 Delivery Room Air Nasal Cannula Nasal Cannula O2 Flow Rate 2.0 2.0 06/13/18 06/13/18 06/13/18 06/14/18 19:40 19:52 23:00 03:16 Temp 97.9 98.1 97.9 98.1 Pulse 78 72 Resp 18 16 B/P (MAP) 140/79 (99) 140/83 (102) Pulse Ox 99 99 98 O2 Delivery Nasal Cannula Nasal Cannula Nasal Cannula Nasal Cannula O2 Flow Rate 1.0 2.0 2.0 2.0 06/14/18 06/14/18 06/14/18 06/14/18 07:17 07:23 07:55 07:56 Temp 97.6 97.6 Pulse 74 75 75 Resp 16 B/P (MAP) 156/81 (106) Pulse Ox 98 98 O2 Delivery Nasal Cannula Nasal Cannula O2 Flow Rate 2.0 1.0 06/14/18 06/14/18 06/14/18 06/14/18 08:00 11:02 11:19 14:47 Temp 97.7 97.7 97.7 97.7 Pulse 86 96 Resp 16 16 B/P (MAP) 151/92 (111) 151/93 (112) Pulse Ox 98 98 98 O2 Delivery Nasal Cannula Nasal Cannula Nasal Cannula Nasal Cannula O2 Flow Rate 2.0 2.0 1.0 2.0 06/14/18 15:21 O2 Delivery Nasal Cannula O2 Flow Rate 1.0 Intake and Output 06/13/18 06/13/18 06/14/18 15:00 23:00 07:00 Intake Total 60 ml 560 ml Output Total 950 ml 300 ml Balance 60 ml -390 ml -300 ml LEIDY WELCH MD Jun 14, 2018 15:35
[2018-06-14] MEDS: CARVEDILOL 12.5 MG TABLET. PO SCH (18:21)
[2018-06-14 19:14] VITALS: BP 114/84
[2018-06-14 22:47] VITALS: BP 135/81
[2018-06-15 02:45] VITALS: BP 133/80
[2018-06-15 07:00] VITALS: BP 163/85
[2018-06-15] MEDS: IPRATRPIUM/ALBUTEROL 0.5/2.5MG 3 ML NEBU. NEB SCH ×2 (07:48→11:39)
[2018-06-15] MEDS: diphenhydrAMINE HCL 25 MG CAPSULE PO SCH (08:04)
[2018-06-15] MEDS: FAMOTIDINE 20 MG TABLET. PO SCH (08:04)
[2018-06-15] MEDS: ASPIRIN ENTERIC COATED 81 MG TABLET.DR. PO SCH (08:05)
[2018-06-15] MEDS: OMEGA-3 FATTY ACIDS/FISH OIL 1,000 MG CAPSULE. PO SCH (08:05)
[2018-06-15] MEDS: HYDROcodone/APAP 5/325MG 1 TAB TABLET PO PRN (08:05)
[2018-06-15] MEDS: CARVEDILOL 12.5 MG TABLET. PO SCH (08:06)
[2018-06-15] MEDS: LOSARTAN POTASSIUM 25 MG TABLET. PO SCH (08:06)
[2018-06-15] MEDS: NICOTINE 21MG PATCH. TD SCH (08:06)
[2018-06-15] MEDS: NYSTATIN TOPICAL POWDER 15GM BOTTLE. TP SCH (08:07)
--- NOTE | 2018-06-15 08:16 | NUR ---
SS following up with discharge planning. PT recommended nursing home unit. SS met with pt and pt's family in room and pt and pt's family declined nursing home unit stating that family performs all ADLS for pt at home and pt does not ambulate without assistance from family. Pt's family reported that pt only needs to go as far as her lift chair to the commode and they assist her with that task. Pt's family reported that pt was on services with [facility] at home and would like to return to home with [facility]. Pt's RN notified.
[2018-06-15] MEDS ORDERED: IPRA3AMP29 NEB (08:19)
[2018-06-15] MEDS ORDERED: CARV12.511 PO (08:19)
--- NOTE | 2018-06-15 08:20 | SNU/HH DC ---
DISCHARGE WITH HOME HEALTH DISCHARGE INFORMATION: Discharge Date: Jun 15, 2018 Condition on Discharge: Stable CODE STATUS: Code Status: Full HOME HEALTH: Face to Face: I certify this patient is under my care and that I, or a nurse practitioner or physician's dental hygiene administrative assistant working with me, had a face to face encounter that meets the physician face to face encounter requirements with this patient on []. Medical Complications: CHF, COPD RN For Eval/Treatment: Yes Physical Therapy For: Evalulation/Treatment Occupational Therapy For: Evaluation/Treatment Speech Language Pathology For: Evaluation/Treatment Home Health Aide For: Self-care ORCHARD PRUNER For: Community Resources Pt Meets Homebound Status: Extreme weakness w/ amb. POST DISCHARGE ORDERS: Activity Instructions for Disc: Activity as tolerated Weight Bearing Status after Di: As tolerated DIET AFTER DISCHARGE: Cardiac Wound/Incision Care: Change dressing CHECKS AFTER DISCHARGE: Checks after discharge: Check blood press - daily FOLLOW-UP: PCP to follow Home Health: ff up pcp 4 weeks upn dc - re copd and chf TREATMENT/EQUIPMENT ORDERS: Adaptive Equipment Issued: None CERTIFICATION STATEMENT: Certification Statement: Certification Statement: Based on the above finding, I certify that this patient is confined to the home and needs intermittent fci care, physical therapy and/or speech therapy, or continues to need occupational therapy.~ This patient is under my care, and I have initiated the establishment of the plan of care.~ This patient will be followed by myself or a community physician who will periodically review the plan of care. Home Meds Active Scripts Ipratropium/Albuterol Sulfate (DUONEB 0.5-3(2.5) MG/3 ML) 3 Ml Ampul.neb, 3 ML NEB RTQID for soa MDD 1, #60 EACH Prov:MELANI HICKS MD 06/15/18 Carvedilol (CARVEDILOL ) 12.5 Mg Tablet, 12.5 MG PO BIDWMEALS for htn MDD 1, # 60 TAB Prov:MELANI HICKS MD 06/15/18 Nystatin (NYSTOP) 60 Gm Powder, 1 MI TP BID for folds MDD 1, #1 MISC Prov:MELANI HICKS MD 05/21/18 Losartan Potassium (COZAAR ) 25 Mg Tablet, 25 MG PO DAILY, #30 TAB Prov:JESUS MILLAN MD 01/28/16 Reported Medications Hydrocodone/Acetaminophen (Hydrocodone-Acetamin 5-325 mg) 1 Each Tablet, 1 EACH PO PRN Q4HRS PRN for PAIN, TAB 06/12/18 [place]-3S/Dha/Epa/Fish Oil/D3 (FISH OIL + D3 SOFTGEL) 1 Each Capsule, 1 EACH PO DAILY for vitamin, CAP 06/12/18 Diphenhydramine Hcl (BENADRYL) 25 Mg Capsule, 25 MG PO DAILY for allergies, CAP 06/12/18 Famotidine (FAMOTIDINE) 20 Mg Tablet, 20 MG PO DAILY for acid reflux, TAB 04/12/18 Aspirin (ASPIR-LOW) 81 Mg Tablet.dr, 81 MG PO DAILY for heart health, TAB.SR 04/12/18 Furosemide (FUROSEMIDE) 40 Mg Tablet, 40 MG PO DAILY for diuretic, TAB 04/12/18 Carvedilol (COREG ) 6.25 Mg Tablet, 6.25 MG PO BIDWMEALS for CARDIAC, TAB 04/12/18 Potassium Chloride (POTASSIUM CHLORIDE) 10 Meq Capsule.er, 10 MEQ PO DAILY, TAB.SR 01/23/16 MELANI HICKS MD Jun 15, 2018 08:20
--- NOTE | 2018-06-15 08:32 | PDOC ---
PULMONARY PROGRESS NOTES Subjective feels better Vitals Vital Signs Date Time Temp Pulse Resp B/P (MAP) Pulse Ox O2 Delivery O2 Flow Rate FiO2 06/15/18 08:06 107 163/85 06/15/18 08:05 Room Air 06/15/18 07:48 98 06/15/18 07:00 97.9 16 97.9 06/15/18 02:45 2.0 General: Alert, Oriented X4, No acute distress Lungs: Crackles Cardiovascular: S1, S2 Abdomen: Soft, Non-tender Extremities: No Edema Skin: Warm Labs Laboratory Tests Test 06/13/18 08:45 06/14/18 12:15 Sodium Level 144 mmol/L (136-145) 143 mmol/L (136-145) Potassium Level 4.3 mmol/L (3.5-5.1) 4.1 mmol/L (3.5-5.1) Chloride Level 108 mmol/L (98-107) 105 mmol/L (98-107) Carbon Dioxide Level 29 mmol/L (21-32) 26 mmol/L (21-32) Anion Gap 7 (6-14) 12 (6-14) Blood Urea Nitrogen 22 mg/dL (7-20) 29 mg/dL (7-20) Creatinine 1.2 mg/dL (0.6-1.0) 1.0 mg/dL (0.6-1.0) Estimated GFR (Cockcroft-Gault) 42.6 52.6 Glucose Level 142 mg/dL (70-99) 110 mg/dL (70-99) Calcium Level 9.1 mg/dL (8.5-10.1) 9.0 mg/dL (8.5-10.1) Magnesium Level 1.8 mg/dL (1.8-2.4) White Blood Count 10.6 x10^3/uL (4.0-11.0) Red Blood Count 4.66 x10^6/uL (3.50-5.40) Hemoglobin 13.5 g/dL (12.0-15.5) Hematocrit 43.1 % (36.0-47.0) Mean Corpuscular Volume 93 fL (79-100) Mean Corpuscular Hemoglobin 29 pg (25-35) Mean Corpuscular Hemoglobin Concent 31 g/dL (31-37) Red Cell Distribution Width 17.4 % (11.5-14.5) Platelet Count 216 x10^3/uL (140-400) Neutrophils (%) (Auto) 67 % (31-73) Lymphocytes (%) (Auto) 22 % (24-48) Monocytes (%) (Auto) 8 % (0-9) Eosinophils (%) (Auto) 2 % (0-3) Basophils (%) (Auto) 1 % (0-3) Neutrophils # (Auto) 7.1 x10^3uL (1.8-7.7) Lymphocytes # (Auto) 2.4 x10^3/uL (1.0-4.8) Monocytes # (Auto) 0.9 x10^3/uL (0.0-1.1) Eosinophils # (Auto) 0.2 x10^3/uL (0.0-0.7) Basophils # (Auto) 0.1 x10^3/uL (0.0-0.2) Procalcitonin < 0.10 ng/mL (0.00-0.10) Laboratory Tests Test 06/14/18 12:15 White Blood Count 10.6 x10^3/uL (4.0-11.0) Red Blood Count 4.66 x10^6/uL (3.50-5.40) Hemoglobin 13.5 g/dL (12.0-15.5) Hematocrit 43.1 % (36.0-47.0) Mean Corpuscular Volume 93 fL (79-100) Mean Corpuscular Hemoglobin 29 pg (25-35) Mean Corpuscular Hemoglobin Concent 31 g/dL (31-37) Red Cell Distribution Width 17.4 % (11.5-14.5) Platelet Count 216 x10^3/uL (140-400) Neutrophils (%) (Auto) 67 % (31-73) Lymphocytes (%) (Auto) 22 % (24-48) Monocytes (%) (Auto) 8 % (0-9) Eosinophils (%) (Auto) 2 % (0-3) Basophils (%) (Auto) 1 % (0-3) Neutrophils # (Auto) 7.1 x10^3uL (1.8-7.7) Lymphocytes # (Auto) 2.4 x10^3/uL (1.0-4.8) Monocytes # (Auto) 0.9 x10^3/uL (0.0-1.1) Eosinophils # (Auto) 0.2 x10^3/uL (0.0-0.7) Basophils # (Auto) 0.1 x10^3/uL (0.0-0.2) Sodium Level 143 mmol/L (136-145) Potassium Level 4.1 mmol/L (3.5-5.1) Chloride Level 105 mmol/L (98-107) Carbon Dioxide Level 26 mmol/L (21-32) Anion Gap 12 (6-14) Blood Urea Nitrogen 29 mg/dL (7-20) Creatinine 1.0 mg/dL (0.6-1.0) Estimated GFR (Cockcroft-Gault) 52.6 Glucose Level 110 mg/dL (70-99) Calcium Level 9.0 mg/dL (8.5-10.1) Procalcitonin < 0.10 ng/mL (0.00-0.10) Medications Active Scripts Medications Dose Route/Sig Max Daily Dose Days Date Category Hydrocodone-Acetamin 5-325 mg (Hydrocodone/Acetaminophen) 1 Each Tablet 1 Each PO PRN Q4HRS PRN 06/12/18 Reported Fish Oil + D3 Softgel ([place]-3S/Dha/Epa/Fish Oil/D3) 1 Each Capsule 1 Each PO DAILY 06/12/18 Reported Benadryl (Diphenhydramine Hcl) 25 Mg Capsule 25 Mg PO DAILY 06/12/18 Reported Nystop (Nystatin) 60 Gm Powder 1 Bret TP BID MDD 1 05/21/18 Rx Famotidine 20 Mg Tablet 20 Mg PO DAILY 04/12/18 Reported Aspir-Low (Aspirin) 81 Mg Tablet.dr 81 Mg PO DAILY 04/12/18 Reported Furosemide 40 Mg Tablet 40 Mg PO DAILY 04/12/18 Reported Coreg (Carvedilol) 6.25 Mg Tablet 6.25 Mg PO BIDWMEALS 04/12/18 Reported Cozaar (Losartan Potassium) 25 Mg Tablet 25 Mg PO DAILY 01/28/16 Rx Potassium Chloride 10 Meq Capsule.er 10 Meq PO DAILY 01/23/16 Reported Impression . 1. Acute hypoxic respiratory failure secondary to acute on chronic systolic heart failure. 2. Abnormal chest x-ray consistent with mild interstitial edema. 3. Heavy history of tobacco use, 3 packs per day since teenage years and suspect severe chronic obstructive pulmonary disease. 4. Clinically less likely a component of pneumonia. Plan . RECOMMENDATIONS: 1. Discussed with RN. We will continue present diuresis. 2. echocardiogram with normal EF/ mild -moderate MR 3. Wean off oxygen. 4. off antibiotics .clinically less likely infection. 5. Follow cardiology recommendations. 6. The patient has chronic atrial fibrillation. BENJIE COURTNEY MD Jun 15, 2018 08:32
--- NOTE | 2018-06-15 08:58 | PDOC3 ---
Discharge Summary Visit Information Date of Admission: Jun 12, 2018 Date of Discharge: Jun 15, 2018 Admitting Diagnosis Comment: 1. Acute hypoxic respiratory failure secondary to acute on chronic systolic heart failure. 2. Abnormal chest x-ray consistent with mild interstitial edema. 3. Heavy history of tobacco use, 3 packs per day since teenage years and suspect severe chronic obstructive pulmonary disease. 4. Clinically less likely a component of pneumonia. 5. Chronic A. fib and poor OAC candidate Diastolic heart failure with normal EF but moderate MR Generalized weakness-SNU candidate, family wants home health Full code Brief Hospital Course Allergies Allergies Coded Allergies Type Severity Reaction Last Updated Verified No Known Drug Allergies 08/21/15 No Vital Signs Vital Signs Date Time Temp Pulse Resp B/P (MAP) Pulse Ox O2 Delivery O2 Flow Rate FiO2 06/15/18 08:06 107 163/85 06/15/18 08:05 Room Air 06/15/18 07:48 98 06/15/18 07:00 97.9 16 97.9 06/15/18 02:45 2.0 Lab Results Laboratory Tests Test 06/14/18 12:15 White Blood Count 10.6 x10^3/uL (4.0-11.0) Red Blood Count 4.66 x10^6/uL (3.50-5.40) Hemoglobin 13.5 g/dL (12.0-15.5) Hematocrit 43.1 % (36.0-47.0) Mean Corpuscular Volume 93 fL (79-100) Mean Corpuscular Hemoglobin 29 pg (25-35) Mean Corpuscular Hemoglobin Concent 31 g/dL (31-37) Red Cell Distribution Width 17.4 % (11.5-14.5) Platelet Count 216 x10^3/uL (140-400) Neutrophils (%) (Auto) 67 % (31-73) Lymphocytes (%) (Auto) 22 % (24-48) Monocytes (%) (Auto) 8 % (0-9) Eosinophils (%) (Auto) 2 % (0-3) Basophils (%) (Auto) 1 % (0-3) Neutrophils # (Auto) 7.1 x10^3uL (1.8-7.7) Lymphocytes # (Auto) 2.4 x10^3/uL (1.0-4.8) Monocytes # (Auto) 0.9 x10^3/uL (0.0-1.1) Eosinophils # (Auto) 0.2 x10^3/uL (0.0-0.7) Basophils # (Auto) 0.1 x10^3/uL (0.0-0.2) Sodium Level 143 mmol/L (136-145) Potassium Level 4.1 mmol/L (3.5-5.1) Chloride Level 105 mmol/L (98-107) Carbon Dioxide Level 26 mmol/L (21-32) Anion Gap 12 (6-14) Blood Urea Nitrogen 29 mg/dL (7-20) Creatinine 1.0 mg/dL (0.6-1.0) Estimated GFR (Cockcroft-Gault) 52.6 Glucose Level 110 mg/dL (70-99) Calcium Level 9.0 mg/dL (8.5-10.1) Procalcitonin < 0.10 ng/mL (0.00-0.10) Laboratory Tests Test 06/14/18 12:15 White Blood Count 10.6 x10^3/uL (4.0-11.0) Red Blood Count 4.66 x10^6/uL (3.50-5.40) Hemoglobin 13.5 g/dL (12.0-15.5) Hematocrit 43.1 % (36.0-47.0) Mean Corpuscular Volume 93 fL (79-100) Mean Corpuscular Hemoglobin 29 pg (25-35) Mean Corpuscular Hemoglobin Concent 31 g/dL (31-37) Red Cell Distribution Width 17.4 % (11.5-14.5) Platelet Count 216 x10^3/uL (140-400) Neutrophils (%) (Auto) 67 % (31-73) Lymphocytes (%) (Auto) 22 % (24-48) Monocytes (%) (Auto) 8 % (0-9) Eosinophils (%) (Auto) 2 % (0-3) Basophils (%) (Auto) 1 % (0-3) Neutrophils # (Auto) 7.1 x10^3uL (1.8-7.7) Lymphocytes # (Auto) 2.4 x10^3/uL (1.0-4.8) Monocytes # (Auto) 0.9 x10^3/uL (0.0-1.1) Eosinophils # (Auto) 0.2 x10^3/uL (0.0-0.7) Basophils # (Auto) 0.1 x10^3/uL (0.0-0.2) Sodium Level 143 mmol/L (136-145) Potassium Level 4.1 mmol/L (3.5-5.1) Chloride Level 105 mmol/L (98-107) Carbon Dioxide Level 26 mmol/L (21-32) Anion Gap 12 (6-14) Blood Urea Nitrogen 29 mg/dL (7-20) Creatinine 1.0 mg/dL (0.6-1.0) Estimated GFR (Cockcroft-Gault) 52.6 Glucose Level 110 mg/dL (70-99) Calcium Level 9.0 mg/dL (8.5-10.1) Procalcitonin < 0.10 ng/mL (0.00-0.10) Brief Hospital Course Ms. Alonso is a 88 old female who was lots of comorbidities namely chronic A. fib, poor OAC candidate because of falls, geriatric, elderly. Lives at home but 2 sons bedside or nearby. Comes in because of one of her exacerbations of her medical issues namely COPD and diastolic heart failure. Echo shows preserved EF with moderate MR. She is getting Lasix 20 once a day at home along with potassium supplements 10 mg once a day. SOme leg swelling, chronic too Cardiology had to increase her Coreg from 12.5 to 25 by mouth twice a day I have discussed these changes with 2 sons at bedside. Patient is a full code. PT recommended SNU but sons agreeable to home health. We are arranging for home health consults performed pulmonary/cards Procedures performed echo-so far they have been holding Lasix here because of creatinine that was 1.4 on admission and on discharge 1.0 I do believe she will benefit from a touch of Lasix small dose even at home. And I have discussed his findings with the 2 sons DC time 31 minutes greater than 50% DC education counseling Discharge instructions follow-up with PCP Dr. Carvajal 4 weeks Follow-up with cardiology as instructed Discharge Information Condition at Discharge: Improved, Stable Follow Up: Weeks (pcp [address] campbell) Disposition/Orders: D/C to Home w/ HH Scheduled Aspirin (Aspir-Low) 81 Mg Tablet., 81 MG PO DAILY for heart health, (Reported) Entered as Reported by: OSBALDO STROUD on 04/12/18 125 Last Action: Continued on 06/12/181403 by THANG HUI Carvedilol (Coreg ) 6.25 Mg Tablet, 6.25 MG PO BIDWMEALS for CARDIAC, ( Reported) Entered as Reported by: OSBALDO STROUD on 04/12/18 125 Last Action: Continued on 06/12/181403 by THANG HUI Carvedilol (Carvedilol ) 12.5 Mg Tablet, 12.5 MG PO BIDWMEALS for htn MDD 1, # 60 Prescribed by: MELANI HICKS on 06/15/18818 Diphenhydramine Hcl (Benadryl) 25 Mg Capsule, 25 MG PO DAILY for allergies, ( Reported) Entered as Reported by: THANG HUI on 06/12/18 1305 Last Taken: Unknown Dose on Unknown Date & Time Last Action: Continued on 06/12/181403 by THANG HUI Famotidine (Famotidine) 20 Mg Tablet, 20 MG PO DAILY for acid reflux, (Reported) Entered as Reported by: OSBALDO STROUD on 04/12/18 125 Last Action: Continued on 06/12/181403 by THANG HUI Furosemide (Furosemide) 40 Mg Tablet, 40 MG PO DAILY for diuretic, (Reported) Entered as Reported by: OSBALDO STROUD on 04/12/181258 Ipratropium/Albuterol Sulfate (Duoneb 0.5-3(2.5) Mg/3 Ml) 3 Ml Ampul.neb, 3 ML NEB RTQID for soa MDD 1, #60 Prescribed by: MELANI HICKS on 06/15/18818 Losartan Potassium (Cozaar ) 25 Mg Tablet, 25 MG PO DAILY, #30 Prescribed by: JESUS MILLAN MD on 01/28/16 1415 Last Action: Continued on 06/12/181403 by THANG HUI Nystatin (Nystop) 60 Gm Powder, 1 MI TP BID for folds MDD 1, #1 Prescribed by: MELANI HICKS on 05/21/18 0857 Last Action: Continued on 06/12/181403 by THANG HUI [place]-3S/Dha/Epa/Fish Oil/D3 (Fish Oil + D3 Softgel) 1 Each Capsule, 1 EACH PO DAILY for vitamin, (Reported) Entered as Reported by: THANG HUI on 06/12/18 1305 Last Taken: Unknown Dose on Unknown Date & Time Last Action: Converted on 06/12/181403 by THANG HUI Potassium Chloride (Potassium Chloride) 10 Meq Capsule.er, 10 MEQ PO DAILY, ( Reported) Entered as Reported by: Sun Fernandez on 01/23/162120 Scheduled PRN Hydrocodone/Acetaminophen (Hydrocodone-Acetamin 5-325 mg) 1 Each Tablet, 1 EACH PO PRN Q4HRS PRN for PAIN, (Reported) Entered as Reported by: THANG HUI on 06/12/181403 Last Taken: Unknown Dose on Unknown Date & Time Last Action: Continued on 06/12/181403 by MELANI WHITING MD Jun 15, 2018 08:58
--- NOTE | 2018-06-15 09:05 | NUR ---
SS following up with discharge planning. SS phoned and faxed discharge orders and referral to [facility], ; fax [phone]. Pt's RN notified.
[2018-06-15 10:42] VITALS: BP 131/76
== END 2018-06-15 12:19 | disposition home health service (06) | DRG 291 ==
LOC: ER 10:16 → 2 SOUTH 11:30
PROVIDERS: ADMIT Internal Medicine; ATTEND Internal Medicine
DX: I11.0 Hypertensive heart disease with heart failure (principal); J96.01 Acute respiratory failure with hypoxia; E43 Unspecified severe protein-calorie malnutrition; I42.9 Cardiomyopathy, unspecified; E03.9 Hypothyroidism, unspecified; G89.29 Other chronic pain; I48.2 Chronic atrial fibrillation; E78.5 Hyperlipidemia, unspecified; K21.9 Gastro-esophageal reflux disease without esophagitis; M19.90 Unspecified osteoarthritis, unspecified site; E87.6 Hypokalemia; Z87.891 Personal history of nicotine dependence; Z82.49 Family history of ischemic heart disease and other diseases of the circulatory system; Z68.25 Body mass index [BMI] 25.0-25.9, adult; I50.23 Acute on chronic systolic (congestive) heart failure; J44.9 Chronic obstructive pulmonary disease, unspecified
CPT/HCPCS: 36415; 71045; 80048; 80053; 83605; 83735; 83880; 84145; 84484; 85025; 85610; 87040; 93005; 93306; 94640; 94760; 96365; 96375; 99406; J1940; J2930; J3490; J7620; Q0163; 97110; 99285-25

== ENCOUNTER 2018-06-23 14:10 | Inpatient (IN) | payer MEDICARE ==
[~2018-06-23] VITALS: Ht 172.7 cm; Wt 59.4 kg
[~2018-06-23 14:10] MED LIST changes: +DIPH25CA58 PO; +HYDR-2759 PO; +IPRA3AMP29 NEB; +OMEG-57 PO
--- NOTE | 2018-06-23 15:16 | PHYS DOC ---
Past Medical History Past Medical History: A-Fib, Hypertension, Hypothyroid, Other Additional Past Medical Histor: CHRONIC KNEE PAIN, HYPOKALEMIA Past Surgical History: Other Additional Past Surgical Histo: Right shoulder,R GLAND/JAW Additional Information: 3PPD Alcohol Use: Heavy Drug Use: None Adult General Chief Complaint Chief Complaint: SHORTNESS OF BREATH HPI HPI Patient is a 88 year old male who presents with shortness of breath. Patient's son who is present at bedside states that the patient has had three nebulizer treatments today with temporary relief. Patient states that she noticed her shortness of breath is worse with laying flat. Upon arrival, patient is complaining of feeling weak. Patient states that her shortness of breath is improved. Per son, the patient has been very fatigued today. Patient's son states that the patient was admitted to [facility] a few weeks ago where she was diagnosed with congestive heart failure. Patient is on Lasix 40mg/daily. Review of Systems Review of Systems Constitutional: Denies fever or chills Eyes: Denies change in visual acuity, or eye pain HENT: Denies nasal congestion or sore throat Respiratory: Denies cough or shortness of breath Cardiovascular: Denies chest pain or palpitations GI: Denies abdominal pain, nausea, vomiting or diarrhea : Denies dysuria or hematuria Musculoskeletal: Denies back pain or joint pain Integument: Denies rash or skin lesions Neurologic: Denies headache, focal weakness or sensory changes Complete systems were reviewed and found to be within normal limits, except as documented in this note. Current Medications Current Medications Current Medications Medications (Trade) Dose Ordered Sig/Ramón Start Time Stop Time Status Last Admin Dose Admin Aspirin (Neel Aspirin) 325 mg 1X ONCE 06/23/18 15:30 06/23/18 15:31 DC 06/23/18 15:44 325 MG Dexamethasone Sodium Phosphate (Decadron) 10 mg 1X ONCE 06/23/18 15:30 06/23/18 15:31 DC Allergies Allergies Allergies Coded Allergies Type Severity Reaction Last Updated Verified No Known Drug Allergies 08/21/15 No Physical Exam Physical Exam Constitutional: awake, alert, but fatigued HENT: Normocephalic, atraumatic, oropharynx moist, nose normal. Eyes: PERRL, conjunctiva normal, no discharge. Neck: Normal range of motion, supple, no stridor. Cardiovascular: Irregularly irregular rhythm. Lungs & Thorax: Mild wheezing in the left upper lung field. Nasal cannula in place. Abdomen: Soft, no tenderness on palpation Skin: Warm, dry, no rash. Back: No midline tenderness, no CVA tenderness. Extremities: No tenderness, ROM intact, lower extremity edema Neurologic: Alert and oriented X3, no focal deficits noted. Psychologic: Affect normal. Speech normal. Current Patient Data Vital Signs Vital Signs Date Time Temp Pulse Resp B/P (MAP) Pulse Ox O2 Delivery O2 Flow Rate FiO2 06/23/18 16:02 98 131/79 (96) 100 Nasal Cannula 1.0 06/23/18 15:45 22 06/23/18 14:10 97.7 97.7 Lab Values Laboratory Tests Test 06/23/18 14:30 White Blood Count 7.9 x10^3/uL (4.0-11.0) Red Blood Count 4.82 x10^6/uL (3.50-5.40) Hemoglobin 14.1 g/dL (12.0-15.5) Hematocrit 43.8 % (36.0-47.0) Mean Corpuscular Volume 91 fL (79-100) Mean Corpuscular Hemoglobin 29 pg (25-35) Mean Corpuscular Hemoglobin Concent 32 g/dL (31-37) Red Cell Distribution Width 16.2 % (11.5-14.5) H Platelet Count 228 x10^3/uL (140-400) Neutrophils (%) (Auto) 56 % (31-73) Lymphocytes (%) (Auto) 29 % (24-48) Monocytes (%) (Auto) 7 % (0-9) Eosinophils (%) (Auto) 7 % (0-3) H Basophils (%) (Auto) 1 % (0-3) Neutrophils # (Auto) 4.5 x10^3uL (1.8-7.7) Lymphocytes # (Auto) 2.3 x10^3/uL (1.0-4.8) Monocytes # (Auto) 0.6 x10^3/uL (0.0-1.1) Eosinophils # (Auto) 0.5 x10^3/uL (0.0-0.7) Basophils # (Auto) 0.1 x10^3/uL (0.0-0.2) Laboratory Tests 06/23/18 14:30 EKG EKG @ 1527 Afib at 89bpm, NO ST elevation Radiology/Procedures Radiology/Procedures PROCEDURE: CHEST PA & LATERAL CHEST PA LATERAL Clinical indications: short of air and dyspnea. COMPARISON: June 12, 2018. Findings: The previously seen bilateral interstitial pulmonary edema has cleared. The previously seen small bilateral pleural effusions have cleared. No pneumothorax is seen. The heart size is enlarged but stable. Mediastinum is unchanged. The pulmonary vasculature is unremarkable. IMPRESSION: Clearing of bilateral pulmonary edema and pleural effusions. Electronically signed by: Andrew Torres MD (06/23/2018 3:50 PM) [facility] Course & Med Decision Making Course & Med Decision Making Patient is an 88 year old female who presents to the ED for evaluation of shortness of breath. Patient treated with ASA and dexamethasone in the ED. Pertinent Labs and Imaging studies reviewed. (See chart for details). UA is significant for a UTI. 1g Rocephin IM ordered. A dose of Bumex given. Patient requiring admission for further evaluation and treatment. Discussed with (hospitalist) who is in agreement with admission. Discussed findings and plan with patient and family, who acknowledge understanding and agreement. Dragon Disclaimer Dragon Disclaimer This electronic medical record was generated, in whole or in part, using a voice recognition dictation system. Departure Departure Impression: Primary Impression: CHF exacerbation Additional Impressions: Hypoxia UTI (urinary tract infection) Disposition: 09 ADMITTED INPATIENT Admitting Physician: Other (Karla) Condition: STABLE Referrals: JENNIFER TELLES (PCP) Problem Qualifiers Primary Impression: CHF exacerbation Heart failure type: unspecified Qualified Codes: I50.9 - Heart failure, unspecified Additional Impressions: UTI (urinary tract infection) Urinary tract infection type: site unspecified Hematuria presence: without hematuria Qualified Codes: N39.0 - Urinary tract infection, site not specified TREV TYSON DO Jun 23, 2018 15:16
[2018-06-23] MEDS ORDERED: DEXAMETHASONE SOD PHOS 20 MG/5 ML VIAL. IV ONE ×2 (15:30)
[2018-06-23] MEDS ORDERED: ASPIRIN 325 MG TABLET PO ONE (15:30)
[2018-06-23 15:53] LABS: BASO # 0.1 x10^3/uL (0.0-0.2); BASO % 1 % (0-3); EOS # 0.5 x10^3/uL (0.0-0.7); EOS % 7 % (0-3); HEMATOCRIT 43.8 % (36.0-47.0); HEMOGLOBIN 14.1 g/dL (12.0-15.5); LYMPH # 2.3 x10^3/uL (1.0-4.8); LYMPH % 29 % (24-48); MEAN CORPUSCULAR HEMOGLOBIN 29 pg (25-35); MEAN CORPUSCULAR HGB CONC 32 g/dL (31-37); MEAN CORPUSCULAR VOLUME 91 fL (79-100); MONO # 0.6 x10^3/uL (0.0-1.1); MONO % 7 % (0-9); NEUT # 4.5 x10^3uL (1.8-7.7); NEUT % 56 % (31-73); PLATELET COUNT 228 x10^3/uL (140-400); RED BLOOD COUNT 4.82 x10^6/uL (3.50-5.40); RED CELL DISTRIBUTION WIDTH 16.2 % (11.5-14.5); WHITE BLOOD COUNT 7.9 x10^3/uL (4.0-11.0)
--- NOTE | 2018-06-23 15:53 | RAD ---
CHEST PA LATERAL Clinical indications: short of air and dyspnea. COMPARISON: June 12, 2018. Findings: The previously seen bilateral interstitial pulmonary edema has cleared. The previously seen small bilateral pleural effusions have cleared. No pneumothorax is seen. The heart size is enlarged but stable. Mediastinum is unchanged. The pulmonary vasculature is unremarkable. IMPRESSION: Clearing of bilateral pulmonary edema and pleural effusions. Electronically signed by: Andrew Torres MD (06/23/2018 3:50 PM) [facility]
--- NOTE | 2018-06-23 16:18 | EKG ---
[facility] [address] [place] [id number] Test Date: 2018-06-23 Test Time: 15:27:17 Pat Name: CRISTO TANG Department: Room: Gender: F Billing Representative: : [id number] Requested By: TREV TYSON Order Number: [id number] Reading MD: Abhishek Arshad Measurements Intervals [place] Rate: 89 P: NM: QRS: 26 QRSD: 70 T: 2 QT: 376 QTc: 459 Interpretive Statements ATRIAL FIBRILLATION QRS(T) CONTOUR ABNORMALITY CONSISTENT WITH ANTEROSEPTAL INFARCT AGE UNDETERMINED ABNORMAL ECG Electronically Signed On 06-28-2018 13:28:13 CDT by Abhishek Arshad
[2018-06-23 16:39] LABS: BILIRUBIN,URINE NEGATIVE (NEG); CLARITY,URINE CLEAR; COLOR,URINE YELLOW; NITRITE,URINE POSITIVE (NEG); PROTEIN,URINE NEGATIVE (NEG-TRACE); UROBILINOGEN,URINE 0.2 mg/dL (0.2 mg/dL)
[2018-06-23 16:46] LABS: HYALINE CASTS, URINE FEW /HPF
[2018-06-23 16:47] LABS: BACTERIA,URINE MANY /HPF (0-FEW); RBC,URINE 0 /HPF (0-2); WBC,URINE 20-40 /HPF (0-4)
[2018-06-23] MEDS: IPRATRPIUM/ALBUTEROL 0.5/2.5MG 3 ML NEBU. NEB SCH ×2 (16:48→19:37)
[2018-06-23] MEDS ORDERED: cefTRIAXone IV Push 1 GM VIAL. IVP ONE (17:00)
[2018-06-23 17:04] LABS: CALCIUM 9.1 mg/dL (8.5-10.1); CREATININE 1.2 mg/dL (0.6-1.0); GFR 42.6; POTASSIUM 4.3 mmol/L (3.5-5.1)
[2018-06-23 17:11] LABS: ALBUMIN 2.8 g/dL (3.4-5.0); ALBUMIN/GLOBULIN RATIO 0.9 (1.0-1.7); MAGNESIUM 1.7 mg/dL (1.8-2.4); TOTAL BILIRUBIN 0.5 mg/dL (0.2-1.0); TOTAL PROTEIN 5.9 g/dL (6.4-8.2)
[2018-06-23 17:17] LABS: CREATINE KINASE 17 U/L (26-192)
[2018-06-23] MEDS ORDERED: BUMETANIDE 1 MG/4 ML VIAL. IV ONE (17:45)
[2018-06-23 18:00] VITALS: BP 131/84
--- NOTE | 2018-06-23 18:45 | NUR ---
Patient admitted to Room 252 with her two sons. Patient is stable at this time. A quick assessment was performed with the oncoming nurse. Patient given food and is resting. Patients two sons have left. Medications have been reviewed. Will pass along to REID Huntley.
[2018-06-23 19:00] VITALS: BP 131/84
[2018-06-23] MEDS ORDERED: HYDR28.423 TP (19:11)
[2018-06-23] MEDS ORDERED: MINE473L5 TP (19:11)
[2018-06-23] MEDS ORDERED: DICL100G18 TP (19:11)
[2018-06-23] MEDS: NYSTATIN TOPICAL POWDER 15GM BOTTLE. TP SCH (20:52)
[2018-06-23 23:00] VITALS: BP 135/77
[2018-06-24 03:00] VITALS: BP 120/83
[2018-06-24 07:00] VITALS: BP 140/88
[2018-06-24] MEDS: IPRATRPIUM/ALBUTEROL 0.5/2.5MG 3 ML NEBU. NEB SCH ×4 (07:12→19:50)
[2018-06-24] MEDS: diphenhydrAMINE HCL 25 MG CAPSULE PO SCH (08:31)
[2018-06-24] MEDS: ASPIRIN ENTERIC COATED 81 MG TABLET.DR. PO SCH (08:31)
[2018-06-24] MEDS: HYDROcodone/APAP 5/325MG 1 TAB TABLET PO PRN ×2 (08:31→22:43)
[2018-06-24] MEDS: CARVEDILOL 12.5 MG TABLET. PO SCH ×2 (08:31→17:33)
[2018-06-24] MEDS: FAMOTIDINE 20 MG TABLET. PO SCH (08:31)
[2018-06-24] MEDS: LOSARTAN POTASSIUM 25 MG TABLET. PO SCH (08:31)
[2018-06-24] MEDS: NYSTATIN TOPICAL POWDER 15GM BOTTLE. TP SCH ×2 (08:32→21:34)
[2018-06-24 09:10] LABS: BASO % 0 % (0-3); EOS % 0 % (0-3); HEMATOCRIT 43.1 % (36.0-47.0); HEMOGLOBIN 14.2 g/dL (12.0-15.5); LYMPH # 1.1 x10^3/uL (1.0-4.8); LYMPH % 12 % (24-48); MEAN CORPUSCULAR HEMOGLOBIN 30 pg (25-35); MEAN CORPUSCULAR HGB CONC 33 g/dL (31-37); MEAN CORPUSCULAR VOLUME 90 fL (79-100); MONO # 0.2 x10^3/uL (0.0-1.1); MONO % 2 % (0-9); NEUT # 7.8 x10^3uL (1.8-7.7); NEUT % 85 % (31-73); PLATELET COUNT 211 x10^3/uL (140-400); RED BLOOD COUNT 4.78 x10^6/uL (3.50-5.40); RED CELL DISTRIBUTION WIDTH 15.9 % (11.5-14.5); WHITE BLOOD COUNT 9.1 x10^3/uL (4.0-11.0)
[2018-06-24 09:17] LABS: CALCIUM 9.3 mg/dL (8.5-10.1); CREATININE 1.2 mg/dL (0.6-1.0); GFR 42.6
[2018-06-24 10:53] LABS: % BANDS 2 % (0-9); % LYMPHS 12 % (24-48); % MONOS 3 % (0-10); % SEGS 83 % (35-66)
[2018-06-24 10:54] LABS: PLT ESTIMATE ADEQUATE (ADEQUATE)
[2018-06-24 11:00] VITALS: BP 111/65
--- NOTE | 2018-06-24 11:51 | NUR ---
SS following for discharge planning. SS reviewed pt chart. Pt is from home with family and was previously on services with [facility]. SS will continue to follow for discharge needs.
--- NOTE | 2018-06-24 12:44 | PDOC1 ---
History and Physical Date of Admission Date of Admission DATE: 06/24/18 TIME: 12:40 Identification/Chief Complaint Chief Complaint Shortness of breath Source Source: Caregiver, Chart review, Patient History of Present Illness History of Present Illness Ms Alonso is an 88yo F w/ PMHx COPD, AFib, hypertension, hyperlipidemia, hypothyroidism, chronic knee pain, hypokalemia, right shoulder surgery, right jaw surgery and heavy alcohol abuse who was admitted for worsening shortness of breath, weakness, hypoxia. Given Bumex in ED and after her CXR shows clearing of bilateral opacities and pleural effusions. She is still feeling very weak. Does not feel she can even get out of bed to urinate. Short of breath. Denies CP, no abdominal pain Urine positive for nitrites and leuk esterase. Patient's son who is present at bedside states that the patient has had three nebulizer treatments today with temporary relief. Patient states that she noticed her shortness of breath is worse with laying flat. Upon arrival, patient is complaining of feeling weak. Patient states that her shortness of breath is improved. Per son, the patient has been very fatigued today. Patient' s son states that the patient was admitted to [facility] a few weeks ago where she was diagnosed with congestive heart failure. Patient is on Lasix 40mg/daily. Past Medical History Cardiovascular: AFIB, HTN Pulmonary: No pertinent hx CENTRAL NERVOUS SYSTEM: Other GI: Gastritis Heme/Onc: No pertinent hx Hepatobiliary: No pertinent hx Psych: No pertinent hx Musculoskeletal: Osteoarthritis Rheumatologic: No pertinent hx Infectious disease: No pertinent hx Renal/: No pertinent hx Endocrine: Hypothyroidism Past Surgical History Past Surgical History: Cataract Removal, Other Family History Family History: No Significant, Family History Unknown, Other Social History Smoke: No ALCOHOL: none Drugs: None Current Problem List Problem List Problems Medical Problems: (1) CHF exacerbation Status: Acute (2) Hypoxia Status: Acute (3) UTI (urinary tract infection) Status: Acute Current Medications Current Medications Current Medications Dexamethasone Sodium Phosphate (Decadron) 10 mg 1X ONCE IV Last administered on 06/23/18at 15:28; Start 06/23/18 at 15:30; Stop 06/23/18 at 15:31; Status DC Aspirin (Neel Aspirin) 325 mg 1X ONCE PO Last administered on 06/23/18at 15:44 ; Start 06/23/18 at 15:30; Stop 4/17/19 at 15:31; Status DC Dexamethasone Sodium Phosphate (Decadron) 10 mg 1X ONCE IV ; Start 06/23/18 at 15:30; Stop 06/23/18 at 15:31; Status DC Albuterol/ Ipratropium (Duoneb) 3 ml RTQID NEB Last administered on 06/23/18at 19:37; Start 06/23/18 at 16:30; Stop 06/23/18 at 20:30; Status DC Ceftriaxone Sodium (Rocephin) 1 gm 1X ONCE IVP Last administered on 06/23/18 18:14; Start 06/23/18 at 17:00; Stop 06/23/18 at 17:01; Status DC Bumetanide (Bumex) 0.5 mg 1X ONCE IV Last administered on 06/23/18at 20:50; Start 06/23/18 at 17:45; Stop 06/23/18 at 17:47; Status DC Aspirin (Ecotrin) 81 mg DAILY PO Last administered on 06/24/18 08:31; Start at 09:00 Carvedilol (Coreg) 12.5 mg BIDWMEALS PO Last administered on 06/24/18 08:31; Start 06/24/18 at 08:00 Diphenhydramine HCl (Benadryl) 25 mg DAILY PO Last administered on 06/24/18 08 :31; Start 06/24/18 at 09:00 Famotidine (Pepcid) 20 mg DAILY PO Last administered on 06/24/18 08:31; Start 06/24/18 at 09:00 Acetaminophen/ Hydrocodone Bitart (Lortab 5/325) 1 tab PRN Q4HRS PRN PO PAIN Last administered on 06/24/18 08:31; Start 06/23/18 at 20:30 Albuterol/ Ipratropium (Duoneb) 3 ml RTQID NEB Last administered on 06/24/18at 11:40; Start 06/24/18 at 08:00 Losartan Potassium (Cozaar) 25 mg DAILY PO Last administered on 06/24/18 08:31 ; Start 06/24/18 at 09:00 Nystatin (Nystop) 1 bret BID TP Last administered on 4/18/19at 08:32; Start at 21:00 Diclofenac Sodium (Voltaren) 1 bret QID TP ; Start 06/24/18 at 13:00 Active Scripts Active Duoneb 0.5-3(2.5) Mg/3 Ml (Albuterol/Ipratropium) 3 Ml Ampul.neb 3 Ml NEB RTQID MDD 1 Carvedilol (Carvedilol) 12.5 Mg Tablet 12.5 Mg PO BIDWMEALS MDD 1 Nystop (Nystatin) 60 Gm Powder 1 Bret TP BID MDD 1 Cozaar (Losartan Potassium) 25 Mg Tablet 25 Mg PO DAILY Reported Hydrocerin Lotion (Mineral Oil/I-Prop Myr/Water) 472 Ml Lotion 472 Ml TP BID Hydrocortisone Plus 1% Cream (Hydrocortisone/Aloe Vera) 28.4 Gm Cream..g. 28.4 Gm TP BID Voltaren (Diclofenac Sodium) 100 Gm Gel..gram. 1 Gm TP QID Hydrocodone-Acetamin 5-325 mg (Hydrocodone/Acetaminophen) 1 Each Tablet 1 Each PO PRN Q4HRS PRN Benadryl (Diphenhydramine Hcl) 25 Mg Capsule 25 Mg PO DAILY Famotidine 20 Mg Tablet 20 Mg PO DAILY Aspir-Low (Aspirin) 81 Mg Tablet.dr 81 Mg PO DAILY Furosemide 40 Mg Tablet 40 Mg PO DAILY Potassium Chloride 10 Meq Capsule.er 10 Meq PO DAILY Allergies Allergies: Coded Allergies: No Known Drug Allergies (Unverified , 08/21/15) ROS General: YES: Fatigue, Malaise; No: Chills, Night Sweats, Appetite, Other PSYCHOLOGICAL ROS: No: Anxiety, Behavioral Disorder, Concentration difficultie , Decreased libido, Depression, Disorientation, Hallucinations, Hostility, Irritablity, Memory difficulties, Mood Swings, Obsessive thoughts, Physical abuse, Sexual abuse, Sleep disturbances, Suicidal ideation, Other Eyes: No Blurry vision, No Decreased vision, No Double vision, No Dry eyes, No Excessive tearing, No Eye Pain, No Itchy Eyes, No Loss of vision, No Photophobia , No Scotomata, No Uses contacts, No Uses glasses, No Other HEENT: No: Heacaches, Visual Changes, Hearing change, Nasal congestion, Nasal discharge, Oral lesions, Sinus pain, Sore Throat, Epistaxis, Sneezing, Snoring, Tinnitus, Vertigo, Vocal changes, Other ALLERGY AND IMMUNOLOGY: No: Hives, Insect Bite Sensitivity, Itchy/Watery Eyes, Nasal Congestion, Post Nasal Drip, Seasonal Allergies, Other Hematological and Lymphatic: No: Bleeding Problems, Blood Clots, Blood Transfusions, Brusing, Night Sweats, Pallor, Swollen Lymph Nodes, Other ENDOCRINE: No: Breast Changes, Galactorrhea, Hair Pattern Changes, Hot Flashes , Malaise/lethargy, Mood Swings, Palpitations, Polydipsia/polyuria, Skin Changes , Temperature Intolerance, Unexpected Weight Changes, Other Breast: No New/Changing Breast Lumps, No Nipple changes, No Nipple discharge, No Other Respiratory: YES: Orthopnea, Shortness of breath, SOB with excertion; No: Cough, Hemoptysis, Pleuritic Pain, Sputum Changes, Stridor, Tachypnea, Wheezing, Other Cardiovascular: yes Orthopnea, yes Paroxysmal Noc. Dyspnea; No Chest Pain, No Palpitations, No Edema, No Lt Headedness, No Other Gastrointestinal: No Nausea, No Vomiting, No Abdominal Pain, No Diarrhea, No Constipation, No Melena, No Hematochezia, No Other Genitourinary: YES Dysuria, YES Frequency, YES Retention; No Incontinence, No Hematuria, No Discharge, No Urgency, No Pain, No Flank Pain, No Other, No , No , No , No , No , No , No Musculoskeletal: No Gait Disturbance, No Joint Pain, No Joint Stiffness, No Joint Swelling, No Muscle Pain, No Muscular Weakness, No Pain In:, No Swelling In:, No Other Neurological: No Behavorial Changes, No Bowel/Bladder ControlChng, No Confusion , No Dizziness, No Gait Disturbance, No Headaches, No Impaired Coord/balance, No Memory Loss, No Numbness/Tingling, No Seizures, No Speech Problems, No Tremors, No Visual Changes, No Weakness, No Other Skin: No Dry Skin, No Eczema, No Hair Changes, No Lumps, No Mole Changes, No Mottling, No Nail Changes, No Pruritus, No Rash, No Skin Lesion Changes, No Other, No Acne Physical Exam General: Alert, Cooperative, No acute distress HEENT: Atraumatic, PERRLA, EOMI, Mucous membr. moist/pink Lungs: Other (scattered wheezes) Heart: S1S2, RRR Rectal Exam: not examined Extremities: No clubbing, No cyanosis, Normal pulses, No tenderness/swelling, Other (1+ edema) Skin: No rashes, No breakdown, No significant lesion Neuro: Normal speech, Strength at 5/5 X4 ext, Normal tone, Sensation intact, Cranial nerves 3-12 NL, Reflexes 2+ Vitals Vitals Vital Signs Date Time Temp Pulse Resp B/P (MAP) Pulse Ox O2 Delivery O2 Flow Rate FiO2 06/24/18 11:42 96 Room Air 06/24/18 11:00 97.3 81 18 111/65 (80) 97.3 06/23/18 19:38 1.0 Labs Labs Laboratory Tests Test 06/23/18 14:30 06/23/18 16:20 06/23/18 16:30 06/23/18 19:35 White Blood Count 7.9 x10^3/uL (4.0-11.0) Red Blood Count 4.82 x10^6/uL (3.50-5.40) Hemoglobin 14.1 g/dL (12.0-15.5) Hematocrit 43.8 % (36.0-47.0) Mean Corpuscular Volume 91 fL (79-100) Mean Corpuscular Hemoglobin 29 pg (25-35) Mean Corpuscular Hemoglobin Concent 32 g/dL (31-37) Red Cell Distribution Width 16.2 % (11.5-14.5) Platelet Count 228 x10^3/uL (140-400) Neutrophils (%) (Auto) 56 % (31-73) Lymphocytes (%) (Auto) 29 % (24-48) Monocytes (%) (Auto) 7 % (0-9) Eosinophils (%) (Auto) 7 % (0-3) Basophils (%) (Auto) 1 % (0-3) Neutrophils # (Auto) 4.5 x10^3uL (1.8-7.7) Lymphocytes # (Auto) 2.3 x10^3/uL (1.0-4.8) Monocytes # (Auto) 0.6 x10^3/uL (0.0-1.1) Eosinophils # (Auto) 0.5 x10^3/uL (0.0-0.7) Basophils # (Auto) 0.1 x10^3/uL (0.0-0.2) Urine Collection Type U cath Urine Color Yellow Urine Clarity Clear Urine pH 6.0 Urine Specific Ravia 1.015 Urine Protein Negative mg/dL (NEG-TRACE) Urine Glucose (UA) Negative mg/dL (NEG) Urine Ketones (Stick) Negative mg/dL (NEG) Urine Blood Negative (NEG) Urine Nitrite Positive (NEG) Urine Bilirubin Negative (NEG) Urine Urobilinogen Dipstick 0.2 mg/dL (0.2 mg/dL) Urine Leukocyte Esterase Large (NEG) Urine RBC 0 /HPF (0-2) Urine WBC 20-40 /HPF (0-4) Urine Bacteria Many /HPF (0-FEW) Urine Hyaline Casts Few /HPF Sodium Level 143 mmol/L (136-145) Potassium Level 4.3 mmol/L (3.5-5.1) Chloride Level 103 mmol/L (98-107) Carbon Dioxide Level 29 mmol/L (21-32) Anion Gap 11 (6-14) Blood Urea Nitrogen 24 mg/dL (7-20) Creatinine 1.2 mg/dL (0.6-1.0) Estimated GFR (Cockcroft-Gault) 42.6 BUN/Creatinine Ratio 20 (6-20) Glucose Level 115 mg/dL (70-99) Calcium Level 9.1 mg/dL (8.5-10.1) Magnesium Level 1.7 mg/dL (1.8-2.4) Total Bilirubin 0.5 mg/dL (0.2-1.0) Aspartate Amino Transf (AST/SGOT) 16 U/L (15-37) Alanine Aminotransferase (ALT/SGPT) 21 U/L (14-59) Alkaline Phosphatase 75 U/L (46-116) Creatine Kinase 17 U/L (26-192) Creatine Kinase MB (Mass) 0.6 ng/mL (0.0-3.6) Creatine Kinase MB Relative Index % (0-4) Troponin I Quantitative 0.049 ng/mL (0.000-0.055) 0.052 ng/mL (0.000-0.055) BY-Tyl-B-Type Natriuretic Peptide 1757 pg/mL (0-449) Total Protein 5.9 g/dL (6.4-8.2) Albumin 2.8 g/dL (3.4-5.0) Albumin/Globulin Ratio 0.9 (1.0-1.7) Test 06/23/18 22:20 06/24/18 08:40 Troponin I Quantitative 0.036 ng/mL (0.000-0.055) White Blood Count 9.1 x10^3/uL (4.0-11.0) Red Blood Count 4.78 x10^6/uL (3.50-5.40) Hemoglobin 14.2 g/dL (12.0-15.5) Hematocrit 43.1 % (36.0-47.0) Mean Corpuscular Volume 90 fL (79-100) Mean Corpuscular Hemoglobin 30 pg (25-35) Mean Corpuscular Hemoglobin Concent 33 g/dL (31-37) Red Cell Distribution Width 15.9 % (11.5-14.5) Platelet Count 211 x10^3/uL (140-400) Neutrophils (%) (Auto) 85 % (31-73) Lymphocytes (%) (Auto) 12 % (24-48) Monocytes (%) (Auto) 2 % (0-9) Eosinophils (%) (Auto) 0 % (0-3) Basophils (%) (Auto) 0 % (0-3) Neutrophils # (Auto) 7.8 x10^3uL (1.8-7.7) Lymphocytes # (Auto) 1.1 x10^3/uL (1.0-4.8) Monocytes # (Auto) 0.2 x10^3/uL (0.0-1.1) Eosinophils # (Auto) 0.0 x10^3/uL (0.0-0.7) Basophils # (Auto) 0.0 x10^3/uL (0.0-0.2) Segmented Neutrophils % 83 % (35-66) Band Neutrophils % 2 % (0-9) Lymphocytes % 12 % (24-48) Monocytes % 3 % (0-10) Platelet Estimate Adequate (ADEQUATE) Sodium Level 143 mmol/L (136-145) Potassium Level 4.0 mmol/L (3.5-5.1) Chloride Level 105 mmol/L (98-107) Carbon Dioxide Level 27 mmol/L (21-32) Anion Gap 11 (6-14) Blood Urea Nitrogen 28 mg/dL (7-20) Creatinine 1.2 mg/dL (0.6-1.0) Estimated GFR (Cockcroft-Gault) 42.6 Glucose Level 130 mg/dL (70-99) Calcium Level 9.3 mg/dL (8.5-10.1) Laboratory Tests Test 06/23/18 14:30 06/23/18 16:20 06/23/18 16:30 06/23/18 19:35 White Blood Count 7.9 x10^3/uL (4.0-11.0) Red Blood Count 4.82 x10^6/uL (3.50-5.40) Hemoglobin 14.1 g/dL (12.0-15.5) Hematocrit 43.8 % (36.0-47.0) Mean Corpuscular Volume 91 fL (79-100) Mean Corpuscular Hemoglobin 29 pg (25-35) Mean Corpuscular Hemoglobin Concent 32 g/dL (31-37) Red Cell Distribution Width 16.2 % (11.5-14.5) Platelet Count 228 x10^3/uL (140-400) Neutrophils (%) (Auto) 56 % (31-73) Lymphocytes (%) (Auto) 29 % (24-48) Monocytes (%) (Auto) 7 % (0-9) Eosinophils (%) (Auto) 7 % (0-3) Basophils (%) (Auto) 1 % (0-3) Neutrophils # (Auto) 4.5 x10^3uL (1.8-7.7) Lymphocytes # (Auto) 2.3 x10^3/uL (1.0-4.8) Monocytes # (Auto) 0.6 x10^3/uL (0.0-1.1) Eosinophils # (Auto) 0.5 x10^3/uL (0.0-0.7) Basophils # (Auto) 0.1 x10^3/uL (0.0-0.2) Urine Collection Type U cath Urine Color Yellow Urine Clarity Clear Urine pH 6.0 Urine Specific Ravia 1.015 Urine Protein Negative mg/dL (NEG-TRACE) Urine Glucose (UA) Negative mg/dL (NEG) Urine Ketones (Stick) Negative mg/dL (NEG) Urine Blood Negative (NEG) Urine Nitrite Positive (NEG) Urine Bilirubin Negative (NEG) Urine Urobilinogen Dipstick 0.2 mg/dL (0.2 mg/dL) Urine Leukocyte Esterase Large (NEG) Urine RBC 0 /HPF (0-2) Urine WBC 20-40 /HPF (0-4) Urine Bacteria Many /HPF (0-FEW) Urine Hyaline Casts Few /HPF Sodium Level 143 mmol/L (136-145) Potassium Level 4.3 mmol/L (3.5-5.1) Chloride Level 103 mmol/L (98-107) Carbon Dioxide Level 29 mmol/L (21-32) Anion Gap 11 (6-14) Blood Urea Nitrogen 24 mg/dL (7-20) Creatinine 1.2 mg/dL (0.6-1.0) Estimated GFR (Cockcroft-Gault) 42.6 BUN/Creatinine Ratio 20 (6-20) Glucose Level 115 mg/dL (70-99) Calcium Level 9.1 mg/dL (8.5-10.1) Magnesium Level 1.7 mg/dL (1.8-2.4) Total Bilirubin 0.5 mg/dL (0.2-1.0) Aspartate Amino Transf (AST/SGOT) 16 U/L (15-37) Alanine Aminotransferase (ALT/SGPT) 21 U/L (14-59) Alkaline Phosphatase 75 U/L (46-116) Creatine Kinase 17 U/L (26-192) Creatine Kinase MB (Mass) 0.6 ng/mL (0.0-3.6) Creatine Kinase MB Relative Index % (0-4) Troponin I Quantitative 0.049 ng/mL (0.000-0.055) 0.052 ng/mL (0.000-0.055) UR-Cxy-E-Type Natriuretic Peptide 1757 pg/mL (0-449) Total Protein 5.9 g/dL (6.4-8.2) Albumin 2.8 g/dL (3.4-5.0) Albumin/Globulin Ratio 0.9 (1.0-1.7) Test 06/23/18 22:20 06/24/18 08:40 Troponin I Quantitative 0.036 ng/mL (0.000-0.055) White Blood Count 9.1 x10^3/uL (4.0-11.0) Red Blood Count 4.78 x10^6/uL (3.50-5.40) Hemoglobin 14.2 g/dL (12.0-15.5) Hematocrit 43.1 % (36.0-47.0) Mean Corpuscular Volume 90 fL (79-100) Mean Corpuscular Hemoglobin 30 pg (25-35) Mean Corpuscular Hemoglobin Concent 33 g/dL (31-37) Red Cell Distribution Width 15.9 % (11.5-14.5) Platelet Count 211 x10^3/uL (140-400) Neutrophils (%) (Auto) 85 % (31-73) Lymphocytes (%) (Auto) 12 % (24-48) Monocytes (%) (Auto) 2 % (0-9) Eosinophils (%) (Auto) 0 % (0-3) Basophils (%) (Auto) 0 % (0-3) Neutrophils # (Auto) 7.8 x10^3uL (1.8-7.7) Lymphocytes # (Auto) 1.1 x10^3/uL (1.0-4.8) Monocytes # (Auto) 0.2 x10^3/uL (0.0-1.1) Eosinophils # (Auto) 0.0 x10^3/uL (0.0-0.7) Basophils # (Auto) 0.0 x10^3/uL (0.0-0.2) Segmented Neutrophils % 83 % (35-66) Band Neutrophils % 2 % (0-9) Lymphocytes % 12 % (24-48) Monocytes % 3 % (0-10) Platelet Estimate Adequate (ADEQUATE) Sodium Level 143 mmol/L (136-145) Potassium Level 4.0 mmol/L (3.5-5.1) Chloride Level 105 mmol/L (98-107) Carbon Dioxide Level 27 mmol/L (21-32) Anion Gap 11 (6-14) Blood Urea Nitrogen 28 mg/dL (7-20) Creatinine 1.2 mg/dL (0.6-1.0) Estimated GFR (Cockcroft-Gault) 42.6 Glucose Level 130 mg/dL (70-99) Calcium Level 9.3 mg/dL (8.5-10.1) Images Images CXR - Clearing of bilateral pulmonary edema and pleural effusions. VTE Prophylaxis Ordered VTE Prophylaxis Devices: Yes VTE Pharmacological Prophylaxi: Yes Assessment/Plan Assessment/Plan A/P: Shortness of breath - combination of mild CHF exacerbation with possibly bronchitis [id number] systolic and diastolic heart failure - will change to IV lasix , monitor fluid status closely with age, renal panel daily. Cont diuresis, herrera if necessary. UTI - positive LE and nitrites - f/u culture data and give rocephin hypokalemia - monitor hyperglycemia - monitor, sliding scale Severe protein calorie malnutrition - albumin low Low UOP - PVR FEN - cardiac diet PPX - heparin Full code Dispo - inpatient for acute CHF and UTI. PT/OT, may need placement for recovery from this CHF exacerbation LEATHA GHOSH MD Jun 24, 2018 12:44
[2018-06-24] MEDS: DICLOFENAC SODIUM 1% TOPICAL GEL 100GM TUBE. TP SCH ×3 (13:12→21:35)
[2018-06-24] MEDS: FUROSEMIDE 20 MG/2 ML VIAL. IVP SCH (13:13)
[2018-06-24] MEDS: POTASSIUM CHLORIDE 10 MEQ TABLET.ER. PO SCH (13:35)
[2018-06-24 15:10] VITALS: BP 119/63
[2018-06-24] MEDS: HEPARIN for SUB-Q USE 5,000 UNIT/ML VIAL. SQ SCH ×2 (16:14→21:37)
[2018-06-24] MEDS: cefTRIAXone IV Push 1 GM VIAL. IVP SCH (17:30)
[2018-06-24 19:00] VITALS: BP 114/76
[2018-06-24] MEDS: MINERAL OIL/PETROLATUM TOPICAL CREAM 113GM JAR. TP SCH (21:52)
[2018-06-24] MEDS: HYDROCORTISONE 1% TOPICAL CREAM 30GM TUBE. TP SCH (21:53)
[2018-06-24 22:34] VITALS: BP 140/73
[2018-06-25 03:00] VITALS: BP 150/93
[2018-06-25 05:48] LABS: ALBUMIN 2.7 g/dL (3.4-5.0); CALCIUM 9.2 mg/dL (8.5-10.1); CREATININE 1.2 mg/dL (0.6-1.0); GFR 42.6; PHOSPHORUS 3.2 mg/dL (2.6-4.7); POTASSIUM 3.2 mmol/L (3.5-5.1)
[2018-06-25] MEDS: HEPARIN for SUB-Q USE 5,000 UNIT/ML VIAL. SQ SCH ×3 (06:33→21:39)
[2018-06-25] MEDS: IPRATRPIUM/ALBUTEROL 0.5/2.5MG 3 ML NEBU. NEB SCH ×4 (07:12→19:36)
[2018-06-25 07:42] VITALS: BP 151/89
--- NOTE | 2018-06-25 08:10 | PDOC ---
PROGRESS NOTES Chief Complaint Chief Complaint A/P: Shortness of breath - combination of mild CHF exacerbation with possibly bronchitis [id number] systolic and diastolic heart failure - will change to IV lasix , monitor fluid status closely with age, renal panel daily. Cont diuresis, herrera if necessary. UTI - positive LE and nitrites - f/u culture data and give rocephin hypokalemia - monitor hyperglycemia - monitor, sliding scale Severe protein calorie malnutrition - albumin low Low UOP - PVR FEN - cardiac diet PPX - heparin Full code Dispo - inpatient for acute CHF and UTI. PT/OT, may need placement for recovery from this CHF exacerbation History of Present Illness History of Present Illness Ms Alonso is an 88yo F w/ PMHx COPD, AFib, hypertension, hyperlipidemia, hypothyroidism, chronic knee pain, hypokalemia, right shoulder surgery, right jaw surgery and heavy alcohol abuse who was admitted for worsening shortness of breath, weakness, hypoxia. Given Bumex in ED and after her CXR shows clearing of bilateral opacities and pleural effusions. She is still feeling very weak. Does not feel she can even get out of bed to urinate. Short of breath. Denies CP, no abdominal pain Urine positive for nitrites and leuk esterase. Patient's son who is present at bedside states that the patient has had three nebulizer treatments today with temporary relief. Patient states that she noticed her shortness of breath is worse with laying flat. Upon arrival, patient is complaining of feeling weak. Patient states that her shortness of breath is improved. Per son, the patient has been very fatigued today. Patient' s son states that the patient was admitted to [facility] a few weeks ago where she was diagnosed with congestive heart failure. Patient is on Lasix 40mg/daily. She is feeling improved, discussed recurrent hospital stay and she and patients sons all agree hospice at home would be appropriate Plan: Home with hospice. D/w nursing and SW Vitals Vitals Vital Signs Date Time Temp Pulse Resp B/P (MAP) Pulse Ox O2 Delivery O2 Flow Rate FiO2 06/25/18 07:42 97.7 96 18 151/89 (109) 99 Room Air 97.7 Physical Exam General: Alert, Cooperative, No acute distress Heart: Regular rate Lungs: Clear Extremities: No clubbing, No cyanosis, Normal pulses, No tenderness/swelling, Other (1+ edema) Skin: No rashes, No breakdown, No significant lesion Labs LABS Laboratory Tests Test 06/24/18 08:40 06/25/18 04:30 White Blood Count 9.1 x10^3/uL (4.0-11.0) Red Blood Count 4.78 x10^6/uL (3.50-5.40) Hemoglobin 14.2 g/dL (12.0-15.5) Hematocrit 43.1 % (36.0-47.0) Mean Corpuscular Volume 90 fL (79-100) Mean Corpuscular Hemoglobin 30 pg (25-35) Mean Corpuscular Hemoglobin Concent 33 g/dL (31-37) Red Cell Distribution Width 15.9 % (11.5-14.5) Platelet Count 211 x10^3/uL (140-400) Neutrophils (%) (Auto) 85 % (31-73) Lymphocytes (%) (Auto) 12 % (24-48) Monocytes (%) (Auto) 2 % (0-9) Eosinophils (%) (Auto) 0 % (0-3) Basophils (%) (Auto) 0 % (0-3) Neutrophils # (Auto) 7.8 x10^3uL (1.8-7.7) Lymphocytes # (Auto) 1.1 x10^3/uL (1.0-4.8) Monocytes # (Auto) 0.2 x10^3/uL (0.0-1.1) Eosinophils # (Auto) 0.0 x10^3/uL (0.0-0.7) Basophils # (Auto) 0.0 x10^3/uL (0.0-0.2) Segmented Neutrophils % 83 % (35-66) Band Neutrophils % 2 % (0-9) Lymphocytes % 12 % (24-48) Monocytes % 3 % (0-10) Platelet Estimate Adequate (ADEQUATE) D-Dimer (Kathrin) 3.44 ug/mlFEU (0.00-0.50) Sodium Level 143 mmol/L (136-145) 140 mmol/L (136-145) Potassium Level 4.0 mmol/L (3.5-5.1) 3.2 mmol/L (3.5-5.1) Chloride Level 105 mmol/L (98-107) 103 mmol/L (98-107) Carbon Dioxide Level 27 mmol/L (21-32) 26 mmol/L (21-32) Anion Gap 11 (6-14) 11 (6-14) Blood Urea Nitrogen 28 mg/dL (7-20) 28 mg/dL (7-20) Creatinine 1.2 mg/dL (0.6-1.0) 1.2 mg/dL (0.6-1.0) Estimated GFR (Cockcroft-Gault) 42.6 42.6 Glucose Level 130 mg/dL (70-99) 100 mg/dL (70-99) Calcium Level 9.3 mg/dL (8.5-10.1) 9.2 mg/dL (8.5-10.1) Phosphorus Level 3.2 mg/dL (2.6-4.7) Albumin 2.7 g/dL (3.4-5.0) Assessment and Plan Assessmemt and Plan Problems Medical Problems: (1) CHF exacerbation Status: Acute (2) Hypoxia Status: Acute (3) UTI (urinary tract infection) Status: Acute Comment Review of Relevant I have reviewed the following items lupe (where applicable) has been applied. Labs Laboratory Tests Test 06/23/18 14:30 06/23/18 16:20 06/23/18 16:30 06/23/18 19:35 White Blood Count 7.9 x10^3/uL (4.0-11.0) Red Blood Count 4.82 x10^6/uL (3.50-5.40) Hemoglobin 14.1 g/dL (12.0-15.5) Hematocrit 43.8 % (36.0-47.0) Mean Corpuscular Volume 91 fL (79-100) Mean Corpuscular Hemoglobin 29 pg (25-35) Mean Corpuscular Hemoglobin Concent 32 g/dL (31-37) Red Cell Distribution Width 16.2 % (11.5-14.5) Platelet Count 228 x10^3/uL (140-400) Neutrophils (%) (Auto) 56 % (31-73) Lymphocytes (%) (Auto) 29 % (24-48) Monocytes (%) (Auto) 7 % (0-9) Eosinophils (%) (Auto) 7 % (0-3) Basophils (%) (Auto) 1 % (0-3) Neutrophils # (Auto) 4.5 x10^3uL (1.8-7.7) Lymphocytes # (Auto) 2.3 x10^3/uL (1.0-4.8) Monocytes # (Auto) 0.6 x10^3/uL (0.0-1.1) Eosinophils # (Auto) 0.5 x10^3/uL (0.0-0.7) Basophils # (Auto) 0.1 x10^3/uL (0.0-0.2) Urine Collection Type U cath Urine Color Yellow Urine Clarity Clear Urine pH 6.0 Urine Specific Willow 1.015 Urine Protein Negative mg/dL (NEG-TRACE) Urine Glucose (UA) Negative mg/dL (NEG) Urine Ketones (Stick) Negative mg/dL (NEG) Urine Blood Negative (NEG) Urine Nitrite Positive (NEG) Urine Bilirubin Negative (NEG) Urine Urobilinogen Dipstick 0.2 mg/dL (0.2 mg/dL) Urine Leukocyte Esterase Large (NEG) Urine RBC 0 /HPF (0-2) Urine WBC 20-40 /HPF (0-4) Urine Bacteria Many /HPF (0-FEW) Urine Hyaline Casts Few /HPF Sodium Level 143 mmol/L (136-145) Potassium Level 4.3 mmol/L (3.5-5.1) Chloride Level 103 mmol/L (98-107) Carbon Dioxide Level 29 mmol/L (21-32) Anion Gap 11 (6-14) Blood Urea Nitrogen 24 mg/dL (7-20) Creatinine 1.2 mg/dL (0.6-1.0) Estimated GFR (Cockcroft-Gault) 42.6 BUN/Creatinine Ratio 20 (6-20) Glucose Level 115 mg/dL (70-99) Calcium Level 9.1 mg/dL (8.5-10.1) Magnesium Level 1.7 mg/dL (1.8-2.4) Total Bilirubin 0.5 mg/dL (0.2-1.0) Aspartate Amino Transf (AST/SGOT) 16 U/L (15-37) Alanine Aminotransferase (ALT/SGPT) 21 U/L (14-59) Alkaline Phosphatase 75 U/L (46-116) Creatine Kinase 17 U/L (26-192) Creatine Kinase MB (Mass) 0.6 ng/mL (0.0-3.6) Creatine Kinase MB Relative Index % (0-4) Troponin I Quantitative 0.049 ng/mL (0.000-0.055) 0.052 ng/mL (0.000-0.055) WC-Zop-I-Type Natriuretic Peptide 1757 pg/mL (0-449) Total Protein 5.9 g/dL (6.4-8.2) Albumin 2.8 g/dL (3.4-5.0) Albumin/Globulin Ratio 0.9 (1.0-1.7) Test 06/23/18 22:20 06/24/18 08:40 06/25/18 04:30 Troponin I Quantitative 0.036 ng/mL (0.000-0.055) White Blood Count 9.1 x10^3/uL (4.0-11.0) Red Blood Count 4.78 x10^6/uL (3.50-5.40) Hemoglobin 14.2 g/dL (12.0-15.5) Hematocrit 43.1 % (36.0-47.0) Mean Corpuscular Volume 90 fL (79-100) Mean Corpuscular Hemoglobin 30 pg (25-35) Mean Corpuscular Hemoglobin Concent 33 g/dL (31-37) Red Cell Distribution Width 15.9 % (11.5-14.5) Platelet Count 211 x10^3/uL (140-400) Neutrophils (%) (Auto) 85 % (31-73) Lymphocytes (%) (Auto) 12 % (24-48) Monocytes (%) (Auto) 2 % (0-9) Eosinophils (%) (Auto) 0 % (0-3) Basophils (%) (Auto) 0 % (0-3) Neutrophils # (Auto) 7.8 x10^3uL (1.8-7.7) Lymphocytes # (Auto) 1.1 x10^3/uL (1.0-4.8) Monocytes # (Auto) 0.2 x10^3/uL (0.0-1.1) Eosinophils # (Auto) 0.0 x10^3/uL (0.0-0.7) Basophils # (Auto) 0.0 x10^3/uL (0.0-0.2) Segmented Neutrophils % 83 % (35-66) Band Neutrophils % 2 % (0-9) Lymphocytes % 12 % (24-48) Monocytes % 3 % (0-10) Platelet Estimate Adequate (ADEQUATE) D-Dimer (Kathrin) 3.44 ug/mlFEU (0.00-0.50) Sodium Level 143 mmol/L (136-145) 140 mmol/L (136-145) Potassium Level 4.0 mmol/L (3.5-5.1) 3.2 mmol/L (3.5-5.1) Chloride Level 105 mmol/L (98-107) 103 mmol/L (98-107) Carbon Dioxide Level 27 mmol/L (21-32) 26 mmol/L (21-32) Anion Gap 11 (6-14) 11 (6-14) Blood Urea Nitrogen 28 mg/dL (7-20) 28 mg/dL (7-20) Creatinine 1.2 mg/dL (0.6-1.0) 1.2 mg/dL (0.6-1.0) Estimated GFR (Cockcroft-Gault) 42.6 42.6 Glucose Level 130 mg/dL (70-99) 100 mg/dL (70-99) Calcium Level 9.3 mg/dL (8.5-10.1) 9.2 mg/dL (8.5-10.1) Phosphorus Level 3.2 mg/dL (2.6-4.7) Albumin 2.7 g/dL (3.4-5.0) Laboratory Tests Test 06/24/18 08:40 06/25/18 04:30 White Blood Count 9.1 x10^3/uL (4.0-11.0) Red Blood Count 4.78 x10^6/uL (3.50-5.40) Hemoglobin 14.2 g/dL (12.0-15.5) Hematocrit 43.1 % (36.0-47.0) Mean Corpuscular Volume 90 fL (79-100) Mean Corpuscular Hemoglobin 30 pg (25-35) Mean Corpuscular Hemoglobin Concent 33 g/dL (31-37) Red Cell Distribution Width 15.9 % (11.5-14.5) Platelet Count 211 x10^3/uL (140-400) Neutrophils (%) (Auto) 85 % (31-73) Lymphocytes (%) (Auto) 12 % (24-48) Monocytes (%) (Auto) 2 % (0-9) Eosinophils (%) (Auto) 0 % (0-3) Basophils (%) (Auto) 0 % (0-3) Neutrophils # (Auto) 7.8 x10^3uL (1.8-7.7) Lymphocytes # (Auto) 1.1 x10^3/uL (1.0-4.8) Monocytes # (Auto) 0.2 x10^3/uL (0.0-1.1) Eosinophils # (Auto) 0.0 x10^3/uL (0.0-0.7) Basophils # (Auto) 0.0 x10^3/uL (0.0-0.2) Segmented Neutrophils % 83 % (35-66) Band Neutrophils % 2 % (0-9) Lymphocytes % 12 % (24-48) Monocytes % 3 % (0-10) Platelet Estimate Adequate (ADEQUATE) D-Dimer (Kathrin) 3.44 ug/mlFEU (0.00-0.50) Sodium Level 143 mmol/L (136-145) 140 mmol/L (136-145) Potassium Level 4.0 mmol/L (3.5-5.1) 3.2 mmol/L (3.5-5.1) Chloride Level 105 mmol/L (98-107) 103 mmol/L (98-107) Carbon Dioxide Level 27 mmol/L (21-32) 26 mmol/L (21-32) Anion Gap 11 (6-14) 11 (6-14) Blood Urea Nitrogen 28 mg/dL (7-20) 28 mg/dL (7-20) Creatinine 1.2 mg/dL (0.6-1.0) 1.2 mg/dL (0.6-1.0) Estimated GFR (Cockcroft-Gault) 42.6 42.6 Glucose Level 130 mg/dL (70-99) 100 mg/dL (70-99) Calcium Level 9.3 mg/dL (8.5-10.1) 9.2 mg/dL (8.5-10.1) Phosphorus Level 3.2 mg/dL (2.6-4.7) Albumin 2.7 g/dL (3.4-5.0) Medications Current Medications Dexamethasone Sodium Phosphate (Decadron) 10 mg 1X ONCE IV Last administered on 06/23/18at 15:28; Start 06/23/18 at 15:30; Stop 06/23/18 at 15:31; Status DC Aspirin (Neel Aspirin) 325 mg 1X ONCE PO Last administered on 06/23/18at 15:44 ; Start 06/23/18 at 15:30; Stop 06/23/18 at 15:31; Status DC Dexamethasone Sodium Phosphate (Decadron) 10 mg 1X ONCE IV ; Start 06/23/18 at 15:30; Stop 06/23/18 at 15:31; Status DC Albuterol/ Ipratropium (Duoneb) 3 ml RTQID NEB Last administered on 06/23/18at 19:37; Start 06/23/18 at 16:30; Stop 06/23/18 at 20:30; Status DC Ceftriaxone Sodium (Rocephin) 1 gm 1X ONCE IVP Last administered on 06/23/18at 18:14; Start 06/23/18 at 17:00; Stop 06/23/18 at 17:01; Status DC Bumetanide (Bumex) 0.5 mg 1X ONCE IV Last administered on 06/23/18at 20:50; Start 06/23/18 at 17:45; Stop 06/23/18 at 17:47; Status DC Aspirin (Ecotrin) 81 mg DAILY PO Last administered on 06/24/18 08:31; Start at 09:00 Carvedilol (Coreg) 12.5 mg BIDWMEALS PO Last administered on 06/24/18at 17:33; Start 06/24/18 at 08:00 Diphenhydramine HCl (Benadryl) 25 mg DAILY PO Last administered on 06/24/18 08 :31; Start 06/24/18 at 09:00 Famotidine (Pepcid) 20 mg DAILY PO Last administered on 06/24/18 08:31; Start 06/24/18 at 09:00 Acetaminophen/ Hydrocodone Bitart (Lortab 5/325) 1 tab PRN Q4HRS PRN PO PAIN Last administered on 06/24/18at 22:43; Start 06/23/18 at 20:30 Albuterol/ Ipratropium (Duoneb) 3 ml RTQID NEB Last administered on 06/25/18 07:12; Start 06/24/18 at 08:00 Losartan Potassium (Cozaar) 25 mg DAILY PO Last administered on 06/24/18 08:31 ; Start 06/24/18 at 09:00 Nystatin (Nystop) 1 bret BID TP Last administered on 06/24/18 21:34; Start at 21:00 Diclofenac Sodium (Voltaren) 1 bret QID TP Last administered on 06/24/18 21:35 ; Start 06/24/18 at 13:00 Furosemide (Lasix) 20 mg BID92 IVP Last administered on 06/24/18 13:13; Start 06/24/18 at 14:00 Potassium Chloride (Klor-Con) 10 meq DAILY PO ; Start 06/25/18 at 09:00; Stop at 09:00; Status DC Potassium Chloride (Klor-Con) 10 meq DAILY PO Last administered on 06/24/18 13 :35; Start 06/24/18 at 13:15 Hydrocortisone (Cortaid) 1 bret BID TP Last administered on 06/24/18 21:53; Start 06/24/18 at 21:00 Multi-Ingred Cream/Lotion/Oil/ Oint (Hydrocerin Cream) 1 bret BID TP Last administered on 06/24/18 21:52; Start 06/24/18 at 21:00 Ceftriaxone Sodium (Rocephin) 1 gm Q24H IVP Last administered on 06/24/18 17: 30; Start 06/24/18 at 15:00 Heparin Sodium (Porcine) (Heparin Sodium) 5,000 unit Q8HRS SQ Last administered on 06/25/18 06:33; Start 06/24/18 at 15:00 Active Scripts Active Duoneb 0.5-3(2.5) Mg/3 Ml (Albuterol/Ipratropium) 3 Ml Ampul.neb 3 Ml NEB RTQID MDD 1 Carvedilol (Carvedilol) 12.5 Mg Tablet 12.5 Mg PO BIDWMEALS MDD 1 Nystop (Nystatin) 60 Gm Powder 1 Bret TP BID MDD 1 Cozaar (Losartan Potassium) 25 Mg Tablet 25 Mg PO DAILY Reported Hydrocerin Lotion (Mineral Oil/I-Prop Myr/Water) 472 Ml Lotion 472 Ml TP BID Hydrocortisone Plus 1% Cream (Hydrocortisone/Aloe Vera) 28.4 Gm Cream..g. 28.4 Gm TP BID Voltaren (Diclofenac Sodium) 100 Gm Gel..gram. 1 Gm TP QID Hydrocodone-Acetamin 5-325 mg (Hydrocodone/Acetaminophen) 1 Each Tablet 1 Each PO PRN Q4HRS PRN Benadryl (Diphenhydramine Hcl) 25 Mg Capsule 25 Mg PO DAILY Famotidine 20 Mg Tablet 20 Mg PO DAILY Aspir-Low (Aspirin) 81 Mg Tablet.dr 81 Mg PO DAILY Furosemide 40 Mg Tablet 40 Mg PO DAILY Potassium Chloride 10 Meq Capsule.er 10 Meq PO DAILY Vitals/I & O Vital Sign - Last 24 Hours 06/24/18 06/24/18 06/24/18 06/24/18 08:31 08:31 08:31 11:00 Temp 97.3 97.3 Pulse 91 91 81 Resp 18 B/P (MAP) 140/88 140/88 111/65 (80) Pulse Ox 100 99 O2 Delivery Room Air Room Air 06/24/18 06/24/18 06/24/18 06/24/18 11:42 15:10 15:46 17:33 Temp 97.4 97.4 Pulse 81 81 Resp 18 B/P (MAP) 119/63 (81) 119/63 Pulse Ox 96 97 O2 Delivery Room Air Room Air Room Air 06/24/18 06/24/18 06/24/18 06/24/18 19:00 19:52 20:00 22:34 Temp 97.5 97.5 97.5 97.5 Pulse 94 75 Resp 16 18 B/P (MAP) 114/76 (89) 140/73 (95) Pulse Ox 100 100 100 O2 Delivery Room Air Room Air Room Air Room Air 06/24/18 06/24/18 06/25/18 06/25/18 22:43 23:43 03:00 07:12 Temp 97.4 97.4 Pulse 65 Resp 18 16 18 B/P (MAP) 150/93 (112) Pulse Ox 100 97 99 O2 Delivery Room Air Room Air Room Air Room Air 06/25/18 07:42 Temp 97.7 97.7 Pulse 96 Resp 18 B/P (MAP) 151/89 (109) Pulse Ox 99 O2 Delivery Room Air Intake and Output 06/24/18 06/24/18 06/25/18 15:00 23:00 07:00 Intake Total 970 ml 240 ml Output Total 250 ml 900 ml 650 ml Balance -250 ml 70 ml -410 ml LEATHA GHOSH MD Jun 25, 2018 08:10
[2018-06-25] MEDS ORDERED: POTASSIUM CHLORIDE 20 MEQ TABLET.ER. PO ONE (08:15)
[2018-06-25] MEDS: LOSARTAN POTASSIUM 25 MG TABLET. PO SCH (08:38)
[2018-06-25] MEDS: ASPIRIN ENTERIC COATED 81 MG TABLET.DR. PO SCH (08:38)
[2018-06-25] MEDS: FAMOTIDINE 20 MG TABLET. PO SCH (08:38)
[2018-06-25] MEDS: CARVEDILOL 12.5 MG TABLET. PO SCH ×2 (08:39→17:39)
[2018-06-25] MEDS: LACTOBACILLUS RHAMNOSUS GG 1 CAPSULE. PO SCH ×2 (08:39→21:25)
[2018-06-25] MEDS: FUROSEMIDE 20 MG/2 ML VIAL. IVP SCH (08:40)
[2018-06-25] MEDS: diphenhydrAMINE HCL 25 MG CAPSULE PO SCH (08:40)
[2018-06-25] MEDS: HYDROcodone/APAP 5/325MG 1 TAB TABLET PO PRN (08:40)
[2018-06-25] MEDS: POTASSIUM CHLORIDE 10 MEQ TABLET.ER. PO SCH (08:40)
[2018-06-25] MEDS: NYSTATIN TOPICAL POWDER 15GM BOTTLE. TP SCH ×2 (08:41→21:26)
[2018-06-25] MEDS: DICLOFENAC SODIUM 1% TOPICAL GEL 100GM TUBE. TP SCH ×4 (08:41→21:26)
[2018-06-25] MEDS: MINERAL OIL/PETROLATUM TOPICAL CREAM 113GM JAR. TP SCH ×2 (08:41→21:26)
[2018-06-25] MEDS: HYDROCORTISONE 1% TOPICAL CREAM 30GM TUBE. TP SCH ×2 (08:41→21:26)
[2018-06-25] MEDS ORDERED: POTASSIUM CHLORIDE 10 MEQ TABLET.ER. PO SCH (09:00)
[2018-06-25 11:00] VITALS: BP 150/93
--- NOTE | 2018-06-25 12:14 | NUR ---
Wound Care Wound care consult for buttock wounds. Pt has red dry skin on bilat buttocks from IAD that is resolving from previous visits. Cleansed area and applied A&D ointment. No open wounds found at this time. WC will sign off at this time. Please reconsult if new wounds develop. POC discussed with family and RN. Recommend turn Q2H and float heels for prevention.
--- NOTE | 2018-06-25 12:26 | NUR ---
SS following up with discharge planning. SS was notified that family wants to return to home with hospice. SS met with pt and sons in room. Pt's sons reported that they just want pt to be able to return to home and be comfortable and not have to keep coming back to the hospital. SS discussed services provided under the hospice umbrella. Pt's sons reported that they wanted to get services arranged with hospice and requested that SS phone and fax information to [facility], ; fax [phone]. SS phoned and faxed referral to [facility]. [facility] contacted SS and reported that they would be coming to the hospital to meet with pt and family soon. Pt's RN notified.
[2018-06-25] MEDS ORDERED: LORA2ORA7 PO (12:36)
[2018-06-25] MEDS ORDERED: MORP20SO PO (12:36)
[2018-06-25] MEDS ORDERED: CEFU250T59 PO (12:36)
--- NOTE | 2018-06-25 12:37 | SNU/HH DC ---
DISCHARGE ORDERS DISCHARGE INFORMATION: DISCHARGE DATE: Jun 26, 2018 FINAL DIAGNOSIS Problems Medical Problems: (1) CHF exacerbation Status: Acute (2) Hypoxia Status: Acute (3) UTI (urinary tract infection) Status: Acute CONDITION ON DISCHARGE: Stable CODE STATUS: Code Status: DNR/DNI HOSPICE: HOSPICE: Yes HOSPICE EVAL & TREAT: Yes POST DISCHARGE ORDERS: ACTIVITY ORDERS: No restrictions WEIGHT BEARING STATUS: No restrictions, Full weight bearing, As tolerated DIET AFTER DISCHARGE: Cardiac WOUND/INCISION CARE: No wound care needed CHECKS AFTER DISCHARGE: CHECKS AFTER DISCHARGE: Check blood press - daily, Check your Temp as needed, Weigh Yourself Daily TREATMENT/EQUIPMENT ORDERS: ADAPTIVE EQUIPMENT NEEDED: None RESPIRATORY EQUIPMENT NEEDED: Oxygen (2L prn), Nebulizer (QID prn) DISCHARGE MEDICATIONS: Home Meds Active Scripts Morphine Sulfate (MORPHINE SULFATE) 20 Mg/5 Ml Solution, 5 MG PO PRN Q3HRS PRN for shortness of breath for 30 Days, #30 MISC Prov:LEATHA GHOSH MD 06/25/18 Lorazepam (LORAZEPAM INTENSOL) 2 Mg/1 Ml Oral.conc, 2 MG PO Q3-4HRS PRN for ANXIETY / AGITATION for 30 Days, #30 MISC Prov:LEATHA GHOSH MD 06/25/18 Cefuroxime Axetil (CEFUROXIME) 250 Mg Tablet, 250 MG PO BID for UTI for 3 Days, #6 TAB Prov:LEATHA GHOSH MD 06/25/18 Ipratropium/Albuterol Sulfate (DUONEB 0.5-3(2.5) MG/3 ML) 3 Ml Ampul.neb, 3 ML NEB RTQID for soa MDD 1, #60 EACH Prov:MELANI HICKS MD 06/15/18 Carvedilol (CARVEDILOL ) 12.5 Mg Tablet, 12.5 MG PO BIDWMEALS for htn MDD 1, # 60 TAB Prov:MELANI HICKS MD 06/15/18 Nystatin (NYSTOP) 60 Gm Powder, 1 MI TP BID for folds MDD 1, #1 MISC Prov:MELANI HICKS MD 05/21/18 Losartan Potassium (COZAAR ) 25 Mg Tablet, 25 MG PO DAILY, #30 TAB Prov:JESUS MILLAN MD 01/28/16 Reported Medications Mineral Oil/I-Prop Myr/Water (Hydrocerin Lotion) 472 Ml Lotion, 472 ML TP BID for itching, MISC 06/23/18 Hydrocortisone/Aloe Vera (HYDROCORTISONE PLUS 1% CREAM) 28.4 Gm Cream..g., 28.4 GM TP BID for itching, EACH 06/23/18 Diclofenac Sodium (VOLTAREN) 100 Gm Gel..gram., 1 GM TP QID for Knee Pain, #100 GM 2 Refills 06/23/18 Diphenhydramine Hcl (BENADRYL) 25 Mg Capsule, 25 MG PO DAILY for allergies, CAP 06/12/18 Famotidine (FAMOTIDINE) 20 Mg Tablet, 20 MG PO DAILY for acid reflux, TAB 04/12/18 Aspirin (ASPIR-LOW) 81 Mg Tablet.dr, 81 MG PO DAILY for heart health, TAB.SR 04/12/18 Furosemide (FUROSEMIDE) 40 Mg Tablet, 40 MG PO DAILY for diuretic, TAB 04/12/18 Potassium Chloride (POTASSIUM CHLORIDE) 10 Meq Capsule.er, 10 MEQ PO DAILY, TAB.SR 01/23/16 Discontinued Reported Medications Hydrocodone/Acetaminophen (Hydrocodone-Acetamin 5-325 mg) 1 Each Tablet, 1 EACH PO PRN Q4HRS PRN for PAIN, TAB 06/12/18 LEATHA GHOSH MD Jun 25, 2018 12:37
--- NOTE | 2018-06-25 12:41 | PDOC3 ---
Discharge Summary Visit Information Date of Admission: Jun 23, 2018 Date of Discharge: Jun 26, 2018 Admitting Diagnosis: Diastolic CHF exacerbation Final Diagnosis Problems Medical Problems: (1) CHF exacerbation Status: Acute (2) Hypoxia Status: Acute (3) UTI (urinary tract infection) Status: Acute Brief Hospital Course Allergies Allergies Coded Allergies Type Severity Reaction Last Updated Verified No Known Drug Allergies 08/21/15 No Vital Signs Vital Signs Date Time Temp Pulse Resp B/P (MAP) Pulse Ox O2 Delivery O2 Flow Rate FiO2 06/25/18 11:07 Room Air 06/25/18 11:00 98.0 77 18 150/93 (112) 100 98.0 06/23/18 19:38 1.0 Lab Results Laboratory Tests Test 06/23/18 14:30 06/23/18 16:20 06/23/18 16:30 06/23/18 19:35 White Blood Count 7.9 x10^3/uL (4.0-11.0) Red Blood Count 4.82 x10^6/uL (3.50-5.40) Hemoglobin 14.1 g/dL (12.0-15.5) Hematocrit 43.8 % (36.0-47.0) Mean Corpuscular Volume 91 fL (79-100) Mean Corpuscular Hemoglobin 29 pg (25-35) Mean Corpuscular Hemoglobin Concent 32 g/dL (31-37) Red Cell Distribution Width 16.2 % (11.5-14.5) Platelet Count 228 x10^3/uL (140-400) Neutrophils (%) (Auto) 56 % (31-73) Lymphocytes (%) (Auto) 29 % (24-48) Monocytes (%) (Auto) 7 % (0-9) Eosinophils (%) (Auto) 7 % (0-3) Basophils (%) (Auto) 1 % (0-3) Neutrophils # (Auto) 4.5 x10^3uL (1.8-7.7) Lymphocytes # (Auto) 2.3 x10^3/uL (1.0-4.8) Monocytes # (Auto) 0.6 x10^3/uL (0.0-1.1) Eosinophils # (Auto) 0.5 x10^3/uL (0.0-0.7) Basophils # (Auto) 0.1 x10^3/uL (0.0-0.2) Urine Collection Type U cath Urine Color Yellow Urine Clarity Clear Urine pH 6.0 Urine Specific [place] 1.015 Urine Protein Negative mg/dL (NEG-TRACE) Urine Glucose (UA) Negative mg/dL (NEG) Urine Ketones (Stick) Negative mg/dL (NEG) Urine Blood Negative (NEG) Urine Nitrite Positive (NEG) Urine Bilirubin Negative (NEG) Urine Urobilinogen Dipstick 0.2 mg/dL (0.2 mg/dL) Urine Leukocyte Esterase Large (NEG) Urine RBC 0 /HPF (0-2) Urine WBC 20-40 /HPF (0-4) Urine Bacteria Many /HPF (0-FEW) Urine Hyaline Casts Few /HPF Sodium Level 143 mmol/L (136-145) Potassium Level 4.3 mmol/L (3.5-5.1) Chloride Level 103 mmol/L (98-107) Carbon Dioxide Level 29 mmol/L (21-32) Anion Gap 11 (6-14) Blood Urea Nitrogen 24 mg/dL (7-20) Creatinine 1.2 mg/dL (0.6-1.0) Estimated GFR (Cockcroft-Gault) 42.6 BUN/Creatinine Ratio 20 (6-20) Glucose Level 115 mg/dL (70-99) Calcium Level 9.1 mg/dL (8.5-10.1) Magnesium Level 1.7 mg/dL (1.8-2.4) Total Bilirubin 0.5 mg/dL (0.2-1.0) Aspartate Amino Transf (AST/SGOT) 16 U/L (15-37) Alanine Aminotransferase (ALT/SGPT) 21 U/L (14-59) Alkaline Phosphatase 75 U/L (46-116) Creatine Kinase 17 U/L (26-192) Creatine Kinase MB (Mass) 0.6 ng/mL (0.0-3.6) Creatine Kinase MB Relative Index % (0-4) Troponin I Quantitative 0.049 ng/mL (0.000-0.055) 0.052 ng/mL (0.000-0.055) TL-[place]-K-Type Natriuretic Peptide 1757 pg/mL (0-449) Total Protein 5.9 g/dL (6.4-8.2) Albumin 2.8 g/dL (3.4-5.0) Albumin/Globulin Ratio 0.9 (1.0-1.7) Test 06/23/18 22:20 06/24/18 08:40 06/25/18 04:30 Troponin I Quantitative 0.036 ng/mL (0.000-0.055) White Blood Count 9.1 x10^3/uL (4.0-11.0) Red Blood Count 4.78 x10^6/uL (3.50-5.40) Hemoglobin 14.2 g/dL (12.0-15.5) Hematocrit 43.1 % (36.0-47.0) Mean Corpuscular Volume 90 fL (79-100) Mean Corpuscular Hemoglobin 30 pg (25-35) Mean Corpuscular Hemoglobin Concent 33 g/dL (31-37) Red Cell Distribution Width 15.9 % (11.5-14.5) Platelet Count 211 x10^3/uL (140-400) Neutrophils (%) (Auto) 85 % (31-73) Lymphocytes (%) (Auto) 12 % (24-48) Monocytes (%) (Auto) 2 % (0-9) Eosinophils (%) (Auto) 0 % (0-3) Basophils (%) (Auto) 0 % (0-3) Neutrophils # (Auto) 7.8 x10^3uL (1.8-7.7) Lymphocytes # (Auto) 1.1 x10^3/uL (1.0-4.8) Monocytes # (Auto) 0.2 x10^3/uL (0.0-1.1) Eosinophils # (Auto) 0.0 x10^3/uL (0.0-0.7) Basophils # (Auto) 0.0 x10^3/uL (0.0-0.2) Segmented Neutrophils % 83 % (35-66) Band Neutrophils % 2 % (0-9) Lymphocytes % 12 % (24-48) Monocytes % 3 % (0-10) Platelet Estimate Adequate (ADEQUATE) D-Dimer (Kathrin) 3.44 ug/mlFEU (0.00-0.50) Sodium Level 143 mmol/L (136-145) 140 mmol/L (136-145) Potassium Level 4.0 mmol/L (3.5-5.1) 3.2 mmol/L (3.5-5.1) Chloride Level 105 mmol/L (98-107) 103 mmol/L (98-107) Carbon Dioxide Level 27 mmol/L (21-32) 26 mmol/L (21-32) Anion Gap 11 (6-14) 11 (6-14) Blood Urea Nitrogen 28 mg/dL (7-20) 28 mg/dL (7-20) Creatinine 1.2 mg/dL (0.6-1.0) 1.2 mg/dL (0.6-1.0) Estimated GFR (Cockcroft-Gault) 42.6 42.6 Glucose Level 130 mg/dL (70-99) 100 mg/dL (70-99) Calcium Level 9.3 mg/dL (8.5-10.1) 9.2 mg/dL (8.5-10.1) Phosphorus Level 3.2 mg/dL (2.6-4.7) Magnesium Level 1.8 mg/dL (1.8-2.4) Albumin 2.7 g/dL (3.4-5.0) Laboratory Tests Test 06/25/18 04:30 Sodium Level 140 mmol/L (136-145) Potassium Level 3.2 mmol/L (3.5-5.1) Chloride Level 103 mmol/L (98-107) Carbon Dioxide Level 26 mmol/L (21-32) Anion Gap 11 (6-14) Blood Urea Nitrogen 28 mg/dL (7-20) Creatinine 1.2 mg/dL (0.6-1.0) Estimated GFR (Cockcroft-Gault) 42.6 Glucose Level 100 mg/dL (70-99) Calcium Level 9.2 mg/dL (8.5-10.1) Phosphorus Level 3.2 mg/dL (2.6-4.7) Magnesium Level 1.8 mg/dL (1.8-2.4) Albumin 2.7 g/dL (3.4-5.0) Brief Hospital Course Ms Alonso is an 88yo F w/ PMHx COPD, AFib, hypertension, hyperlipidemia, hypothyroidism, chronic knee pain, hypokalemia, right shoulder surgery, right jaw surgery and heavy alcohol abuse who was admitted for worsening shortness of breath, weakness, hypoxia. Given Bumex in ED and after her CXR shows clearing of bilateral opacities and pleural effusions. She is still feeling very weak. Does not feel she can even get out of bed to urinate. Short of breath. Denies CP, no abdominal pain Urine positive for nitrites and leuk esterase, improved symptomatically with rocephin IV x2. Patient's son who is present at bedside states that the patient has had three nebulizer treatments today with temporary relief. Patient states that she noticed her shortness of breath is worse with laying flat. Upon arrival, patient is complaining of feeling weak. Patient states that her shortness of breath is improved. Per son, the patient has been very fatigued today. Patient' s son states that the patient was admitted to [facility] a few weeks ago where she was diagnosed with congestive heart failure. Patient is on Lasix 40mg/daily. She is feeling improved, discussed recurrent hospital stay and she and patients sons all agree hospice at home would be appropriate. Electrolytes replaced Plan: Home with hospice. D/w nursing and SW A/P: Shortness of breath - combination of mild CHF exacerbation with possibly bronchitis [id number] systolic and diastolic heart failure - Given bumex and lasix with good diuresis, cont PO or IM at home with prn O2 UTI - positive LE and nitrites - f/u culture data and give rocephin - ceftin to finish treatment course hypokalemia - replaced hyperglycemia - monitor, sliding scale Severe protein calorie malnutrition - albumin low Low UOP - PVR Greater than 30 minutes spent on discharge including hospice coordination Discharge Information Condition at Discharge: Improved Follow Up: Weeks (2) Disposition/Orders: D/C to Home w/ Hospice Scheduled Aspirin (Aspir-Low) 81 Mg Tablet., 81 MG PO DAILY for heart health, (Reported) Entered as Reported by: OSBALDO STROUD on 04/12/18 1259 Last Action: Continued on 06/23/182021 by GE ESPINOZA MD Carvedilol (Carvedilol ) 12.5 Mg Tablet, 12.5 MG PO BIDWMEALS for htn MDD 1, # 60 Prescribed by: MELANI HICKS on 06/15/18 0819 Last Action: Continued on 06/23/182021 by GE ESPINOZA MD Cefuroxime Axetil (Cefuroxime) 250 Mg Tablet, 250 MG PO BID for UTI for 3 Days, #6 Prescribed by: LEATHA GHOSH MD on 06/25/18 1236 Diclofenac Sodium (Voltaren) 100 Gm Gel..gram., 1 GM TP QID for Knee Pain, #100 Ref 2 (Reported) Entered as Reported by: ANNEMARIE CARTER on 06/23/181910 Last Action: Continued on 06/24/18 1149 by ANNEMARIE CARTER Diphenhydramine Hcl (Benadryl) 25 Mg Capsule, 25 MG PO DAILY for allergies, ( Reported) Entered as Reported by: THANG HUI on 06/12/18 1305 Last Action: Continued on 06/23/182021 by GE ESPINOZA MD Famotidine (Famotidine) 20 Mg Tablet, 20 MG PO DAILY for acid reflux, (Reported) Entered as Reported by: OSBALDO STROUD on 04/12/18 1259 Last Action: Continued on 06/23/182021 by GE ESPINOZA MD Furosemide (Furosemide) 40 Mg Tablet, 40 MG PO DAILY for diuretic, (Reported) Entered as Reported by: OSBALDO STROUD on 04/12/18 1259 Last Action: HELD on 06/24/18 145 by LEATHA GHOSH MD Hydrocortisone/Aloe Vera (Hydrocortisone Plus 1% Cream) 28.4 Gm Cream..g., 28.4 GM TP BID for itching, (Reported) Entered as Reported by: ANNEMARIE CARTER on 06/23/181910 Last Action: Converted on 06/24/181453 by LEATHA GHOSH MD Ipratropium/Albuterol Sulfate (Duoneb 0.5-3(2.5) Mg/3 Ml) 3 Ml Ampul.neb, 3 ML NEB RTQID for soa MDD 1, #60 Prescribed by: MELANI HICKS on 06/15/18 0819 Last Action: Continued on 06/23/182021 by GE ESPINOZA MD Losartan Potassium (Cozaar ) 25 Mg Tablet, 25 MG PO DAILY, #30 Prescribed by: JESUS MILLAN MD on 01/28/16 1415 Last Action: Continued on 06/23/182021 by GE ESPINOZA MD Mineral Oil/I-Prop Myr/Water (Hydrocerin Lotion) 472 Ml Lotion, 472 ML TP BID for itching, (Reported) Entered as Reported by: ANNEMARIE CARTER on 06/23/181910 Last Action: Converted on 06/24/181453 by LEATHA GHOSH MD Nystatin (Nystop) 60 Gm Powder, 1 MI TP BID for folds MDD 1, #1 Prescribed by: MELANI HICKS on 05/21/18 0857 Last Action: Continued on 06/23/182021 by GE ESPINOZA MD Potassium Chloride (Potassium Chloride) 10 Meq Capsule.er, 10 MEQ PO DAILY, ( Reported) Entered as Reported by: Sun Fernandez on 01/23/162120 Last Action: Continued on 06/24/18 1259 by ANNEMARIE CARTER Scheduled PRN Lorazepam (Lorazepam Intensol) 2 Mg/1 Ml Oral.conc, 2 MG PO Q3-4HRS PRN for ANXIETY / AGITATION for 30 Days, #30 Prescribed by: LEATHA GHOSH MD on 06/25/18 1236 Morphine Sulfate (Morphine Sulfate) 20 Mg/5 Ml Solution, 5 MG PO PRN Q3HRS PRN for shortness of breath for 30 Days, #30 Prescribed by: LEATHA GHOSH MD on 06/25/18 1236 Discontinued Medications Hydrocodone/Acetaminophen (Hydrocodone-Acetamin 5-325 mg) 1 Each Tablet, 1 EACH PO PRN Q4HRS PRN for PAIN, (Reported) Entered as Reported by: THANG HUI on 06/12/18 1404 Last Action: Continued on 06/23/182021 by MD AUGIE PALOMARES CHRISTOPHER S MD Jun 25, 2018 12:41
[2018-06-25 15:09] VITALS: BP 144/81
[2018-06-25] MEDS: cefTRIAXone IV Push 1 GM VIAL. IVP SCH (16:08)
[2018-06-25 19:20] VITALS: BP 126/83
[2018-06-25 23:38] VITALS: BP 145/81
[2018-06-26] MEDS: FUROSEMIDE 20 MG/2 ML VIAL. IVP SCH (01:11)
[2018-06-26 03:15] VITALS: BP 156/86
[2018-06-26] MEDS: HEPARIN for SUB-Q USE 5,000 UNIT/ML VIAL. SQ SCH (06:30)
[2018-06-26 07:00] VITALS: BP 164/94
[2018-06-26] MEDS: IPRATRPIUM/ALBUTEROL 0.5/2.5MG 3 ML NEBU. NEB SCH ×2 (07:39→11:30)
[2018-06-26] MEDS: DICLOFENAC SODIUM 1% TOPICAL GEL 100GM TUBE. TP SCH (08:59)
[2018-06-26] MEDS ORDERED: FUROSEMIDE 40 MG TABLET. PO SCH (09:00)
[2018-06-26] MEDS: HYDROCORTISONE 1% TOPICAL CREAM 30GM TUBE. TP SCH (09:01)
[2018-06-26] MEDS: MINERAL OIL/PETROLATUM TOPICAL CREAM 113GM JAR. TP SCH (09:01)
[2018-06-26] MEDS: FAMOTIDINE 20 MG TABLET. PO SCH (09:01)
[2018-06-26] MEDS: diphenhydrAMINE HCL 25 MG CAPSULE PO SCH (09:01)
[2018-06-26] MEDS: NYSTATIN TOPICAL POWDER 15GM BOTTLE. TP SCH (09:01)
[2018-06-26] MEDS: CARVEDILOL 12.5 MG TABLET. PO SCH (09:02)
[2018-06-26] MEDS: POTASSIUM CHLORIDE 10 MEQ TABLET.ER. PO SCH (09:02)
[2018-06-26] MEDS: ASPIRIN ENTERIC COATED 81 MG TABLET.DR. PO SCH (09:03)
[2018-06-26] MEDS: LOSARTAN POTASSIUM 25 MG TABLET. PO SCH (09:03)
[2018-06-26] MEDS: LACTOBACILLUS RHAMNOSUS GG 1 CAPSULE. PO SCH (09:03)
[2018-06-26] MEDS: HYDROcodone/APAP 5/325MG 1 TAB TABLET PO PRN (09:08)
[2018-06-26 11:00] VITALS: BP 116/67
--- NOTE | 2018-06-26 11:08 | PDOC ---
PROGRESS NOTES Chief Complaint Chief Complaint A/P: Shortness of breath - combination of mild CHF exacerbation with possibly bronchitis Dyyic-wj-jgwgojr systolic and diastolic heart failure - will change to IV lasix , monitor fluid status closely with age, renal panel daily. Cont diuresis, herrera if necessary. UTI - positive LE and nitrites - f/u culture data and give rocephin hypokalemia - monitor hyperglycemia - monitor, sliding scale Severe protein calorie malnutrition - albumin low Low UOP - PVR FEN - cardiac diet PPX - heparin Full code Dispo - inpatient for acute CHF and UTI. PT/OT, may need placement for recovery from this CHF exacerbation History of Present Illness History of Present Illness Ms Alonso is an 88yo F w/ PMHx COPD, AFib, hypertension, hyperlipidemia, hypothyroidism, chronic knee pain, hypokalemia, right shoulder surgery, right jaw surgery and heavy alcohol abuse who was admitted for worsening shortness of breath, weakness, hypoxia. Given Bumex in ED and after her CXR shows clearing of bilateral opacities and pleural effusions. She is still feeling very weak. Does not feel she can even get out of bed to urinate. Short of breath. Denies CP, no abdominal pain Urine positive for nitrites and leuk esterase. Patient's son who is present at bedside states that the patient has had three nebulizer treatments today with temporary relief. Patient states that she noticed her shortness of breath is worse with laying flat. Upon arrival, patient is complaining of feeling weak. Patient states that her shortness of breath is improved. Per son, the patient has been very fatigued today. Patient' s son states that the patient was admitted to [facility] a few weeks ago where she was diagnosed with congestive heart failure. Patient is on Lasix 40mg/daily. She is feeling improved, discussed recurrent hospital stay and she and patients sons all agree hospice at home would be appropriate Plan: Home with hospice. D/w nursing and SW Vitals Vitals Vital Signs Date Time Temp Pulse Resp B/P (MAP) Pulse Ox O2 Delivery O2 Flow Rate FiO2 06/26/18 09:08 Room Air 06/26/18 09:03 54 164/94 06/26/18 07:41 96 06/26/18 07:00 97.7 1.0 97.7 06/26/18 03:15 18 Physical Exam General: Alert, Cooperative, No acute distress Heart: Regular rate Lungs: Clear Extremities: No clubbing, No cyanosis, Normal pulses, No tenderness/swelling, Other (1+ edema) Skin: No rashes, No breakdown, No significant lesion Assessment and Plan Assessmemt and Plan Problems Medical Problems: (1) CHF exacerbation Status: Acute (2) Hypoxia Status: Acute (3) UTI (urinary tract infection) Status: Acute Comment Review of Relevant I have reviewed the following items lupe (where applicable) has been applied. Labs Laboratory Tests Test 06/25/18 04:30 Sodium Level 140 mmol/L (136-145) Potassium Level 3.2 mmol/L (3.5-5.1) Chloride Level 103 mmol/L (98-107) Carbon Dioxide Level 26 mmol/L (21-32) Anion Gap 11 (6-14) Blood Urea Nitrogen 28 mg/dL (7-20) Creatinine 1.2 mg/dL (0.6-1.0) Estimated GFR (Cockcroft-Gault) 42.6 Glucose Level 100 mg/dL (70-99) Calcium Level 9.2 mg/dL (8.5-10.1) Phosphorus Level 3.2 mg/dL (2.6-4.7) Magnesium Level 1.8 mg/dL (1.8-2.4) Albumin 2.7 g/dL (3.4-5.0) Microbiology 06/23/18 Urine Culture - Preliminary, Resulted 06/23/18 Urine Culture Result 1 (ZORA) - Preliminary, Resulted Medications Current Medications Dexamethasone Sodium Phosphate (Decadron) 10 mg 1X ONCE IV Last administered on 06/23/18at 15:28; Start 06/23/18 at 15:30; Stop 06/23/18 at 15:31; Status DC Aspirin (Neel Aspirin) 325 mg 1X ONCE PO Last administered on 06/23/18at 15:44 ; Start 06/23/18 at 15:30; Stop 06/23/18 at 15:31; Status DC Dexamethasone Sodium Phosphate (Decadron) 10 mg 1X ONCE IV ; Start 06/23/18 at 15:30; Stop 06/23/18 at 15:31; Status DC Albuterol/ Ipratropium (Duoneb) 3 ml RTQID NEB Last administered on 06/23/18at 19:37; Start 06/23/18 at 16:30; Stop 06/23/18 at 20:30; Status DC Ceftriaxone Sodium (Rocephin) 1 gm 1X ONCE IVP Last administered on 06/23/18 18:14; Start 06/23/18 at 17:00; Stop 06/23/18 at 17:01; Status DC Bumetanide (Bumex) 0.5 mg 1X ONCE IV Last administered on 06/23/18at 20:50; Start 06/23/18 at 17:45; Stop 06/23/18 at 17:47; Status DC Aspirin (Ecotrin) 81 mg DAILY PO Last administered on 06/26/18 09:03; Start at 09:00 Carvedilol (Coreg) 12.5 mg BIDWMEALS PO Last administered on 06/26/18 09:02; Start 06/24/18 at 08:00 Diphenhydramine HCl (Benadryl) 25 mg DAILY PO Last administered on 06/26/18 09 :01; Start 06/24/18 at 09:00 Famotidine (Pepcid) 20 mg DAILY PO Last administered on 06/26/18 09:01; Start 06/24/18 at 09:00 Acetaminophen/ Hydrocodone Bitart (Lortab 5/325) 1 tab PRN Q4HRS PRN PO PAIN Last administered on 06/26/18 09:08; Start 06/23/18 at 20:30 Albuterol/ Ipratropium (Duoneb) 3 ml RTQID NEB Last administered on 06/26/18 07:39; Start 06/24/18 at 08:00 Losartan Potassium (Cozaar) 25 mg DAILY PO Last administered on 06/26/18 09:03 ; Start 06/24/18 at 09:00 Nystatin (Nystop) 1 bret BID TP Last administered on 06/26/18 09:01; Start at 21:00 Diclofenac Sodium (Voltaren) 1 bret QID TP Last administered on 06/26/18 08:59 ; Start 06/24/18 at 13:00 Furosemide (Lasix) 20 mg BID92 IVP Last administered on 06/25/18 08:40; Start 06/24/18 at 14:00; Stop 06/25/18 at 15:52; Status DC Potassium Chloride (Klor-Con) 10 meq DAILY PO ; Start 06/25/18 at 09:00; Stop at 09:00; Status DC Potassium Chloride (Klor-Con) 10 meq DAILY PO Last administered on 06/26/18 09 :02; Start 06/24/18 at 13:15 Hydrocortisone (Cortaid) 1 bret BID TP Last administered on 06/26/18 09:01; Start 06/24/18 at 21:00 Multi-Ingred Cream/Lotion/Oil/ Oint (Hydrocerin Cream) 1 bret BID TP Last administered on 06/26/18 09:01; Start 06/24/18 at 21:00 Ceftriaxone Sodium (Rocephin) 1 gm Q24H IVP Last administered on 06/25/18 16: 08; Start 06/24/18 at 15:00 Heparin Sodium (Porcine) (Heparin Sodium) 5,000 unit Q8HRS SQ Last administered on 06/26/18 06:30; Start 06/24/18 at 15:00 Potassium Chloride (Klor-Con) 40 meq 1X ONCE PO Last administered on 08:38; Start 06/25/18 at 08:15; Stop 06/25/18 at 08:18; Status DC Lactobacillus Rhamnosus (Culturelle) 1 cap BID PO Last administered on 09:03; Start 06/25/18 at 09:00 Furosemide (Lasix) 40 mg DAILY PO Last administered on 06/26/18 09:02; Start 06/26/18 at 09:00 Active Scripts Active Morphine Sulfate 20 Mg/5 Ml Solution 5 Mg PO PRN Q3HRS PRN 30 Days Lorazepam Intensol (Lorazepam) 2 Mg/1 Ml Oral.conc 2 Mg PO Q3-4HRS PRN 30 Days Cefuroxime (Cefuroxime Axetil) 250 Mg Tablet 250 Mg PO BID 3 Days Duoneb 0.5-3(2.5) Mg/3 Ml (Albuterol/Ipratropium) 3 Ml Ampul.neb 3 Ml NEB RTQID MDD 1 Carvedilol (Carvedilol) 12.5 Mg Tablet 12.5 Mg PO BIDWMEALS MDD 1 Nystop (Nystatin) 60 Gm Powder 1 Bret TP BID MDD 1 Cozaar (Losartan Potassium) 25 Mg Tablet 25 Mg PO DAILY Reported Hydrocerin Lotion (Mineral Oil/I-Prop Myr/Water) 472 Ml Lotion 472 Ml TP BID Hydrocortisone Plus 1% Cream (Hydrocortisone/Aloe Vera) 28.4 Gm Cream..g. 28.4 Gm TP BID Voltaren (Diclofenac Sodium) 100 Gm Gel..gram. 1 Gm TP QID Benadryl (Diphenhydramine Hcl) 25 Mg Capsule 25 Mg PO DAILY Famotidine 20 Mg Tablet 20 Mg PO DAILY Aspir-Low (Aspirin) 81 Mg Tablet.dr 81 Mg PO DAILY Furosemide 40 Mg Tablet 40 Mg PO DAILY Potassium Chloride 10 Meq Capsule.er 10 Meq PO DAILY Vitals/I & O Vital Sign - Last 24 Hours 06/25/18 06/25/18 06/25/18 06/25/18 11:07 15:09 15:22 17:39 Temp 97.8 97.8 Pulse 81 81 Resp 18 B/P (MAP) 144/81 (102) 144/81 Pulse Ox 99 O2 Delivery Room Air Room Air Room Air 06/25/18 06/25/18 06/25/18 06/25/18 19:20 19:36 19:40 23:38 Temp 97.7 97.7 97.7 97.7 Pulse 76 77 Resp 20 20 B/P (MAP) 126/83 (97) 145/81 (102) Pulse Ox 97 91 O2 Delivery Room Air Room Air Room Air Room Air 06/26/18 06/26/18 06/26/18 06/26/18 03:15 07:00 07:41 08:00 Temp 97.4 97.7 97.4 97.7 Pulse 94 54 Resp 18 B/P (MAP) 156/86 (109) 164/94 (117) Pulse Ox 97 100 96 O2 Delivery Room Air Room Air Room Air Room Air O2 Flow Rate 1.0 06/26/18 06/26/18 06/26/18 09:02 09:03 09:08 Pulse 54 54 B/P (MAP) 164/94 164/94 O2 Delivery Room Air Intake and Output 06/25/18 06/25/18 06/26/18 15:00 23:00 07:00 Intake Total 100 ml 100 ml Output Total 750 ml 800 ml 285 ml Balance -750 ml -700 ml -185 ml LEATHA GHOSH MD Jun 26, 2018 11:08
--- NOTE | 2018-06-26 12:36 | NUR ---
After having peripheral IV removed by PACKING MACHINE OPERATOR while this nurse was getting pt. DC paperwork together, pt. and her two sons got belongings together and had PACKING MACHINE OPERATOR take them out to their private vehicle. Pt. and family walked out without signing DC paperwork. This nurse was able to catch them as pt. was getting into vehicle but was unable to get DC wound photos. This nurse provided family with DC paperwork, prescriptions, and educational information regarding pt. in-patient stay. This nurse answered questions family had and provided family with the phone number to call if any questions come up. This nurse provided family with packet for the in-home hospice agency.
== END 2018-06-26 12:02 | disposition hospice, home (50) | DRG 871 ==
LOC: ER 14:10 → 2 SOUTH 16:10
PROVIDERS: ADMIT Internal Medicine; ATTEND Internal Medicine
DX: A41.9 Sepsis, unspecified organism (principal); E43 Unspecified severe protein-calorie malnutrition; I50.43 Acute on chronic combined systolic (congestive) and diastolic (congestive) heart failure; N39.0 Urinary tract infection, site not specified; I11.0 Hypertensive heart disease with heart failure; E03.9 Hypothyroidism, unspecified; E78.5 Hyperlipidemia, unspecified; E87.6 Hypokalemia; I48.91 Unspecified atrial fibrillation; J44.9 Chronic obstructive pulmonary disease, unspecified; R09.02 Hypoxemia; G89.29 Other chronic pain; F10.10 Alcohol abuse, uncomplicated; M19.90 Unspecified osteoarthritis, unspecified site
CPT/HCPCS: 36415; 71046; 80048; 80053; 80069; 81001; 82553; 83735; 83880; 84484; 85007; 85025; 85379; 87086; 87186; 93005; 94640; 94760; 96374; 96375; J0696; J1100; J1644; J1940; J3490; J7620; Q0163; 97535; 99285-25